=== PATIENT | female | born 1945 | race Caucasian/White ===

== ENCOUNTER 2018-01-21 13:04 | Outpatient (REF) | payer MEDICARE, SELFPAY ==
[2018-01-21 14:19] LABS: ALT 21 U/L (12-78); AST 19 U/L (15-37); Albumin 3.3 g/dL (3.4-5.0); Alkaline Phosphatase 301 U/L (46-116); Anion Gap 11.7 mmol/L (3-11); BUN 50 mg/dL (7-18); Bilirubin, Total 0.3 mg/dL (0.2-1.0); CO2 23.3 mmol/L (21.0-32.0); CREATININE 1.22 mg/dL (0.55-1.02); Calcium 9.3 mg/dL (8.5-10.1); Chloride 101 mmol/L (98-107); Estimated GFR 43.57 (mL/min/1.73m2); Glucose 120 mg/dL (70-100); Potassium 4.6 mmol/L (3.5-5.1); Sodium 136 mmol/L (136-145); TSH (W/Ref FT4) 0.93 uIU/mL (0.358-3.74); Total Protein 6.9 g/dL (6.4-8.2)
[2018-01-21 14:50] LABS: Abs Immature Grans 0.08 k/cumm (0.0-0.09); Absolute Basophil Count 0.05 k/cumm (0.0-0.2); Absolute Eosinophil Count 0.38 k/cumm (0.0-0.7); Absolute Monocyte Count 0.62 k/cumm (0.11-0.7); Absolute Neutrophil Count 4.24 k/cumm (1.2-6.7); Basophils % 0.7; Eosinophils % 5.5; HCT 30.7 % (36.0-46.0); HGB 9.5 g/dL (12.0-15.5); Immature Grans % 1.1; Mean Corp. HGB Concentration 30.9 g/dL (32.0-36.0); Mean Corpuscular Hemoglobin 29.1 pg (27.0-33.0); Mean Corpuscular Volume 94.2 fL (80-95); Mean Platelet Volume 9.2 fL (8.0-11.0); Monocytes % 8.9; Neutrophils % 60.8; RBC 3.26 m/cumm (4.00-5.20); RBC Distribution Width 15.5 % (11.7-14.6); White Blood Cell Count 6.97 k/cumm (4.4-10.8)
[2018-01-21 15:23] LABS: Platelet Count 830 x1000/uL (130-400)
[2018-01-21 15:24] LABS: Anisocytosis 1+; Diff Comment RBC Morph Reviewed; Hypochromasia 1+; Polychromasia Present
== END 2018-01-21 13:05 ==
LOC: LBN 13:04
PROVIDERS: PCP Nurse Practitioner Family; Visit Provider Family Medicine
DX: I10 Essential (primary) hypertension (principal); E78.5 Hyperlipidemia, unspecified
CPT/HCPCS: 80053; 83735; 84443; 85025

== ENCOUNTER 2018-01-29 13:41 | Outpatient (REF) | payer MEDICARE, SELFPAY ==
[2018-01-29 14:35] LABS: Abs Immature Grans 0.03 k/cumm (0.0-0.09); Absolute Basophil Count 0.03 k/cumm (0.0-0.2); Absolute Eosinophil Count 0.46 k/cumm (0.0-0.7); Absolute Monocyte Count 0.33 k/cumm (0.11-0.7); Absolute Neutrophil Count 3.19 k/cumm (1.2-6.7); Basophils % 0.5; Eosinophils % 7.9; HCT 32.5 % (36.0-46.0); Immature Grans % 0.5; Lymphocytes % 30.8; Mean Corp. HGB Concentration 30.8 g/dL (32.0-36.0); Mean Corpuscular Hemoglobin 29.9 pg (27.0-33.0); Mean Platelet Volume 10.5 fL (8.0-11.0); Monocytes % 5.7; Neutrophils % 54.6; Platelet Count 421 x1000/uL (130-400); RBC 3.35 m/cumm (4.00-5.20); RBC Distribution Width 15.2 % (11.7-14.6); White Blood Cell Count 5.84 k/cumm (4.4-10.8)
[2018-01-29 14:58] LABS: Diff Comment PLT Morph Reviewed; RBC Morphology Normal
== END 2018-01-29 13:42 ==
LOC: LBN 13:41
PROVIDERS: PCP Nurse Practitioner Family; Visit Provider Family Medicine
DX: R53.83 Other fatigue (principal)
CPT/HCPCS: 85025

== ENCOUNTER 2018-08-02 22:51 | Inpatient (IN) | payer MEDICARE, SELFPAY ==
[2018-08-02 23:18] VITALS: BP 158/64; PULSE 105; RESP 17; TEMP 36.9; O2SAT 96
[2018-08-02] MEDS: Lactated Ringers 1,000 ML 125 ML IV (23:20)
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
[2018-08-03] VITALS (25 sets, daily range): BP systolic 91–165; BP diastolic 46–91; PULSE 75–102; RESP 12–19; TEMP 36.4–37.9; O2SAT 92–100
[2018-08-03] MEDS: MORPHine 10 MG/ML VIAL IVP ×4 (00:28→06:49)
[2018-08-03] MEDS: Metoprolol 5 MG/5 ML VIAL IVP ×2 (05:09→18:18)
[2018-08-03] MEDS: Levothyroxine 75 MCG TAB PO (05:27)
[2018-08-03] MEDS: Lactated Ringers 1,000 ML 125 ML IV (06:41)
[2018-08-03 07:18] LABS: Absolute Basophil Count 0.01 k/cumm (0.0-0.2); Absolute Eosinophil Count 0.05 k/cumm (0.0-0.7); Absolute Lymphocyte Count 1.43 k/cumm (1.2-3.4); Absolute Monocyte Count 0.78 k/cumm (0.11-0.7); Absolute Neutrophil Count 4.67 k/cumm (1.2-6.7); Basophils % 0.1; Eosinophils % 0.7; HCT 33.1 % (36.0-46.0); HGB 10.8 g/dL (12.0-15.5); Lymphocytes % 20.6; Mean Corp. HGB Concentration 32.6 g/dL (32.0-36.0); Mean Corpuscular Hemoglobin 30.2 pg (27.0-33.0); Mean Corpuscular Volume 92.5 fL (80-95); Mean Platelet Volume 9.4 fL (8.0-11.0); Monocytes % 11.2; Neutrophils % 67.4; Platelet Count 319 x1000/uL (130-400); RBC 3.58 m/cumm (4.00-5.20); RBC Distribution Width 15.6 % (11.7-14.6); White Blood Cell Count 6.94 k/cumm (4.4-10.8)
[2018-08-03 07:38] LABS: Anion Gap 9.5 mmol/L (3-11); BUN 14 mg/dL (7-18); CO2 26.5 mmol/L (21.0-32.0); CREATININE 0.78 mg/dL (0.55-1.02); Calcium 8.5 mg/dL (8.5-10.1); Chloride 103 mmol/L (98-107); Glucose 134 mg/dL (70-100); Magnesium 1.4 mg/dL (1.8-2.4); Potassium 3.4 mmol/L (3.5-5.1); Sodium 139 mmol/L (136-145); TSH (W/Ref FT4) 4.09 uIU/mL (0.358-3.74)
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
[2018-08-03 07:54] LABS: FREE T4 1.15 ng/dL (0.76-1.46)
[2018-08-03] MEDS: Gabapentin 100 MG CAP PO ×3 (08:19→20:57)
[2018-08-03] MEDS: Omeprazole 20 MG CAPCR PO (08:19)
[2018-08-03] MEDS: Citalopram 20 MG TAB 40 MG PO (08:19)
[2018-08-03] MEDS: amLODIPine 5 MG TAB PO (08:19)
[2018-08-03] MEDS: Lactated Ringers 1,000 ML 75 ML IV (09:40)
[2018-08-03] MEDS: Bupivacaine 0.25% Pres-Free 30 ML VIAL (10:21)
--- NOTE | 2018-08-03 10:32 | DI.RAD_ITS ---
SYMPTOM/DIAGNOSIS: H/O ATYPICAL FEMUR FX, S/P IMN OF FEMUR FX LEFT FEMUR: No fracture or dislocation is seen. There is hardware in the proximal tibia. IMPRESSION: No acute abnormality RIGHT FEMUR: An intramedullary romero has been placed through the femur for fixation of a previously noted fracture in the upper third of the femur. The alignment now appears anatomic. RIGHT FEMUR IN OR: Fluoroscopy Time: 136.7 sec, 8.67 mGy Fluoroscopy was provided in the OR for Dr. Best. Hard copy images show placement of an intramedullary romero through the femur for fixation of the previously noted fracture. The alignment appears anatomic.
--- NOTE | 2018-08-03 12:02 | DI.VRAD_ITS ---
EXAM: XR Right Femur, 2 Views EXAM DATE/TIME: 08/03/2018 10:29 AM CLINICAL HISTORY: 73 years old, female; Pain; Hip; Right; Prior surgery; Surgery date: Post-operative (0-2 days); Surgery type: Imn; Patient HX: S/P imn of RT femur fracture. TECHNIQUE: XR Right femur, 2 views COMPARISON: RF RIGHT HIP, TNFR RT FEMUR 08/03/2018 9:43 AM FINDINGS: Bones/joints: Placement of large intramedullary romero in the femoral shaft with near anatomic alignment and position of femoral shaft fracture. Chronic metallic fixation of the proximal tibia with healed fracture. Soft tissues: Soft tissue emphysema over the lateral right thigh and in the region of the right femoral shaft consistent with recent surgery. Skin cordelia along the lateral aspect of the thigh. IMPRESSION: 1. Soft tissue emphysema over the lateral right thigh and in the region of the right femoral shaft consistent with recent surgery. 2. Skin cordelia along the lateral aspect of the thigh. 3. Placement of large intramedullary romero in the femoral shaft with near anatomic alignment and position of femoral shaft fracture. Dictated and Authenticated by: Tim Palmer MD. Ordering:JUAN ANTONIO Jones MD
--- NOTE | 2018-08-03 12:04 | DI.VRAD_ITS ---
EXAM: XR Left Femur, 2 Views EXAM DATE/TIME: 08/03/2018 11:55 AM CLINICAL HISTORY: 73 years old, female; Pain; Hip and other: Femur; Left; Patient HX: H/o of atypical femur FX on RT. TECHNIQUE: XR Left femur, 2 views COMPARISON: No relevant prior studies available. FINDINGS: Bones/joints: Metallic fixation of healed proximal tibial fracture versus healed osteotomy. Soft tissues: Normal. IMPRESSION: Metallic fixation of healed proximal tibial fracture versus healed osteotomy. Probable oblique vascular nutrient channel over the mid femoral shaft. Dictated and Authenticated by: Tim Palmer MD. Ordering:JUAN ANTONIO Jones MD
[2018-08-03] MEDS: POTASSIUM CHLORIDE 20 MEQ/100 ML BAG 50 MEQ IVPB ×2 (12:33→16:21)
[2018-08-03] MEDS: MAGNESIUM SULFATE 4 GM/100 ML BAG IVPB (12:34)
[2018-08-03] MEDS: Ketorolac 15 MG/ML VIAL IVP (16:17)
--- NOTE | 2018-08-03 16:26 | NUR.NOTE ---
Nursing Note: Patient comes back from PACU she is pale and tired, bp and pulse soft. Chidi Krishnan MADE AWARE, IV METOPROLOL 12 O'CLOCK DOSE NOT ADMINISTERED. 02 sat declines with any activity, patient has 2 nL 02 by nasal on at this time. Pain has been managed this far. Dressing is clean, dry, intact. Patient is given IS gives good return demonstration. 4 gm of mag ran ivpb for a value 0f 1.4, 2 runs 20 meq in a 100 bag run at 10 meq an hour. k is valued at 3.4. K is irritating for patient, so a concurrent drip of NS at 50 ml/hr was initiated, patient tolerates this. Will continue to monitor and offer supportive care
[2018-08-03] MEDS: Normal Saline Flush 10 ML SYR (18:32)
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
--- NOTE | 2018-08-03 19:26 | W.PM.PROGNOT ---
Date of Service Date of service: 08/03/18 Time of Service: 19:27 Assessment and Plan (1) Closed right femoral fracture: Current visit: Yes Status: Acute Evidence of a displaced right sided midshaft femoral fracture, s/p surgical repair this morning. Of note, in review of Dr. Best's note the patient appears to have had prior history of bisphosphonate use (took 'something once a week for bones'), and her current appearance and location of the fracture may suggest atypical features suggestive of fracture associated with bisphosphonate use. Will check Vitamin D and Calcium levels as well. PT consult placed. Continue pain control. Monitor H/H. Qualifiers: Encounter type: initial encounter Femur location: shaft Fracture morphology: transverse Fracture alignment: displaced Fracture healing: Qualified Code(s): S72.321A - Displaced transverse fracture of shaft of right femur, initial encounter for closed fracture (2) Lumbar back pain with radiculopathy affecting right lower extremity: Current visit: No Status: Chronic Continue Gabapentin. Currently with Amitryptilline on hold as potential contributing factor to patient's chronic imbalance. (3) Heart murmur: Current visit: No Status: Chronic Potential MR based on admitting attending's bedside ECHO. Will recommend official ECHO, either here or as an outpatient. (4) Hypothyroidism (acquired): Current visit: No Status: Chronic Continue replacement therapy. (5) DVT prophylaxis: Current visit: Yes Status: Acute SC Lovenox as initiated by Ortho. Subjective Interval history since last seen: 73 year old woman with a prior history significant for chronic imbalance, admitted from [facility] Emergency Department following a mechanical fall with subsequent right sided femoral fracture. Mrs. Perez has a past medical history significant for HTN, dyslipidemia, hypothyroidism, and depression. There is noted chronic LBP with radiculopathy involving the RLE. She reports an approximate 2-year history of chronic imbalance and gait unsteadiness. On the night of her admission she sustained a fall while in the kitchen. She took a step away from the counter and lost her balance and fell onto her right side fracturing her right mid femur. She was on the floor for approximately 3 hours prior to discovery by a friend. Patient lives in [place] and was sent to the ED at [facility] but due to lack of orthopedic coverage the patient was transferred to [facility] and accepted by Dr. Robert Best. Exam Narrative Exam Narrative: General: Patient appears comfortable, AAOX3, NAD Neck: Supple CV: Regular, nontachycardic, S1S2, No rubs, murmurs, or gallops. Pulmonary: Clear to auscultation bilaterally, no crackles, wheezing, or rhonchi Abdomen: + Bowel Sounds, soft, nontender, nondistended Vascular: No lower extremity edema Neurologic: CN II-XII grossly intact. No focal deficits. Psych: Normal mood and affect. Objective Objective Clinical Data: Abnormal lab results 08/03/18 08/03/18 Range/Units 07:00 07:00 RBC 3.58 L (4.00-5.20) m/cumm Hgb 10.8 L (12.0-15.5) g/dL Hct 33.1 L (36.0-46.0) % RDW 15.6 H (11.7-14.6) % Absolute Monocytes 0.78 H (0.11-0.7) k/cumm Potassium 3.4 L (3.5-5.1) mmol/L Glucose 134 H (70-100) mg/dL Magnesium 1.4 L (1.8-2.4) mg/dL TSH 4.09 H (0.358-3.74) uIU/mL Vital Signs Temperature 37.0 C 08/03/18 16:26 Temperature Source Tympanic 08/03/18 16:26 Pulse 92 H 08/03/18 18:18 Pulse Rhythm Regular 08/03/18 08:00 Respiratory Rate 19 08/03/18 16:26 Respiratory Effort 08/03/18 08:00 Respiratory Depth Normal 08/03/18 08:00 Respiratory Pattern Normal 08/03/18 08:00 Blood Pressure 105/63 08/03/18 18:18 Pulse Oximetry 98 08/03/18 16:26 Respiratory End-tidal CO2 36 08/03/18 11:57 Oxygen Delivery Method Nasal Cannula 08/03/18 16:26 Oxygen Flow Rate 1.5 08/03/18 16:26 Pain Level 0 08/03/18 16:17 Comment 08/03/18 12:30 Intake & Output 08/02/18 08/03/18 08/03/18 23:59 11:59 23:59 Intake Total 2538.75 / 3188.75 650 / 3188.75 Output Total 350 / 350 625 / 700 75 / 700 Balance -350 / -350 1913.75 / 2488.75 575 / 2488.75 Weight 60.5 kg Intake: IV 2538.75 / 2888.75 350 / 2888.75 Oral 300 / 300 Output: Urine 350 / 350 525 / 600 75 / 600 Estimated Blood Loss 100 / 100 Other: Urine Color Light Suzanna Light Suzanna Yellow Urine Appearance Clear Clear Clear Comment intra op Emesis Description None Laboratory Results WBC 6.94 k/cumm (4.4-10.8) 08/03/18 07:00 RBC 3.58 m/cumm (4.00-5.20) L 08/03/18 07:00 Hgb 10.8 g/dL (12.0-15.5) L 08/03/18 07:00 Hct 33.1 % (36.0-46.0) L 08/03/18 07:00 MCV 92.5 fL (80-95) 08/03/18 07:00 MCH 30.2 pg (27.0-33.0) 08/03/18 07:00 MCHC 32.6 g/dL (32.0-36.0) 08/03/18 07:00 RDW 15.6 % (11.7-14.6) H 08/03/18 07:00 Plt Count 319 x1000/uL (130-400) 08/03/18 07:00 MPV 9.4 fL (8.0-11.0) 08/03/18 07:00 Immature Gran % 0.0 08/03/18 07:00 Neutrophils % 67.4 08/03/18 07:00 Lymphocytes % 20.6 08/03/18 07:00 Monocytes % 11.2 08/03/18 07:00 Eosinophils % 0.7 08/03/18 07:00 Basophils % 0.1 08/03/18 07:00 Absolute Neutrophils 4.67 k/cumm (1.2-6.7) 08/03/18 07:00 Absolute Lymphocytes 1.43 k/cumm (1.2-3.4) 08/03/18 07:00 Absolute Monocytes 0.78 k/cumm (0.11-0.7) H 08/03/18 07:00 Absolute Eosinophils 0.05 k/cumm (0.0-0.7) 08/03/18 07:00 Absolute Basophils 0.01 k/cumm (0.0-0.2) 08/03/18 07:00 Sodium 139 mmol/L (136-145) 08/03/18 07:00 Potassium 3.4 mmol/L (3.5-5.1) L 08/03/18 07:00 Chloride 103 mmol/L (98-107) 08/03/18 07:00 Carbon Dioxide 26.5 mmol/L (21.0-32.0) 08/03/18 07:00 Anion Gap 9.5 mmol/L (3-11) 08/03/18 07:00 BUN 14 mg/dL (7-18) 08/03/18 07:00 Creatinine 0.78 mg/dL (0.55-1.02) 08/03/18 07:00 Estimated GFR/1.73 m2 >= 60.00 (mL/min/1.73m2) 08/03/18 07:00 Glucose 134 mg/dL (70-100) H 08/03/18 07:00 Calcium 8.5 mg/dL (8.5-10.1) 08/03/18 07:00 Magnesium 1.4 mg/dL (1.8-2.4) L 08/03/18 07:00 TSH 4.09 uIU/mL (0.358-3.74) H 08/03/18 07:00 Free T4 1.15 ng/dL (0.76-1.46) 08/03/18 07:00 Patient ABO/Rh A Positive 08/03/18 07:00 Antibody Screen Negative 08/03/18 07:00
[2018-08-03] MEDS: Ibuprofen 600 MG TAB PO (20:57)
[2018-08-03] MEDS: Nystatin POWDER 60 GM JAR TP (20:58)
[2018-08-03] MEDS: Simvastatin 10 MG TAB PO (21:42)
[2018-08-03] MEDS: Melatonin 3 MG TAB 6 MG PO (21:43)
[2018-08-03] MEDS: Cephalexin 500 MG CAP PO (23:28)
[2018-08-04] VITALS (7 sets, daily range): BP systolic 90–118; BP diastolic 56–66; PULSE 75–86; RESP 16–20; TEMP 36.2–37.4; O2SAT 86–99
[2018-08-04] MEDS: Levothyroxine 75 MCG TAB PO (05:20)
[2018-08-04] MEDS: Ibuprofen 600 MG TAB PO ×3 (05:20→20:32)
[2018-08-04 07:31] LABS: Albumin 2.1 g/dL (3.4-5.0); Anion Gap 6.4 mmol/L (3-11); BUN 18 mg/dL (7-18); CO2 25.6 mmol/L (21.0-32.0); Chloride 108 mmol/L (98-107); Estimated GFR 54.66 (mL/min/1.73m2); Glucose 99 mg/dL (70-100); Potassium 3.9 mmol/L (3.5-5.1); Sodium 140 mmol/L (136-145)
[2018-08-04 07:32] LABS: Abs Immature Grans 0.01 k/cumm (0.0-0.09); Absolute Basophil Count 0.01 k/cumm (0.0-0.2); Absolute Eosinophil Count 0.21 k/cumm (0.0-0.7); Absolute Lymphocyte Count 1.59 k/cumm (1.2-3.4); Absolute Monocyte Count 1.03 k/cumm (0.11-0.7); Absolute Neutrophil Count 3.61 k/cumm (1.2-6.7); Basophils % 0.2; Eosinophils % 3.3; Immature Grans % 0.2; Lymphocytes % 24.6; Mean Corpuscular Hemoglobin 30.4 pg (27.0-33.0); Mean Corpuscular Volume 95.1 fL (80-95); Mean Platelet Volume 9.9 fL (8.0-11.0); Monocytes % 15.9; Neutrophils % 55.8; Platelet Count 219 x1000/uL (130-400); RBC 2.63 m/cumm (4.00-5.20); RBC Distribution Width 15.5 % (11.7-14.6); White Blood Cell Count 6.46 k/cumm (4.4-10.8)
[2018-08-04] MEDS: Enoxaparin 40 MG/0.4 ML SYR SC (08:28)
[2018-08-04] MEDS: amLODIPine 5 MG TAB PO (08:28)
[2018-08-04] MEDS: Cephalexin 500 MG CAP PO ×2 (08:28→15:38)
[2018-08-04] MEDS: Citalopram 20 MG TAB 40 MG PO (08:28)
[2018-08-04] MEDS: Omeprazole 20 MG CAPCR PO (08:28)
[2018-08-04] MEDS: Gabapentin 100 MG CAP PO ×3 (08:28→20:32)
[2018-08-04] MEDS: Lisinopril 20 MG TAB 40 MG PO (08:28)
[2018-08-04] MEDS: Nystatin POWDER 60 GM JAR TP ×2 (08:30→20:32)
[2018-08-04] MEDS: Acetaminophen 325 MG TAB PO (09:25)
[2018-08-04] MEDS: oxyCODONE 5 MG TAB PO ×2 (09:31→16:54)
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
[2018-08-04] MEDS: Potassium Chloride 10 MEQ TABCR PO (10:40)
[2018-08-04] MEDS: Magnesium Oxide 400 MG TAB PO (10:40)
--- NOTE | 2018-08-04 11:14 | IN_ITS ---
Date of service: 08/04/18 Time of Service: 09:25 PT Notes Inpatient Physical Therapy Evaluation Date: 08/04/18 Referring Doctor: Robert Best MD PT Orders: PT CONSULT: s/p IMN R Femur, WBAT with assistive device Precautions: WBAT on R with AD Patient Profile/Admitting Diagnosis: Is received for this 73-year-old female who suffered a fall at home. She was actually on the floor for over 3 hours until she was femur was identified. Consultation was utilized in the operative correction. This present time she is lying in bed complaining of minimal pain that she is just pain control medication and has not yet moved PMHX: Heart murmur, depression, hypothyroid, itching, lower leg fracture, lumbar spine pain Social History/Home Situation: Patient lives alone locally in the area she has friends and family who check on closely Equipment Owned/DME: Patient utilizes a FWW walker Subjective: Patient states she is feeling okay today but has not moved she is willing to get out of bed if that is what is needed Objective: Patient lying supine in bed with head of bed to 25 degrees, Abdul catheter in place, supplemental O2 delivered via nasal cannula Mental Status: Alert and oriented to person place and time Pain: 2 out of 10 ROM: Right Upper Extremity: Within normal limits Left Upper Extremity: Within normal limits Right Lower Extremity: Hip flexion to 90 degrees, knee range of motion within normal limits, ankle range of motion within normal limits Left Lower Extremity: Within normal limits Strength: Right Upper Extremity: Globally 4+ out of 5 Left Upper Extremity: Globally 4+ out of 5 Right Lower Extremity: Quads 4 out of 5 reluctant due to pain, hamstrings 4-5 reluctant due to pain, dorsiflexion plantarflexion 5 out of 5 Left Lower Extremity: Globally 5 out of 5 Bed Mobility/Transfers: Patient requires moderate assistance with rolling in bed mobility Supine-sit: Moderate assistance with head of bed to 25 degrees Sit-stand: Moderate assistance into front wheel walker Stand-sit: Moderate assistance and front wheel walker Gait: Patient is reluctant to advance any steps today Balance: Static Sitting: Fair Dynamic Sitting: Fair Static Standing: Poor Dynamic Standing: Poor Special Tests: Mobility Limitations Standardized Measure [facility] AM-PAC 6 clicks Basic Mobility Inpatient Short Form: Raw Score: 10 Standardized Score: 32.29 CMS Score: 76.75 CMS Modifier: CL Informed Consent/Education: Patient instructed in purpose of PT consult and plan of care. ASSESSMENT: Patient is a 73-year-old female with a history of good physical health Admitted with diagnosis of fracture to the femur following fall with IMN fixation through the femur Patient presents with the following impairment level findings: Moderate assistance required for bed mobility and transferring sit to stand, patient reluctant to begin ambulation, limited range of motion through the right lower extremity, and limited strength Pt will benefit from skilled therapy intervention in order to remediate her functional limitations and restore patient to a more appropriate and stable functional level. Impairments are contributing to the following functional limitations: AMPAC score CMS Score: 76.75 Patient is assessed as a moderate complexity initial evaluation based on the following: History: see above Examination: see above Presentation: Evolving Decision Making: Moderate based on impact score of 76.75 Goals: Goals X1 week 1. Supine-Sit SBA 2. Sit-Supine SBA 3. Sit-Stand SBA with FWW 4. Stand-Sit SBA with FWW 5. Bed-Chair SBA with FWW 6. Gait up to 50feet with FWW and SBA 7: Independent in Home program Plan of Care/Treatment Plan: 1-2x/day, 7 days/week x 1 week. Plan of care has been reviewed with the SOFTWARE SYSTEMS ARCHITECT providing the service under Physical Therapy direction. Initiate Physical Therapy intervention for strengthening, bed mobility, transfers, gait, stairs, balance training, use of assistive device. DISCHARGE RECOMMENDATIONS: To home if goals are complete, otherwise may want to consider SNF TREATMENT CODE/TIME: Moderate complexity initial evaluation [id number] 30 min at 9:25
--- NOTE | 2018-08-04 11:34 | W.NUTCONSULT ---
Date of service: 08/04/18 Time of Service: 11:34 Nutritional Consult ASSESSMENT: Nutrition consult for recommendations to increase protein intake secondary to fracture and global weakness. Ms. Perez is on a regular nutrition therapy. She is eating 100% of her meals here. She is 60 and 60.5 kg. Her BMI is 26 kg/m2 which is WNL for her age. Her estimated energy needs given her physiologic stress are 1625 kcal/day (REE x 1.2 activity factor x 1.3 stress factor) Her estimated protein needs are 91 grams per day (1.5g/kg/day). Her appetite is good. NUTRITIONAL DIAGNOSIS: Increased nutritional needs related to increased physiological stress. INTERVENTION: CDM and/or RDN will offer Ms. Perze Juan Francisco supplements for healing as well as liquid nutritional supplements that may appeal to her (milkshakes, CIB, Ensure etc). Although she is eating well at meals, she is likely only getting 60 grams of protein per day from her meals. The high calorie, high protein liquid nutrition is often an easier method for patients to boost their intake. MONITORING AND EVALUATION: 1. Will continue to monitor her progress. Will monitor her tolerance to supplements, her weight, and her overall PO intake. 2. Will evaluate nutrition care plan ongoing and adjust as needed. Time Spent in Nutritional Counseling and Treatment: JASMYN
--- NOTE | 2018-08-04 12:50 | W.PM.PROGNOT ---
Date of Service Date of service: 08/04/18 Time of Service: 12:50 Assessment and Plan (1) Closed right femoral fracture: Current visit: Yes Status: Acute Gilma is postop day #1 from a intramedullary nail fixation of a right midshaft femur fracture. This is likely an atypical femur fracture variant. She is doing well. Her pain is well controlled. She did have a drop in hemoglobin representing acute postoperative blood loss anemia. She seems have no significant occasions. We will can start with physical therapy today. We will start enoxaparin for DVT prophylaxis. [facility] facility will likely be required on discharge. Weightbearing as tolerated with assistive devices. Qualifiers: Encounter type: initial encounter Femur location: shaft Fracture morphology: transverse Fracture alignment: displaced Fracture healing: Qualified Code(s): S72.321A - Displaced transverse fracture of shaft of right femur, initial encounter for closed fracture Subjective Interval history since last seen: Gilma is doing well status post intramedullary nail fixation of her right femur fracture. She has not had any significant pain. However, she has not try to move too terribly much. She is doing much better now than she was before the surgery. She denies any significant chest pain or shortness of breath. No lightheadedness. No numbness or tingling. Any discomfort she has is over the lateral aspect of the right thigh. Exam Narrative Exam Narrative: No acute distress. Alert x3. Dressings are clean dry and intact. Minimal swelling. No significant ecchymosis. Intact ankle dorsiflexion and plantar flexion as well as great toe extension and flexion. Sensation intact light touch over the femoral and peroneal distributions. The foot is warm and well perfused. Objective Objective Clinical Data: Abnormal lab results 08/04/18 08/04/18 Range/Units 07:01 07:01 RBC 2.63 L (4.00-5.20) m/cumm Hgb 8.0 L D (12.0-15.5) g/dL Hct 25.0 L D (36.0-46.0) % MCV 95.1 H (80-95) fL RDW 15.5 H (11.7-14.6) % Absolute Monocytes 1.03 H (0.11-0.7) k/cumm Chloride 108 H (98-107) mmol/L Calcium 8.0 L (8.5-10.1) mg/dL Albumin 2.1 L (3.4-5.0) g/dL Vital Signs Temperature 36.8 C 08/04/18 11:40 Temperature Source Tympanic 08/04/18 11:40 Pulse 82 08/04/18 11:40 Pulse Rhythm Regular 08/04/18 11:04 Respiratory Rate 18 08/04/18 11:40 Respiratory Effort 08/04/18 11:04 Respiratory Depth Normal 08/04/18 11:04 Respiratory Pattern Normal 08/04/18 11:04 Blood Pressure 90/56 L 08/04/18 11:40 Pulse Oximetry 98 08/04/18 11:40 Respiratory End-tidal CO2 36 08/03/18 11:57 Oxygen Delivery Method Nasal Cannula 08/04/18 11:40 Oxygen Flow Rate 2 08/04/18 11:40 Pain Level 0 08/04/18 11:40 Comment 08/03/18 12:30 Intake & Output 08/03/18 08/04/18 08/04/18 23:59 11:59 23:59 Intake Total 1340 / 3878.75 360 / 360 Output Total 75 / 700 550 / 550 Balance 1265 / 3178.75 -190 / -190 Intake: IV 800 / 3338.75 Oral 540 / 540 360 / 360 Output: Urine 75 / 600 550 / 550 Other: Urine Color Yellow Yellow Urine Appearance Clear Clear Laboratory Results WBC 6.46 k/cumm (4.4-10.8) 08/04/18 07:01 RBC 2.63 m/cumm (4.00-5.20) L 08/04/18 07:01 Hgb 8.0 g/dL (12.0-15.5) L D 08/04/18 07:01 Hct 25.0 % (36.0-46.0) L D 08/04/18 07:01 MCV 95.1 fL (80-95) H 08/04/18 07:01 MCH 30.4 pg (27.0-33.0) 08/04/18 07:01 MCHC 32.0 g/dL (32.0-36.0) 08/04/18 07:01 RDW 15.5 % (11.7-14.6) H 08/04/18 07:01 Plt Count 219 x1000/uL (130-400) D 08/04/18 07:01 MPV 9.9 fL (8.0-11.0) 08/04/18 07:01 Immature Gran % 0.2 08/04/18 07:01 Neutrophils % 55.8 08/04/18 07:01 Lymphocytes % 24.6 08/04/18 07:01 Monocytes % 15.9 08/04/18 07:01 Eosinophils % 3.3 08/04/18 07:01 Basophils % 0.2 08/04/18 07:01 Absolute Neutrophils 3.61 k/cumm (1.2-6.7) 08/04/18 07:01 Absolute Lymphocytes 1.59 k/cumm (1.2-3.4) 08/04/18 07:01 Absolute Monocytes 1.03 k/cumm (0.11-0.7) H 08/04/18 07:01 Absolute Eosinophils 0.21 k/cumm (0.0-0.7) 08/04/18 07:01 Absolute Basophils 0.01 k/cumm (0.0-0.2) 08/04/18 07:01 Sodium 140 mmol/L (136-145) 08/04/18 07:01 Potassium 3.9 mmol/L (3.5-5.1) 08/04/18 07:01 Chloride 108 mmol/L (98-107) H 08/04/18 07:01 Carbon Dioxide 25.6 mmol/L (21.0-32.0) 08/04/18 07:01 Anion Gap 6.4 mmol/L (3-11) 08/04/18 07:01 BUN 18 mg/dL (7-18) 08/04/18 07:01 Creatinine 1.00 mg/dL (0.55-1.02) 08/04/18 07:01 Estimated GFR/1.73 m2 54.66 (mL/min/1.73m2) 08/04/18 07:01 Glucose 99 mg/dL (70-100) 08/04/18 07:01 Calcium 8.0 mg/dL (8.5-10.1) L 08/04/18 07:01 Magnesium 1.4 mg/dL (1.8-2.4) L 08/03/18 07:00 Albumin 2.1 g/dL (3.4-5.0) L 08/04/18 07:01 TSH 4.09 uIU/mL (0.358-3.74) H 08/03/18 07:00 Free T4 1.15 ng/dL (0.76-1.46) 08/03/18 07:00 Patient ABO/Rh A Positive 08/03/18 07:00 Antibody Screen Negative 08/03/18 07:00
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
--- NOTE | 2018-08-04 17:44 | PGE_ITS ---
Date of Service Date of service: 08/04/18 Time of Service: 17:37 Assessment and Plan (1) Closed right femoral fracture: Current visit: Yes Status: Acute Evidence of a displaced right sided midshaft femoral fracture, s/p surgical repair on 08/03. Pain appears controlled. Of note, in review of Dr. Best's note the patient appears to have had prior history of bisphosphonate use (took 'something once a week for bones'), and her current appearance and location of the fracture may suggest atypical features suggestive of fracture associated with bisphosphonate use. Vitamin D level checked and pending. Corrected Calcium is normal. PT consult placed. Continue pain control. Monitor H/H carefully. Will likely require SNF level care at discharge. Qualifiers: Encounter type: initial encounter Femur location: shaft Fracture morphology: transverse Fracture alignment: displaced Fracture healing: Qualified Code(s): S72.321A - Displaced transverse fracture of shaft of right femur, initial encounter for closed fracture (2) Anemia: Current visit: Yes Status: Chronic Normocytic, with some degree of anemia in the past, and expected post-op blood loss anemia following. Monitor H/H. (3) History of alcohol abuse: Current visit: Yes Status: Acute Reports sobriety for 7 months. No need for CIWA at this time. (4) Lumbar back pain with radiculopathy affecting right lower extremity: Current visit: No Status: Chronic Continue Gabapentin. Currently with Amitryptilline on hold as potential contributing factor to patient's chronic imbalance. (5) Heart murmur: Current visit: No Status: Chronic Potential MR based on admitting attending's bedside ECHO. Will recommend official ECHO, either here or as an outpatient. (6) Hypothyroidism (acquired): Current visit: No Status: Chronic Continue replacement therapy. (7) DVT prophylaxis: Current visit: Yes Status: Acute SC Lovenox as initiated by Ortho. Subjective Interval history since last seen: 73 year old woman with a prior history significant for chronic imbalance, admitted from [facility] Emergency Department following a mechanical fall with subsequent right sided femoral fracture. Mrs. Perez has a past medical history significant for HTN, dyslipidemia, hypothyroidism, and depression. There is noted chronic LBP with radiculopathy involving the RLE. She reports an approximate 2-year history of chronic imbalance and gait unsteadiness. On the night of her admission she sustained a fall while in the kitchen. She took a step away from the counter and lost her balance and fell onto her right side fracturing her right mid femur. She was on the floor for approximately 3 hours prior to discovery by a friend. Patient lives in [place] and was sent to the ED at [facility] but due to lack of orthopedic coverage the patient was transferred to [facility] and accepted by Dr. Robert Best. She underwent a successful surgical repair on 08/03, and appears to be doing well today. No overnight events reported. She appears slightly more anemic today, and mildly hypotensive. Afebrile. Exam Narrative Exam Narrative: General: Patient appears comfortable, AAOX3, NAD. Pale. Neck: Supple CV: Regular, nontachycardic, S1S2, No rubs, murmurs, or gallops. Pulmonary: Clear to auscultation bilaterally, no crackles, wheezing, or rhonchi on limited anterior and lateral exam Abdomen: + Bowel Sounds, soft, nontender, nondistended Vascular: No lower extremity edema Psych: Normal mood and affect. Objective Objective Clinical Data: Abnormal lab results 08/04/18 08/04/18 Range/Units 07:01 07:01 RBC 2.63 L (4.00-5.20) m/cumm Hgb 8.0 L D (12.0-15.5) g/dL Hct 25.0 L D (36.0-46.0) % MCV 95.1 H (80-95) fL RDW 15.5 H (11.7-14.6) % Absolute Monocytes 1.03 H (0.11-0.7) k/cumm Chloride 108 H (98-107) mmol/L Calcium 8.0 L (8.5-10.1) mg/dL Albumin 2.1 L (3.4-5.0) g/dL Vital Signs Temperature 36.8 C 08/04/18 11:40 Temperature Source Tympanic 08/04/18 11:40 Pulse 82 08/04/18 11:40 Pulse Rhythm Regular 08/04/18 11:04 Respiratory Rate 18 08/04/18 11:40 Respiratory Effort 08/04/18 11:04 Respiratory Depth Normal 08/04/18 11:04 Respiratory Pattern Normal 08/04/18 11:04 Blood Pressure 90/56 L 08/04/18 11:40 Pulse Oximetry 98 08/04/18 11:40 Respiratory End-tidal CO2 36 08/03/18 11:57 Oxygen Delivery Method Nasal Cannula 08/04/18 11:40 Oxygen Flow Rate 2 08/04/18 11:40 Pain Level 5 08/04/18 16:54 Comment 08/03/18 12:30 Intake & Output 08/03/18 08/04/18 08/04/18 23:59 11:59 23:59 Intake Total 1340 / 3878.75 360 / 600 240 / 600 Output Total 75 / 700 550 / 900 350 / 900 Balance 1265 / 3178.75 -190 / -300 -110 / -300 Intake: IV 800 / 3338.75 Oral 540 / 540 360 / 600 240 / 600 Output: Urine 75 / 600 550 / 900 350 / 900 Other: Urine Color Yellow Yellow Yellow Urine Appearance Clear Clear Clear Laboratory Results WBC 6.46 k/cumm (4.4-10.8) 08/04/18 07:01 RBC 2.63 m/cumm (4.00-5.20) L 08/04/18 07:01 Hgb 8.0 g/dL (12.0-15.5) L D 08/04/18 07:01 Hct 25.0 % (36.0-46.0) L D 08/04/18 07:01 MCV 95.1 fL (80-95) H 08/04/18 07:01 MCH 30.4 pg (27.0-33.0) 08/04/18 07:01 MCHC 32.0 g/dL (32.0-36.0) 08/04/18 07:01 RDW 15.5 % (11.7-14.6) H 08/04/18 07:01 Plt Count 219 x1000/uL (130-400) D 08/04/18 07:01 MPV 9.9 fL (8.0-11.0) 08/04/18 07:01 Immature Gran % 0.2 08/04/18 07:01 Neutrophils % 55.8 08/04/18 07:01 Lymphocytes % 24.6 08/04/18 07:01 Monocytes % 15.9 08/04/18 07:01 Eosinophils % 3.3 08/04/18 07:01 Basophils % 0.2 08/04/18 07:01 Absolute Neutrophils 3.61 k/cumm (1.2-6.7) 08/04/18 07:01 Absolute Lymphocytes 1.59 k/cumm (1.2-3.4) 08/04/18 07:01 Absolute Monocytes 1.03 k/cumm (0.11-0.7) H 08/04/18 07:01 Absolute Eosinophils 0.21 k/cumm (0.0-0.7) 08/04/18 07:01 Absolute Basophils 0.01 k/cumm (0.0-0.2) 08/04/18 07:01 Sodium 140 mmol/L (136-145) 08/04/18 07:01 Potassium 3.9 mmol/L (3.5-5.1) 08/04/18 07:01 Chloride 108 mmol/L (98-107) H 08/04/18 07:01 Carbon Dioxide 25.6 mmol/L (21.0-32.0) 08/04/18 07:01 Anion Gap 6.4 mmol/L (3-11) 08/04/18 07:01 BUN 18 mg/dL (7-18) 08/04/18 07:01 Creatinine 1.00 mg/dL (0.55-1.02) 08/04/18 07:01 Estimated GFR/1.73 m2 54.66 (mL/min/1.73m2) 08/04/18 07:01 Glucose 99 mg/dL (70-100) 08/04/18 07:01 Calcium 8.0 mg/dL (8.5-10.1) L 08/04/18 07:01 Magnesium 1.4 mg/dL (1.8-2.4) L 08/03/18 07:00 Albumin 2.1 g/dL (3.4-5.0) L 08/04/18 07:01 TSH 4.09 uIU/mL (0.358-3.74) H 08/03/18 07:00 Free T4 1.15 ng/dL (0.76-1.46) 08/03/18 07:00 Patient ABO/Rh A Positive 08/03/18 07:00 Antibody Screen Negative 08/03/18 07:00
[2018-08-04] MEDS: Melatonin 3 MG TAB 6 MG PO (21:54)
[2018-08-04] MEDS: Simvastatin 10 MG TAB PO (21:54)
[2018-08-05] VITALS (11 sets, daily range): BP systolic 95–134; BP diastolic 58–85; PULSE 75–92; RESP 16–18; TEMP 35.9–37.4; O2SAT 95–99
[2018-08-05] MEDS: Levothyroxine 75 MCG TAB PO (06:10)
[2018-08-05] MEDS: Ibuprofen 600 MG TAB PO ×3 (06:10→20:29)
[2018-08-05 07:25] LABS: HCT 25.2 % (36.0-46.0); HGB 7.8 g/dL (12.0-15.5); Mean Corpuscular Hemoglobin 29.9 pg (27.0-33.0); Mean Corpuscular Volume 96.6 fL (80-95); Mean Platelet Volume 10.3 fL (8.0-11.0); Platelet Count 234 x1000/uL (130-400); RBC 2.61 m/cumm (4.00-5.20); RBC Distribution Width 15.6 % (11.7-14.6); White Blood Cell Count 6.84 k/cumm (4.4-10.8)
[2018-08-05 07:45] LABS: Anion Gap 6.6 mmol/L (3-11); BUN 27 mg/dL (7-18); CO2 25.4 mmol/L (21.0-32.0); CREATININE 1.32 mg/dL (0.55-1.02); Calcium 8.3 mg/dL (8.5-10.1); Chloride 106 mmol/L (98-107); Estimated GFR 39.67 (mL/min/1.73m2); Glucose 101 mg/dL (70-100); Potassium 4.5 mmol/L (3.5-5.1); Sodium 138 mmol/L (136-145)
[2018-08-05 07:45] LABS: Vitamin D 25 Total 32.6 ng/ml (30-100)
[2018-08-05] MEDS: Lisinopril 20 MG TAB 40 MG PO (08:08)
[2018-08-05] MEDS: Omeprazole 20 MG CAPCR PO (08:09)
[2018-08-05] MEDS: Gabapentin 100 MG CAP PO ×3 (08:09→20:29)
[2018-08-05] MEDS: Enoxaparin 40 MG/0.4 ML SYR SC (08:09)
[2018-08-05] MEDS: Acetaminophen 325 MG TAB PO (08:09)
[2018-08-05] MEDS: amLODIPine 5 MG TAB PO (08:09)
[2018-08-05] MEDS: Citalopram 20 MG TAB 40 MG PO (08:09)
[2018-08-05] MEDS: Nystatin POWDER 60 GM JAR TP (08:10)
--- NOTE | 2018-08-05 10:12 | ROE_ITS ---
DATE OF SURGERY: August 03, 2018 PREOPERATIVE DIAGNOSIS: Right midshaft femur fracture. POSTOPERATIVE DIAGNOSIS: Same. SURGERY: Open reduction and intramedullary nail fixation of right femur fracture. SURGEON: Robert Best M.D. EXTENSION EDUCATOR: Krista Stewart PA-C FINDINGS: There was a mostly transverse fracture of the midshaft of the femur. This had the appeara nce of an atypical fracture of peaking of the lateral cortex and oblique medial spike. It was opened to be reduced fully. Once anatomically reduced, it was transfixed with intramedullary nail. ANESTHESIA: General. ESTIMATED BLOOD LOSS: 100 cc's COMPLICATIONS: None. DISPOSITION: The patient was awakened from anesthesia and taken to the PACU in stable condition. INDICATION FOR PROCEDURE: Gilma is a 73-year-old who has been complaining of right lateral thigh pain . Yesterday she was in her kitchen when all of a sudden she fell to the floor. There was no signifi cant mechanical tripping, nor was there any syncope. She had immediate pain. She had deformity. Sh gracie was unable to ambulate. She was seen in the Emergency Department and diagnosed with a femur fractu re. I saw her and recommended operative fixation. I reviewed the risks of the procedure to include bleeding, infection, pain, stiffness, malunion, nonunion, hardware prominence, hardware failure, bloo d clot. Despite these risks, she elected to proceed. PROCEDURE DESCRIPTION: Gilma was greeted in the preoperative holding area. Previously on the floor h er consent was reviewed with the patient and signed. The history and physical was updated. She was cleared by Medicine for surgery. The correct side was identified and marked. She was then taken back to Operating Room. She was placed in the supine position. A general anesthe tic administered. With successful administration of the general anesthetic, she was placed into the fracture table position with the right leg in a fracture boot, well-padded with Webril. The left leg was in a scissor-type position, padded with a pillow and taped to the boom leg. The left arm was pl aced up on an arm board, which was well-padded, and the right arm was placed across her chest, again padded with gel supports. Once in position, preoperative x-rays were obtained. This showed a transv erse fracture of the midshaft of the femur. Closed reduction was able to get the fracture closed, bu t I still was unable to fully reduce the fracture. For this reason, I decided we would open the frac ture. The right leg was then prepped with ChloraPrep and draped in a standard fashion. Prophylactic antibiotics in the form of Cefazolin were given. One gram of tranexamic acid was given before the s tart of the case. A time-out was performed for safe surgery. Using fluoroscopy to identify the starting point, a 5 cm incision was made overlying the lateral aspe ct of the femur. This was taken down sharply through the skin and the IT band. A subvastus approach was taken to the femur. The femur fracture was identified by palpation. Using palpation I was abl e to manipulate the distal aspect of the leg to reduce the fracture. This was a combination of some slight rotation as well as an anterior force on the distal fragment to elevate the sag of the fractur e site. Once this was able to be reduced, a clamp was placed across the fracture and held. An x-ray showed that it was reduced and appeared to be both accurate in rotation and in the coronal and sagit shaylee alignment. I then made an incision proximal to the greater trochanter approximately 3 cm in the skin, taken down to the gluteus fascia. A starting point was placed just medial to the tip of the greater trochanter and down into the femur. Opening this confirmed to be in appropriate position, both on the AP and l ateral. The opening reamer was inserted. A ball-tipped guidewire was then placed through the proxim al femur, across the fracture site into the distal aspect of the femur. It showed to be in a good po sition both in the AP and lateral proximally and distally. This was measured to be 400 mm in length. An 11 x 400 mm right TFNA nail was then chosen and set up on the back table. The femur was then re latoya from 11 to 13 mm. There was notable chatter at 12 mm. The fracture was observed and not displ aced. Once reaming was completed, the nail was inserted with light mallet blows down into the femur. It was set to an appropriate position. It was noted to be in good position both on the AP in dista l and proximal aspects. The fracture was not distracted. The lateral aspect of the thigh was then i ncised for the helical blade insertion. The triple sleeve was then slid down onto the lateral surfac e of the femur. It was taken down all the way to the bone. A guidewire was placed through this and into the femoral head. It was noted to be in a central position on the AP. The lateral was taken, w hich showed a slightly posterior, but very close to center, position on the lateral and therefore was accepted. It was taken to the level of within 5 mm of the end of the femoral head on the AP view. This was measured a size 85 mm helical blade. This helical blade was also opened on the back table a nd assembled to the radiation officer handle. The path for the blade was reamed with the graduated reamer to a depth of 85 mm. The helical blade was inserted with light mallet blows until it fully set down. T he flexible screwdriver was then used to fully set the set screw. This was taken all the way down un til the set screw was well fixed onto the helical blade. There was no need for any sliding or transl ation given the fracture being distal to it. Once this was secured, the remainder of the targeting d evice was then removed from the proximal aspect of the nail. X-rays were taken to confirm appropriat e positioning of the helical blade and the proximal aspect of the nail. We then turned our attention to the fracture site, which appeared to be well-reduced still with the clamp. Distally I placed one screw in the dynamic hole. The perfect st. croix was obtained over the dynamic slot. The proximal asp ect of the dynamic hole was identified and the skin was incised sharply down through the IT band down to bone. Using a 4.2 mm drill, the path of the screw was taken through the lateral cortex through the nail and out the medial cortex. This was measured a size 40 mm screw. A 5 x 40 mm screw was the n inserted with excellent fixation. I then compressed the fracture site with some light blow onto th e heel and onto releasing the tension and traction. It did not seem to fully reduce that lateral asp ect where I assumed there had been a previous stress reaction. However, by palpation, it was well-re duced. Therefore this was left in place. The clamp was removed. A second screw was placed distall y. Again a perfect st. croix of the proximal static hole was filled with a 5 x 38 mm screw. All incision sites were then irrigated thoroughly. A mixture of 20 cc's of 0.5% Bupivacaine with 20 cc's of Exparel was then injected into all incision sites and along the periosteum of the fracture. The deep tissue of the gluteus fascia was closed with #0 Vicryl. The IT band over the lateral femur was closed with #1Vicryl. The deep tissues were closed throughout with a #2-0 Vicryl. The skin was closed with cordelia. The wounds were dressed with Xeroform, 4x4's, and Medipore tape. At the end of the case all counts were correct. Formal x-rays will be obtained in the PACU. Another gram of TXA was administered at the time of closure. She was awakened from anesthesia and taken to the PACU in s table condition.
[2018-08-05] MEDS: diphenhydrAMINE 25 MG CAP PO (10:21)
--- NOTE | 2018-08-05 11:50 | CMPROGNOTE_ITS ---
- If Service Date Differs Date of service: 08/05/18 Time of Service: 11:48 Care Management Progress Note S/O: CM met with patient at the bedside. No change in status today. Hgb is down today she will have a transfusion of packed cells. CM continues to search for SNF placement. Gilma was recently at rehab facility and was discharged on 06/05/18. She may not have any rehab days left and will need to apply for [place] medicaid if eligible. SNF referral is being reviewed by [facility], and [facility]. A: Gilma is a 73 year old female admitted with a femur fracture repaired on 08/03/18. P: Gilma will need short term rehab vs home with home health. CM faxed referrals at the request of the patient. CM to continue to provide support discharge planning and disposition.
--- NOTE | 2018-08-05 16:06 | PT.INTREAT ---
Date of service: 08/05/18 Time of Service: 16:07 PT Notes 08/05/18 SUBJECTIVE: Gilma stating she has 0/10 pain at rest. This increases slightly with movement. OBJECTIVE: Pt seen for two sessions of PT today. TRANSFERS Supine to sit: Mod Ax1 Sit to stand: MOd A x 1 Stand to sit: Mod A x 1 GAIT Device: FWW Weight bearing: WBAT R Assist: Min A Distance: 3' in AM 6' in PM Deviation: Walker management especially during pivots THEREX: Light LE strengthening and ROM activities performed as noted on flow sheet. ASSESSMENT: Significant amount of cueing required for walker management with gait. This did improve slightly during our second session although only tolerated short distance. Pt will benefit from continued PT for gait training and strengthening. PLAN: Continue to progress per established POC. Session #1: 9:05-9:30 [id number], [id number] Session #2: 2:00-2:20 [id number] Aisha Gaytan, TERRAZZO FINISHER HELPER
--- NOTE | 2018-08-05 16:11 | PTTR_ITS ---
Date of service: 08/05/18 Time of Service: 16:07 PT Notes 08/05/18 SUBJECTIVE: Gilma stating she has 0/10 pain at rest. This increases slightly with movement. OBJECTIVE: Pt seen for two sessions of PT today. TRANSFERS Supine to sit: Mod Ax1 Sit to stand: MOd A x 1 Stand to sit: Mod A x 1 GAIT Device: FWW Weight bearing: WBAT R Assist: Min A Distance: 3' in AM 6' in PM Deviation: Walker management especially during pivots THEREX: Light LE strengthening and ROM activities performed as noted on flow sheet. ASSESSMENT: Significant amount of cueing required for walker management with gait. This did improve slightly during our second session although only tolerated short distance. Pt will benefit from continued PT for gait training and strengthening. PLAN: Continue to progress per established POC. Session #1: 9:05-9:30 [id number], [id number] Session #2: 2:00-2:20 [id number] Aisha Gaytan, DROP HAMMER SETTER UP
--- NOTE | 2018-08-05 16:20 | PHARADMIT ---
Addendum entered by Philip Holly III 08/08/18 12:29: Patient transferred to SWING BED Original Note: Admission Pharmacy Clinical Review right mid shaft femur fracture Code Status Full Code Current Weight 62.4 kg Renally Cleared and Narrow Therapeutic Index Meds Crcl ~32.3 mL/min using adjusted body weight -acetaminophen: should be Q6H for GFR 10-50 mL/min -gabapentin: Crcl 30-59 mL/min 200-700 mg BID -ibuprofen: eGFR 30-60 mL/min avoid use in pt's with intercurrent disease that increases risk of CRIS QTc Value / Action Taken n/a BP Control, Fever BP 108/66 afebrile Electrolytes reviewed within normal limits DVT Prophylaxis enoxaparin- watch dosing if renal function gets worse Opiate Usage / Scheduled Bowel Regimen Ordered prn/prn Plt/SCr for Heparin / Enoxaparin plt 234 SCr 1.32 INR for Warfarin n/a H/H stable, WBC/Bands h/h 7.8/25.2 wbc 6.84 Antibiotic appropriateness none- was discontinued Cultures and Sensitivities none Surgical ABX d/c within 24 hr n/a DM control / Insulin Dosing BG 101 none Heart Failure (Check EF%) (ALLISON's, B-Block, Diuretics) lisinopril IV to PO Switch n/a Home Meds Reviewed -amitriptyline may enhance the adverse effects of citalopram -omprazole may increase the serum concentration of citalopram, limit to max dose of 20 mg if used in combo with omeprazole -limit doses of simvastatin to 20 mg when used in combo with amlodipine -multiple DIRECTOR OF PAYROLL depressants: tramadol, gabapentin, amitriptyline Home Meds Not Ordered amitriptyline, oxybutynin, tramadol Comments working on placement I sent MD a message about the citalopram/omeprazole interaction
--- NOTE | 2018-08-05 18:41 | W.PM.PROGNOT ---
Date of Service Date of service: 08/05/18 Time of Service: 18:42 Assessment and Plan (1) Closed right femoral fracture: Current visit: Yes Status: Acute Evidence of a displaced right sided midshaft femoral fracture, s/p surgical repair on 08/03. Pain appears controlled. Of note, in review of Dr. Best's note the patient appears to have had prior history of bisphosphonate use (took 'something once a week for bones'), and her current appearance and location of the fracture may suggest atypical features suggestive of fracture associated with bisphosphonate use. Vitamin D level checked and pending. Corrected Calcium is normal. PT consult placed. Continue pain control. Monitor H/H carefully. Will likely require SNF level care at discharge. Qualifiers: Encounter type: initial encounter Femur location: shaft Fracture morphology: transverse Fracture alignment: displaced Fracture healing: Qualified Code(s): S72.321A - Displaced transverse fracture of shaft of right femur, initial encounter for closed fracture (2) Anemia: Current visit: Yes Status: Chronic Normocytic, with some degree of anemia in the past, and expected post-op blood loss anemia following. However, with mild continued drop, and worsening creatinine as well as fatigue - will transfuse 1 unit today, and monitor H/H. (3) History of alcohol abuse: Current visit: Yes Status: Acute Reports sobriety for 7 months. No need for CIWA at this time. (4) Lumbar back pain with radiculopathy affecting right lower extremity: Current visit: No Status: Chronic Continue Gabapentin. Currently with Amitryptilline on hold as potential contributing factor to patient's chronic imbalance. (5) Heart murmur: Current visit: No Status: Chronic Potential MR based on admitting attending's bedside ECHO. Will recommend official ECHO, either here or as an outpatient. (6) Hypothyroidism (acquired): Current visit: No Status: Chronic Continue replacement therapy. (7) DVT prophylaxis: Current visit: Yes Status: Acute SC Lovenox as initiated by Ortho. Subjective Interval history since last seen: 73 year old woman with a prior history significant for chronic imbalance, admitted from [facility] Emergency Department following a mechanical fall with subsequent right sided femoral fracture. Mrs. Perez has a past medical history significant for HTN, dyslipidemia, hypothyroidism, and depression. There is noted chronic LBP with radiculopathy involving the RLE. She reports an approximate 2-year history of chronic imbalance and gait unsteadiness. On the night of her admission she sustained a fall while in the kitchen. She took a step away from the counter and lost her balance and fell onto her right side fracturing her right mid femur. She was on the floor for approximately 3 hours prior to discovery by a friend. Patient lives in [place] and was sent to the ED at [facility] but due to lack of orthopedic coverage the patient was transferred to [facility] and accepted by Dr. Robert Best. Mrs. Perez underwent a successful surgical repair on 08/03. She's had expected post-op anemia, slightly worse this morning, with mildly elevation in creatinine as well. No overnight events reported. She reports worsening fatigue. Remains afebrile. Exam Narrative Exam Narrative: General: Patient appears comfortable, AAOX3, NAD. Pale. Neck: Supple CV: Regular, nontachycardic, S1S2, No rubs, murmurs, or gallops. Pulmonary: Clear to auscultation bilaterally, no crackles, wheezing, or rhonchi on limited anterior and lateral exam Abdomen: + Bowel Sounds, soft, nontender, nondistended Vascular: No lower extremity edema Psych: Normal mood and affect. Objective Objective Clinical Data: Abnormal lab results 08/03/18 08/05/18 08/05/18 Range/Units 07:00 06:44 06:44 RBC 2.61 L (4.00-5.20) m/cumm Hgb 7.8 L (12.0-15.5) g/dL Hct 25.2 L (36.0-46.0) % MCV 96.6 H (80-95) fL MCHC 31.0 L (32.0-36.0) g/dL RDW 15.6 H (11.7-14.6) % BUN 27 H D (7-18) mg/dL Creatinine 1.32 H (0.55-1.02) mg/dL Glucose 101 H (70-100) mg/dL Calcium 8.3 L (8.5-10.1) mg/dL Crossmatch See Detail 08/05/18 Range/Units 08:48 RBC (4.00-5.20) m/cumm Hgb (12.0-15.5) g/dL Hct (36.0-46.0) % MCV (80-95) fL MCHC (32.0-36.0) g/dL RDW (11.7-14.6) % BUN (7-18) mg/dL Creatinine (0.55-1.02) mg/dL Glucose (70-100) mg/dL Calcium (8.5-10.1) mg/dL Crossmatch See Detail Vital Signs Temperature 37.1 C 08/05/18 16:02 Temperature Source Skin 08/05/18 16:02 Pulse 84 08/05/18 16:02 Pulse Rhythm Regular 08/05/18 09:13 Respiratory Rate 18 08/05/18 16:02 Respiratory Effort 08/05/18 09:13 Respiratory Depth Normal 08/05/18 09:13 Respiratory Pattern Normal 08/05/18 09:13 Blood Pressure 108/66 08/05/18 16:02 Pulse Oximetry 96 08/05/18 18:02 Respiratory End-tidal CO2 36 08/03/18 11:57 Oxygen Delivery Method Room Air 08/05/18 18:02 Oxygen Flow Rate 0 08/05/18 18:02 Pain Level 2 08/05/18 12:31 Comment 08/03/18 12:30 Intake & Output 08/04/18 08/05/18 08/05/18 23:59 11:59 23:59 Intake Total 820 / 1180 910 / 1820 910 / 1820 Output Total 650 / 1200 700 / 700 Balance 170 / -20 210 / 1120 910 / 1120 Weight 62.4 kg Intake: Oral 820 / 1180 910 / 1520 610 / 1520 Blood Product 280 / 280 Rbc Leuko Reduced Unit 280 / 280 [id number] Other Rbc Leuko Reduced Unit [id number] Output: Urine 650 / 1200 700 / 700 Other: Urine Color Dark Suzanna Yellow Urine Appearance Clear Clear Laboratory Results WBC 6.84 k/cumm (4.4-10.8) 08/05/18 06:44 RBC 2.61 m/cumm (4.00-5.20) L 08/05/18 06:44 Hgb 7.8 g/dL (12.0-15.5) L 08/05/18 06:44 Hct 25.2 % (36.0-46.0) L 08/05/18 06:44 MCV 96.6 fL (80-95) H 08/05/18 06:44 MCH 29.9 pg (27.0-33.0) 08/05/18 06:44 MCHC 31.0 g/dL (32.0-36.0) L 08/05/18 06:44 RDW 15.6 % (11.7-14.6) H 08/05/18 06:44 Plt Count 234 x1000/uL (130-400) 08/05/18 06:44 MPV 10.3 fL (8.0-11.0) 08/05/18 06:44 Immature Gran % 0.2 08/04/18 07:01 Neutrophils % 55.8 08/04/18 07:01 Lymphocytes % 24.6 08/04/18 07:01 Monocytes % 15.9 08/04/18 07:01 Eosinophils % 3.3 08/04/18 07:01 Basophils % 0.2 08/04/18 07:01 Absolute Neutrophils 3.61 k/cumm (1.2-6.7) 08/04/18 07:01 Absolute Lymphocytes 1.59 k/cumm (1.2-3.4) 08/04/18 07:01 Absolute Monocytes 1.03 k/cumm (0.11-0.7) H 08/04/18 07:01 Absolute Eosinophils 0.21 k/cumm (0.0-0.7) 08/04/18 07:01 Absolute Basophils 0.01 k/cumm (0.0-0.2) 08/04/18 07:01 Sodium 138 mmol/L (136-145) 08/05/18 06:44 Potassium 4.5 mmol/L (3.5-5.1) 08/05/18 06:44 Chloride 106 mmol/L (98-107) 08/05/18 06:44 Carbon Dioxide 25.4 mmol/L (21.0-32.0) 08/05/18 06:44 Anion Gap 6.6 mmol/L (3-11) 08/05/18 06:44 BUN 27 mg/dL (7-18) H D 08/05/18 06:44 Creatinine 1.32 mg/dL (0.55-1.02) H 08/05/18 06:44 Estimated GFR/1.73 m2 39.67 (mL/min/1.73m2) 08/05/18 06:44 Glucose 101 mg/dL (70-100) H 08/05/18 06:44 Calcium 8.3 mg/dL (8.5-10.1) L 08/05/18 06:44 Magnesium 1.4 mg/dL (1.8-2.4) L 08/03/18 07:00 Albumin 2.1 g/dL (3.4-5.0) L 08/04/18 07:01 25-OH Vitamin D Total 32.6 ng/ml (30-100) 08/04/18 07:01 TSH 4.09 uIU/mL (0.358-3.74) H 08/03/18 07:00 Free T4 1.15 ng/dL (0.76-1.46) 08/03/18 07:00 Patient ABO/Rh A Positive 08/03/18 07:00 Antibody Screen Negative 08/03/18 07:00 Crossmatch See Detail 08/05/18 08:48
[2018-08-05] MEDS: Melatonin 3 MG TAB 6 MG PO (21:34)
[2018-08-05] MEDS: Simvastatin 10 MG TAB PO (21:34)
[2018-08-06 00:06] VITALS: BP 139/71; PULSE 91; RESP 17; TEMP 36.7; O2SAT 95
--- NOTE | 2018-08-06 01:04 | NUR.NOTE ---
Nursing Note: During HS med pass, Nystatin powder was scanned and about to apply to patient. She was upset because I scanned and stated that she will not use it for now and thinks that she will be charge for that. The quality analyst/technical writer explained that scanning does not mean for charging but application that ordered but pt has poor understanding and refused the powder. Will continue to motivate.
[2018-08-06] MEDS: Levothyroxine 75 MCG TAB PO (04:53)
[2018-08-06] MEDS: Ibuprofen 600 MG TAB PO ×3 (04:53→21:24)
[2018-08-06 07:40] VITALS: BP 154/79; PULSE 83; RESP 16; TEMP 36.3; O2SAT 95
[2018-08-06] MEDS: Gabapentin 100 MG CAP PO ×3 (07:54→19:57)
[2018-08-06] MEDS: Lisinopril 20 MG TAB 40 MG PO (07:54)
[2018-08-06] MEDS: Citalopram 20 MG TAB 40 MG PO (07:54)
[2018-08-06] MEDS: amLODIPine 5 MG TAB PO (07:54)
[2018-08-06] MEDS: Enoxaparin 40 MG/0.4 ML SYR SC (07:54)
[2018-08-06 09:15] LABS: Abs Immature Grans 0.03 k/cumm (0.0-0.09); Absolute Basophil Count 0.02 k/cumm (0.0-0.2); Absolute Eosinophil Count 0.26 k/cumm (0.0-0.7); Absolute Lymphocyte Count 1.22 k/cumm (1.2-3.4); Absolute Monocyte Count 0.83 k/cumm (0.11-0.7); Absolute Neutrophil Count 5.73 k/cumm (1.2-6.7); Basophils % 0.2; Eosinophils % 3.2; HCT 30.7 % (36.0-46.0); Immature Grans % 0.4; Lymphocytes % 15.1; Mean Corp. HGB Concentration 32.6 g/dL (32.0-36.0); Mean Corpuscular Hemoglobin 30.2 pg (27.0-33.0); Mean Corpuscular Volume 92.7 fL (80-95); Mean Platelet Volume 9.8 fL (8.0-11.0); Monocytes % 10.3; Neutrophils % 70.8; Platelet Count 312 x1000/uL (130-400); RBC 3.31 m/cumm (4.00-5.20); RBC Distribution Width 16.9 % (11.7-14.6); White Blood Cell Count 8.09 k/cumm (4.4-10.8)
[2018-08-06 09:24] LABS: Anion Gap 10.9 mmol/L (3-11); BUN 30 mg/dL (7-18); CO2 24.1 mmol/L (21.0-32.0); CREATININE 0.94 mg/dL (0.55-1.02); Calcium 9.7 mg/dL (8.5-10.1); Chloride 108 mmol/L (98-107); Glucose 112 mg/dL (70-100); Magnesium 1.7 mg/dL (1.8-2.4); Potassium 4.5 mmol/L (3.5-5.1); Sodium 143 mmol/L (136-145)
[2018-08-06] MEDS: Magnesium Oxide 400 MG TAB 800 MG PO (10:21)
[2018-08-06 11:40] VITALS: BP 135/78; PULSE 89; RESP 18; TEMP 36.8; O2SAT 95
[2018-08-06] MEDS: Nystatin POWDER 60 GM JAR TP (13:28)
[2018-08-06] MEDS: Polyethylene Glycol 3350 17 GM PACKET PO (13:32)
--- NOTE | 2018-08-06 15:09 | CHAPLAIN ---
Gilma was in bed watching tv when I visited. She easily engaged in conversation, but I wasn't sure she wanted it to continue for long. She shared some personal information, telling me that she lives alone and any relatives live at a distance. Gilma is letting her house go to the [email or web address] and not sure about where she will live next but is trying to coordinate moving out of her house, moving her belongings, and finding another place to live and unpacking. She spent some time at [place] and moved to [place] from [place]. She has been passing the time by reading historical/political non-fiction.
[2018-08-06 15:52] VITALS: BP 130/77; PULSE 83; RESP 18; TEMP 37; O2SAT 96
--- NOTE | 2018-08-06 15:52 | PT.INTREAT ---
Date of service: 08/06/18 Time of Service: 15:52 PT Notes 08/06/18 SUBJECTIVE: Gilma noting fatigue in AM hours and unsure how she will move. She also complains of right thigh pain in the AM which is limiting her mobility. In the PM she notes having more energy and less discomfort. OBJECTIVE: Pt seen for two sessions of PT. TRANSFERS supine to sit: Mod A in AM, SBA in PM Sit to stand: Mod A x 1 in AM, min A x 2 in PM Stand to sit: Min A GAIT Device: FWW Weight bearing: WBAT Assist: Mod A x 2 in AM, Min A x 2 in PM Distance: 5'x2 in AM, 10' in PM Deviation: Significantly forward flexed, walker management THEREX: Light LE strengthening and AROM performed as noted on flow sheet. ASSESSMENT: Pt was quite fatigued this morning in the presence of pain through the right LE which really limited her mobility and required more assistance. She improved in the PM with better walker management and less assist required. Pt will benefit from continued PT for gait training and strengthening. PLAN: Continue current POC progressing towards established goals. Session #1: 10:30-11:00 [id number], [id number] Session #2: 2:35-2:55 [id number] Aisha Gaytan PTA
--- NOTE | 2018-08-06 15:54 | W.PM.PROGNOT ---
Date of Service Date of service: 08/06/18 Time of Service: 15:55 Assessment and Plan (1) Closed right femoral fracture: Current visit: Yes Status: Acute Evidence of a displaced right sided midshaft femoral fracture, s/p surgical repair on 08/03. Pain appears controlled. Of note, in review of Dr. Best's note the patient appears to have had prior history of bisphosphonate use (took 'something once a week for bones'), and her current appearance and location of the fracture may suggest atypical features suggestive of fracture associated with bisphosphonate use. Vitamin D level checked and pending. Corrected Calcium is normal. PT consult placed. Continue pain control. Monitor H/H carefully. Will likely require SNF level care at discharge. Qualifiers: Encounter type: initial encounter Femur location: shaft Fracture morphology: transverse Fracture alignment: displaced Fracture healing: Qualified Code(s): S72.321A - Displaced transverse fracture of shaft of right femur, initial encounter for closed fracture (2) Anemia: Current visit: Yes Status: Chronic Normocytic, with some degree of anemia in the past, and expected post-op blood loss anemia following. However evidence of further drop yesterday, with concurrent worsening creatinine as well as fatigue - responded well to 1 unit of PRBCs. Will repeat H/H in the morning. (3) History of alcohol abuse: Current visit: Yes Status: Acute Reports sobriety for 7 months. No need for CIWA at this time. (4) Lumbar back pain with radiculopathy affecting right lower extremity: Current visit: No Status: Chronic Continue Gabapentin. Currently with Amitryptilline on hold as potential contributing factor to patient's chronic imbalance. (5) Heart murmur: Current visit: No Status: Chronic Potential MR based on admitting attending's bedside ECHO. Will recommend official ECHO, either here or as an outpatient. (6) Hypothyroidism (acquired): Current visit: No Status: Chronic Continue replacement therapy. (7) DVT prophylaxis: Current visit: Yes Status: Acute SC Lovenox as initiated by Ortho. (8) Discharge planning issues: Current visit: Yes Status: Acute Plan on Swing Status tomorrow while awaiting placement. Subjective Interval history since last seen: 73 year old woman with a prior history significant for chronic imbalance, admitted from [facility] Emergency Department following a mechanical fall with subsequent right sided femoral fracture. Mrs. Perez has a past medical history significant for HTN, dyslipidemia, hypothyroidism, and depression. There is noted chronic LBP with radiculopathy involving the RLE. She reports an approximate 2-year history of chronic imbalance and gait unsteadiness. On the night of her admission she sustained a fall while in the kitchen. She took a step away from the counter and lost her balance and fell onto her right side fracturing her right mid femur. She was on the floor for approximately 3 hours prior to discovery by a friend. Patient lives in [place] and was sent to the ED at [facility] but due to lack of orthopedic coverage the patient was transferred to [facility] and accepted by Dr. Robert Best. Mrs. Perez underwent a successful surgical repair on 08/03. She's had expected post-op anemia, slightly worse on the morning of 08/05, with mildly elevation in creatinine as well as subjective fatigue. She has responded well to transfusion with one unit of PRBCs. No overnight events reported. Remains afebrile. Exam Narrative Exam Narrative: General: Patient appears comfortable, AAOX3, NAD. Pale. Neck: Supple CV: Regular, nontachycardic, S1S2, No rubs, murmurs, or gallops. Pulmonary: Clear to auscultation bilaterally, no crackles, wheezing, or rhonchi on limited anterior and lateral exam Abdomen: + Bowel Sounds, soft, nontender, nondistended Vascular: No lower extremity edema Psych: Normal mood and affect. Objective Objective Clinical Data: Abnormal lab results 08/06/18 08/06/18 Range/Units 09:10 09:10 RBC 3.31 L (4.00-5.20) m/cumm Hgb 10.0 L D (12.0-15.5) g/dL Hct 30.7 L D (36.0-46.0) % RDW 16.9 H (11.7-14.6) % Absolute Monocytes 0.83 H (0.11-0.7) k/cumm Chloride 108 H (98-107) mmol/L BUN 30 H (7-18) mg/dL Glucose 112 H (70-100) mg/dL Magnesium 1.7 L (1.8-2.4) mg/dL Vital Signs Temperature 37.0 C 08/06/18 15:52 Temperature Source Tympanic 02/26/19 15:52 Pulse 83 08/06/18 15:52 Pulse Rhythm Regular 08/06/18 08:49 Respiratory Rate 18 08/06/18 15:52 Respiratory Effort 08/06/18 08:49 Respiratory Depth Normal 08/06/18 08:49 Respiratory Pattern Normal 08/06/18 08:49 Blood Pressure 130/77 08/06/18 15:52 Pulse Oximetry 96 08/06/18 15:52 Respiratory End-tidal CO2 36 08/03/18 11:57 Oxygen Delivery Method Room Air 08/06/18 15:52 Oxygen Flow Rate 0 08/06/18 15:52 Pain Level 3 08/06/18 13:44 Comment 08/03/18 12:30 Intake & Output 08/05/18 08/06/18 08/06/18 23:59 11:59 23:59 Intake Total 1360 / 2270 930 / 1170 240 / 1170 Output Total 850 / 1550 Balance 510 / 720 930 / 1170 240 / 1170 Intake: IV 450 / 450 Oral 610 / 1520 930 / 1170 240 / 1170 Blood Product 280 / 280 Rbc Leuko Reduced Unit 280 / 280 [id number] Other 20 / 20 Rbc Leuko Reduced Unit 20 / 20 [id number] Output: Urine 850 / 1550 Other: Urine Color Straw Urine Appearance Clear Clear Stool Size Small Moderate Stool Characteristics Soft Soft Brown Formed Brown Laboratory Results WBC 8.09 k/cumm (4.4-10.8) 08/06/18 09:10 RBC 3.31 m/cumm (4.00-5.20) L 08/06/18 09:10 Hgb 10.0 g/dL (12.0-15.5) L D 08/06/18 09:10 Hct 30.7 % (36.0-46.0) L D 08/06/18 09:10 MCV 92.7 fL (80-95) 08/06/18 09:10 MCH 30.2 pg (27.0-33.0) 08/06/18 09:10 MCHC 32.6 g/dL (32.0-36.0) 08/06/18 09:10 RDW 16.9 % (11.7-14.6) H 08/06/18 09:10 Plt Count 312 x1000/uL (130-400) 08/06/18 09:10 MPV 9.8 fL (8.0-11.0) 08/06/18 09:10 Immature Gran % 0.4 08/06/18 09:10 Neutrophils % 70.8 08/06/18 09:10 Lymphocytes % 15.1 08/06/18 09:10 Monocytes % 10.3 08/06/18 09:10 Eosinophils % 3.2 08/06/18 09:10 Basophils % 0.2 08/06/18 09:10 Absolute Neutrophils 5.73 k/cumm (1.2-6.7) 08/06/18 09:10 Absolute Lymphocytes 1.22 k/cumm (1.2-3.4) 08/06/18 09:10 Absolute Monocytes 0.83 k/cumm (0.11-0.7) H 08/06/18 09:10 Absolute Eosinophils 0.26 k/cumm (0.0-0.7) 08/06/18 09:10 Absolute Basophils 0.02 k/cumm (0.0-0.2) 08/06/18 09:10 Sodium 143 mmol/L (136-145) 08/06/18 09:10 Potassium 4.5 mmol/L (3.5-5.1) 08/06/18 09:10 Chloride 108 mmol/L (98-107) H 08/06/18 09:10 Carbon Dioxide 24.1 mmol/L (21.0-32.0) 08/06/18 09:10 Anion Gap 10.9 mmol/L (3-11) 08/06/18 09:10 BUN 30 mg/dL (7-18) H 08/06/18 09:10 Creatinine 0.94 mg/dL (0.55-1.02) 08/06/18 09:10 Estimated GFR/1.73 m2 58.70 (mL/min/1.73m2) 08/06/18 09:10 Glucose 112 mg/dL (70-100) H 08/06/18 09:10 Calcium 9.7 mg/dL (8.5-10.1) 08/06/18 09:10 Magnesium 1.7 mg/dL (1.8-2.4) L 08/06/18 09:10 Albumin 2.1 g/dL (3.4-5.0) L 08/04/18 07:01 25-OH Vitamin D Total 32.6 ng/ml (30-100) 08/04/18 07:01 TSH 4.09 uIU/mL (0.358-3.74) H 08/03/18 07:00 Free T4 1.15 ng/dL (0.76-1.46) 08/03/18 07:00 Patient ABO/Rh A Positive 08/03/18 07:00 Antibody Screen Negative 08/03/18 07:00 Crossmatch See Detail 08/05/18 08:48
--- NOTE | 2018-08-06 15:57 | PTTR_ITS ---
Date of service: 08/06/18 Time of Service: 15:52 PT Notes 08/06/18 SUBJECTIVE: Gilma noting fatigue in AM hours and unsure how she will move. She also complains of right thigh pain in the AM which is limiting her mobility. In the PM she notes having more energy and less discomfort. OBJECTIVE: Pt seen for two sessions of PT. TRANSFERS supine to sit: Mod A in AM, SBA in PM Sit to stand: Mod A x 1 in AM, min A x 2 in PM Stand to sit: Min A GAIT Device: FWW Weight bearing: WBAT Assist: Mod A x 2 in AM, Min A x 2 in PM Distance: 5'x2 in AM, 10' in PM Deviation: Significantly forward flexed, walker management THEREX: Light LE strengthening and AROM performed as noted on flow sheet. ASSESSMENT: Pt was quite fatigued this morning in the presence of pain through the right LE which really limited her mobility and required more assistance. She improved in the PM with better walker management and less assist required. Pt will benefit from continued PT for gait training and strengthening. PLAN: Continue current POC progressing towards established goals. Session #1: 10:30-11:00 [id number], [id number] Session #2: 2:35-2:55 [id number] Aisha Gaytan PTA
--- NOTE | 2018-08-06 16:00 | PGE_ITS ---
Date of Service Date of service: 08/06/18 Time of Service: 15:55 Assessment and Plan (1) Closed right femoral fracture: Current visit: Yes Status: Acute Evidence of a displaced right sided midshaft femoral fracture, s/p surgical repair on 08/03. Pain appears controlled. Of note, in review of Dr. Best's note the patient appears to have had prior history of bisphosphonate use (took 'something once a week for bones'), and her current appearance and location of the fracture may suggest atypical features suggestive of fracture associated with bisphosphonate use. Vitamin D level checked and pending. Corrected Calcium is normal. PT consult placed. Continue pain control. Monitor H/H carefully. Will likely require SNF level care at discharge. Qualifiers: Encounter type: initial encounter Femur location: shaft Fracture morphology: transverse Fracture alignment: displaced Fracture healing: Qualified Code(s): S72.321A - Displaced transverse fracture of shaft of right femur, initial encounter for closed fracture (2) Anemia: Current visit: Yes Status: Chronic Normocytic, with some degree of anemia in the past, and expected post-op blood loss anemia following. However evidence of further drop yesterday, with concurrent worsening creatinine as well as fatigue - responded well to 1 unit of PRBCs. Will repeat H/H in the morning. (3) History of alcohol abuse: Current visit: Yes Status: Acute Reports sobriety for 7 months. No need for CIWA at this time. (4) Lumbar back pain with radiculopathy affecting right lower extremity: Current visit: No Status: Chronic Continue Gabapentin. Currently with Amitryptilline on hold as potential contributing factor to patient's chronic imbalance. (5) Heart murmur: Current visit: No Status: Chronic Potential MR based on admitting attending's bedside ECHO. Will recommend official ECHO, either here or as an outpatient. (6) Hypothyroidism (acquired): Current visit: No Status: Chronic Continue replacement therapy. (7) DVT prophylaxis: Current visit: Yes Status: Acute SC Lovenox as initiated by Ortho. (8) Discharge planning issues: Current visit: Yes Status: Acute Plan on Swing Status tomorrow while awaiting placement. Subjective Interval history since last seen: 73 year old woman with a prior history significant for chronic imbalance, admitted from [facility] Emergency Department following a mechanical fall with subsequent right sided femoral fracture. Mrs. Perez has a past medical history significant for HTN, dyslipidemia, hypothyroidism, and depression. There is noted chronic LBP with radiculopathy involving the RLE. She reports an approximate 2-year history of chronic imbalance and gait unsteadiness. On the night of her admission she sustained a fall while in the kitchen. She took a step away from the counter and lost her balance and fell onto her right side fracturing her right mid femur. She was on the floor for approximately 3 hours prior to discovery by a friend. Patient lives in [place] and was sent to the ED at [facility] but due to lack of orthopedic coverage the patient was transferred to [facility] and accepted by Dr. Robert Best. Mrs. Perez underwent a successful surgical repair on 08/03. She's had expected post-op anemia, slightly worse on the morning of 08/05, with mildly elevation in creatinine as well as subjective fatigue. She has responded well to transfusion with one unit of PRBCs. No overnight events reported. Remains afebrile. Exam Narrative Exam Narrative: General: Patient appears comfortable, AAOX3, NAD. Pale. Neck: Supple CV: Regular, nontachycardic, S1S2, No rubs, murmurs, or gallops. Pulmonary: Clear to auscultation bilaterally, no crackles, wheezing, or rhonchi on limited anterior and lateral exam Abdomen: + Bowel Sounds, soft, nontender, nondistended Vascular: No lower extremity edema Psych: Normal mood and affect. Objective Objective Clinical Data: Abnormal lab results 08/06/18 08/06/18 Range/Units 09:10 09:10 RBC 3.31 L (4.00-5.20) m/cumm Hgb 10.0 L D (12.0-15.5) g/dL Hct 30.7 L D (36.0-46.0) % RDW 16.9 H (11.7-14.6) % Absolute Monocytes 0.83 H (0.11-0.7) k/cumm Chloride 108 H (98-107) mmol/L BUN 30 H (7-18) mg/dL Glucose 112 H (70-100) mg/dL Magnesium 1.7 L (1.8-2.4) mg/dL Vital Signs Temperature 37.0 C 08/06/18 15:52 Temperature Source Tympanic 02/26/19 15:52 Pulse 83 08/06/18 15:52 Pulse Rhythm Regular 08/06/18 08:49 Respiratory Rate 18 08/06/18 15:52 Respiratory Effort 08/06/18 08:49 Respiratory Depth Normal 08/06/18 08:49 Respiratory Pattern Normal 08/06/18 08:49 Blood Pressure 130/77 08/06/18 15:52 Pulse Oximetry 96 08/06/18 15:52 Respiratory End-tidal CO2 36 08/03/18 11:57 Oxygen Delivery Method Room Air 08/06/18 15:52 Oxygen Flow Rate 0 08/06/18 15:52 Pain Level 3 08/06/18 13:44 Comment 08/03/18 12:30 Intake & Output 08/05/18 08/06/18 08/06/18 23:59 11:59 23:59 Intake Total 1360 / 2270 930 / 1170 240 / 1170 Output Total 850 / 1550 Balance 510 / 720 930 / 1170 240 / 1170 Intake: IV 450 / 450 Oral 610 / 1520 930 / 1170 240 / 1170 Blood Product 280 / 280 Rbc Leuko Reduced Unit 280 / 280 [id number] Other 20 / 20 Rbc Leuko Reduced Unit 20 / 20 [id number] Output: Urine 850 / 1550 Other: Urine Color Straw Urine Appearance Clear Clear Stool Size Small Moderate Stool Characteristics Soft Soft Brown Formed Brown Laboratory Results WBC 8.09 k/cumm (4.4-10.8) 08/06/18 09:10 RBC 3.31 m/cumm (4.00-5.20) L 08/06/18 09:10 Hgb 10.0 g/dL (12.0-15.5) L D 08/06/18 09:10 Hct 30.7 % (36.0-46.0) L D 08/06/18 09:10 MCV 92.7 fL (80-95) 08/06/18 09:10 MCH 30.2 pg (27.0-33.0) 08/06/18 09:10 MCHC 32.6 g/dL (32.0-36.0) 08/06/18 09:10 RDW 16.9 % (11.7-14.6) H 08/06/18 09:10 Plt Count 312 x1000/uL (130-400) 08/06/18 09:10 MPV 9.8 fL (8.0-11.0) 08/06/18 09:10 Immature Gran % 0.4 08/06/18 09:10 Neutrophils % 70.8 08/06/18 09:10 Lymphocytes % 15.1 08/06/18 09:10 Monocytes % 10.3 08/06/18 09:10 Eosinophils % 3.2 08/06/18 09:10 Basophils % 0.2 08/06/18 09:10 Absolute Neutrophils 5.73 k/cumm (1.2-6.7) 08/06/18 09:10 Absolute Lymphocytes 1.22 k/cumm (1.2-3.4) 08/06/18 09:10 Absolute Monocytes 0.83 k/cumm (0.11-0.7) H 08/06/18 09:10 Absolute Eosinophils 0.26 k/cumm (0.0-0.7) 08/06/18 09:10 Absolute Basophils 0.02 k/cumm (0.0-0.2) 08/06/18 09:10 Sodium 143 mmol/L (136-145) 08/06/18 09:10 Potassium 4.5 mmol/L (3.5-5.1) 08/06/18 09:10 Chloride 108 mmol/L (98-107) H 08/06/18 09:10 Carbon Dioxide 24.1 mmol/L (21.0-32.0) 08/06/18 09:10 Anion Gap 10.9 mmol/L (3-11) 08/06/18 09:10 BUN 30 mg/dL (7-18) H 08/06/18 09:10 Creatinine 0.94 mg/dL (0.55-1.02) 08/06/18 09:10 Estimated GFR/1.73 m2 58.70 (mL/min/1.73m2) 08/06/18 09:10 Glucose 112 mg/dL (70-100) H 08/06/18 09:10 Calcium 9.7 mg/dL (8.5-10.1) 08/06/18 09:10 Magnesium 1.7 mg/dL (1.8-2.4) L 08/06/18 09:10 Albumin 2.1 g/dL (3.4-5.0) L 08/04/18 07:01 25-OH Vitamin D Total 32.6 ng/ml (30-100) 08/04/18 07:01 TSH 4.09 uIU/mL (0.358-3.74) H 08/03/18 07:00 Free T4 1.15 ng/dL (0.76-1.46) 08/03/18 07:00 Patient ABO/Rh A Positive 08/03/18 07:00 Antibody Screen Negative 08/03/18 07:00 Crossmatch See Detail 08/05/18 08:48
--- NOTE | 2018-08-06 19:41 | CMPROGNOTE_ITS ---
Care Management Progress Note S/O: CM reviewed patient with Oliva of the [facility] and [facility] of [facility]; both report outstanding debt which would need to be attended to prior to considering Gilma for admission. CM spoke with [facility] who reported no bed availability at this time. CM will continue to follow. A: Gilma is a 73 year old female admitted with a femur fracture repaired on 08/03/18. P: Gilma will need short term rehab vs home with home health; PT reports Gilma will require short rehab stay prior to returning home. Due to complexities with placement it is likely Gilma may require SWB1 at [facility] prior to placement or discharge home; CM will continue to seek SNF placement and support discharge planning considerations.
[2018-08-06 19:59] VITALS: BP 145/70; PULSE 90; RESP 18; TEMP 36.7; O2SAT 97
[2018-08-06] MEDS: Simvastatin 10 MG TAB PO (21:24)
[2018-08-06] MEDS: Melatonin 3 MG TAB 6 MG PO (21:25)
--- NOTE | 2018-08-06 22:14 | PGE_ITS ---
Date of Service Date of service: 08/06/18 Time of Service: 22:11 Assessment and Plan (1) Closed right femoral fracture: Current visit: Yes Status: Acute Gilma is 3 days status post intramedullary nail fixation of a right femur fracture. She is making decent progress. She did receive a transfusion. She has been up with physical therapy. I encouraged her to continue working on amb ulation to, weightbearing, and mobility. She should continue anticoagulation for at least 2 weeks, pending her mobility. Qualifiers: Encounter type: initial encounter Femur location: shaft Fracture morphology: transverse Fracture alignment: displaced Fracture healing: Qualified Code(s): S72.321A - Displaced transverse fracture of shaft of right femur, initial encounter for closed fracture Subjective Interval history since last seen: Gilma reports no significant issues. She does have some pain when she moves but is manageable. No pain at all at rest. She has been able to stand and ambulate a few steps. She did receive a blood transfusion yesterday. No chest pain or shortness of breath. No fevers or chills. Exam Narrative Exam Narrative: Evaluation of the right leg shows clean dry and intact dressings. The thigh is swollen but easily compressible. Minimal pain to palpation. No pain with gentle internal and external rotation of the leg. Objective Objective Clinical Data: Abnormal lab results 08/03/18 08/05/18 08/05/18 Range/Units 07:00 06:44 06:44 RBC 2.61 L (4.00-5.20) m/cumm Hgb 7.8 L (12.0-15.5) g/dL Hct 25.2 L (36.0-46.0) % MCV 96.6 H (80-95) fL MCHC 31.0 L (32.0-36.0) g/dL RDW 15.6 H (11.7-14.6) % BUN 27 H D (7-18) mg/dL Creatinine 1.32 H (0.55-1.02) mg/dL Glucose 101 H (70-100) mg/dL Calcium 8.3 L (8.5-10.1) mg/dL Crossmatch See Detail 08/05/18 Range/Units 08:48 RBC (4.00-5.20) m/cumm Hgb (12.0-15.5) g/dL Hct (36.0-46.0) % MCV (80-95) fL MCHC (32.0-36.0) g/dL RDW (11.7-14.6) % BUN (7-18) mg/dL Creatinine (0.55-1.02) mg/dL Glucose (70-100) mg/dL Calcium (8.5-10.1) mg/dL Crossmatch See Detail Vital Signs Temperature 36.7 C 08/06/18 00:06 Temperature Source Skin 08/06/18 00:06 Pulse 91 H 08/06/18 00:06 Pulse Rhythm Regular 08/05/18 22:13 Respiratory Rate 17 08/06/18 00:06 Respiratory Effort 08/05/18 22:13 Respiratory Depth Normal 08/05/18 22:13 Respiratory Pattern Normal 08/05/18 22:13 Blood Pressure 139/71 08/06/18 00:06 Pulse Oximetry 95 08/06/18 00:06 Respiratory End-tidal CO2 36 08/03/18 11:57 Oxygen Delivery Method Room Air 08/06/18 00:06 Oxygen Flow Rate 0 08/06/18 00:06 Pain Level 0 08/06/18 04:53 Comment 08/03/18 12:30 Intake & Output 08/05/18 08/05/18 08/06/18 11:59 23:59 11:59 Intake Total 910 / 2270 1360 / 2270 450 / 450 Output Total 700 / 1550 850 / 1550 Balance 210 / 720 510 / 720 450 / 450 Weight 62.4 kg Intake: IV 450 / 450 Oral 910 / 1520 610 / 1520 450 / 450 Blood Product 280 / 280 Rbc Leuko Reduced Unit 280 / 280 [id number] Other 20 / 20 Rbc Leuko Reduced Unit / 20 [id number] Output: Urine 700 / 1550 850 / 1550 Other: Urine Color Yellow Straw Urine Appearance Clear Clear Laboratory Results WBC 6.84 k/cumm (4.4-10.8) 08/05/18 06:44 RBC 2.61 m/cumm (4.00-5.20) L 08/05/18 06:44 Hgb 7.8 g/dL (12.0-15.5) L 08/05/18 06:44 Hct 25.2 % (36.0-46.0) L 08/05/18 06:44 MCV 96.6 fL (80-95) H 08/05/18 06:44 MCH 29.9 pg (27.0-33.0) 08/05/18 06:44 MCHC 31.0 g/dL (32.0-36.0) L 08/05/18 06:44 RDW 15.6 % (11.7-14.6) H 08/05/18 06:44 Plt Count 234 x1000/uL (130-400) 08/05/18 06:44 MPV 10.3 fL (8.0-11.0) 08/05/18 06:44 Immature Gran % 0.2 08/04/18 07:01 Neutrophils % 55.8 08/04/18 07:01 Lymphocytes % 24.6 08/04/18 07:01 Monocytes % 15.9 08/04/18 07:01 Eosinophils % 3.3 08/04/18 07:01 Basophils % 0.2 08/04/18 07:01 Absolute Neutrophils 3.61 k/cumm (1.2-6.7) 08/04/18 07:01 Absolute Lymphocytes 1.59 k/cumm (1.2-3.4) 08/04/18 07:01 Absolute Monocytes 1.03 k/cumm (0.11-0.7) H 08/04/18 07:01 Absolute Eosinophils 0.21 k/cumm (0.0-0.7) 08/04/18 07:01 Absolute Basophils 0.01 k/cumm (0.0-0.2) 08/04/18 07:01 Sodium 138 mmol/L (136-145) 08/05/18 06:44 Potassium 4.5 mmol/L (3.5-5.1) 08/05/18 06:44 Chloride 106 mmol/L (98-107) 08/05/18 06:44 Carbon Dioxide 25.4 mmol/L (21.0-32.0) 08/05/18 06:44 Anion Gap 6.6 mmol/L (3-11) 08/05/18 06:44 BUN 27 mg/dL (7-18) H D 08/05/18 06:44 Creatinine 1.32 mg/dL (0.55-1.02) H 08/05/18 06:44 Estimated GFR/1.73 m2 39.67 (mL/min/1.73m2) 08/05/18 06:44 Glucose 101 mg/dL (70-100) H 08/05/18 06:44 Calcium 8.3 mg/dL (8.5-10.1) L 08/05/18 06:44 Magnesium 1.4 mg/dL (1.8-2.4) L 08/03/18 07:00 Albumin 2.1 g/dL (3.4-5.0) L 08/04/18 07:01 25-OH Vitamin D Total 32.6 ng/ml (30-100) 08/04/18 07:01 TSH 4.09 uIU/mL (0.358-3.74) H 08/03/18 07:00 Free T4 1.15 ng/dL (0.76-1.46) 08/03/18 07:00 Patient ABO/Rh A Positive 08/03/18 07:00 Antibody Screen Negative 08/03/18 07:00 Crossmatch See Detail 08/05/18 08:48
[2018-08-07] VITALS (7 sets, daily range): BP systolic 146–171; BP diastolic 76–90; PULSE 77–92; RESP 17–18; TEMP 36.9–37.2; O2SAT 95–97
[2018-08-07] MEDS: Ibuprofen 600 MG TAB PO ×3 (05:22→19:53)
[2018-08-07] MEDS: Levothyroxine 75 MCG TAB PO (05:22)
[2018-08-07 07:30] LABS: HCT 29.3 % (36.0-46.0); HGB 9.6 g/dL (12.0-15.5)
[2018-08-07] MEDS: Citalopram 20 MG TAB 40 MG PO (09:14)
[2018-08-07] MEDS: Gabapentin 100 MG CAP PO ×3 (09:14→19:53)
[2018-08-07] MEDS: amLODIPine 5 MG TAB PO (09:14)
[2018-08-07] MEDS: Enoxaparin 40 MG/0.4 ML SYR SC (09:15)
[2018-08-07] MEDS: Lisinopril 20 MG TAB 40 MG PO (09:15)
[2018-08-07] MEDS: Docusate Sodium 100 MG CAP PO (09:31)
[2018-08-07] MEDS: Polyethylene Glycol 3350 17 GM PACKET PO (09:31)
[2018-08-07] MEDS: Nystatin POWDER 60 GM JAR TP ×2 (09:34→19:53)
--- NOTE | 2018-08-07 10:23 | PDOC.CMPRO ---
- If Service Date Differs Date of service: 08/07/18 Time of Service: 10:23 Care Management Progress Note S/O: Gilma will transition to [facility] on 08/08/18. CM provided education SB1 contract patient is agreeable and completed contract. A: Gilma is a 73 year old female admitted with a femur fracture repaired on 08/03/18. P: Gilma will need short term rehab vs home with home health; PT reports Gilma will require short rehab stay prior to returning home. Due to complexities with placement it is likely Gilma may require SWB1 at [facility] prior to placement or discharge home; CM will continue to seek SNF placement and support discharge planning considerations. Health and Rehab- Declined Any -Declined [facility] -Declined
--- NOTE | 2018-08-07 10:26 | CMPROGNOTE_ITS ---
- If Service Date Differs Date of service: 08/07/18 Time of Service: 10:23 Care Management Progress Note S/O: Gilma will transition to [facility] on 08/08/18. CM provided education SB1 contract patient is agreeable and completed contract. A: Gilma is a 73 year old female admitted with a femur fracture repaired on 08/03/18. P: Gilma will need short term rehab vs home with home health; PT reports Gilma will require short rehab stay prior to returning home. Due to complexities with placement it is likely Gilma may require SWB1 at [facility] prior to placement or discharge home; CM will continue to seek SNF placement and support discharge planning considerations. Health and Rehab- Declined Any -Declined [facility] -Declined
--- NOTE | 2018-08-07 15:15 | PT.INTREAT ---
Date of service: 08/07/18 Time of Service: 15:15 PT Notes 08/07/18 SUBJECTIVE: Gilma stating she feels pretty good today. She is having minimal discomfort in the right leg. OBJECTIVE: Pt seen for two sessions of PT today. Treatment as below. TRANSFERS Supine to sit: SBA Sit to supine: SBA Sit to stand: CGA Stand to sit: CGA GAIT Device: FWW Weight bearing: WBAT R Assist: Min A in AM progressing to CGA in PM Distance: 10' in AM, 10' in PM Deviations: Cues for gait sequencing Therex: Light LE strengthening and ROM performed bilateral LE's. See flow sheet for specifics. ASSESSMENT: Progressing with her mobility today with less discomfort upon movement. Her posture with her gait is also improved with less forward flexion at the trunk. Pt will benefit from continued strengthening and gait training. PLAN: Continue current POC progressing toward's established goals. Session # 1: 9:40-9:55 ([id number]) Session # 2: 12:45-1:00( [id number]) Aisha Gaytan PTA
--- NOTE | 2018-08-07 15:21 | PTTR_ITS ---
Date of service: 08/07/18 Time of Service: 15:15 PT Notes 08/07/18 SUBJECTIVE: Gilma stating she feels pretty good today. She is having minimal discomfort in the right leg. OBJECTIVE: Pt seen for two sessions of PT today. Treatment as below. TRANSFERS Supine to sit: SBA Sit to supine: SBA Sit to stand: CGA Stand to sit: CGA GAIT Device: FWW Weight bearing: WBAT R Assist: Min A in AM progressing to CGA in PM Distance: 10' in AM, 10' in PM Deviations: Cues for gait sequencing Therex: Light LE strengthening and ROM performed bilateral LE's. See flow sheet for specifics. ASSESSMENT: Progressing with her mobility today with less discomfort upon movement. Her posture with her gait is also improved with less forward flexion at the trunk. Pt will benefit from continued strengthening and gait training. PLAN: Continue current POC progressing toward's established goals. Session # 1: 9:40-9:55 ([id number]) Session # 2: 12:45-1:00( [id number]) Aisha Gaytan PTA
[2018-08-07] MEDS: Acetaminophen 325 MG TAB PO (15:37)
[2018-08-07] MEDS: oxyCODONE 5 MG TAB PO (15:37)
--- NOTE | 2018-08-07 19:19 | W.PM.PROGNOT ---
Date of Service Date of service: 08/07/18 Time of Service: 19:21 Assessment and Plan (1) Closed right femoral fracture: Current visit: Yes Status: Acute Evidence of a displaced right sided midshaft femoral fracture, s/p surgical repair on 08/03. Pain appears controlled. Of note, in review of Dr. Best's note the patient appears to have had prior history of bisphosphonate use (took 'something once a week for bones'), and her current appearance and location of the fracture may suggest atypical features suggestive of fracture associated with bisphosphonate use. Vitamin D level checked and pending. Corrected Calcium is normal. PT consult placed. Continue pain control. Monitor H/H. Will likely require SNF level care at discharge but placement an issue at this time. Will aim for swing bed status tomorrow. Qualifiers: Encounter type: initial encounter Femur location: shaft Fracture morphology: transverse Fracture alignment: displaced Fracture healing: Qualified Code(s): S72.321A - Displaced transverse fracture of shaft of right femur, initial encounter for closed fracture (2) Anemia: Current visit: Yes Status: Chronic Normocytic, with some degree of anemia in the past, and expected post-op blood loss anemia following. However evidence of further drop yesterday, with concurrent worsening creatinine as well as fatigue - responded well to 1 unit of PRBCs, slight drop this am. Will repeat H/H in the morning. (3) History of alcohol abuse: Current visit: Yes Status: Acute Reports sobriety for 7 months. No need for CIWA at this time. (4) Lumbar back pain with radiculopathy affecting right lower extremity: Current visit: No Status: Chronic Continue Gabapentin. Currently with Amitryptilline on hold as potential contributing factor to patient's chronic imbalance. (5) Heart murmur: Current visit: No Status: Chronic Potential MR based on admitting attending's bedside ECHO. Will recommend official ECHO, either here or as an outpatient. (6) Hypothyroidism (acquired): Current visit: No Status: Chronic Continue replacement therapy. (7) DVT prophylaxis: Current visit: Yes Status: Acute SC Lovenox as initiated by Ortho. (8) Discharge planning issues: Current visit: Yes Status: Acute Plan on Swing Status tomorrow while awaiting placement. Subjective Interval history since last seen: 73 year old woman with a prior history significant for chronic imbalance, admitted from [facility] Emergency Department following a mechanical fall with subsequent right sided femoral fracture. Mrs. Perez has a past medical history significant for HTN, dyslipidemia, hypothyroidism, and depression. There is noted chronic LBP with radiculopathy involving the RLE. She reports an approximate 2-year history of chronic imbalance and gait unsteadiness. On the night of her admission she sustained a fall while in the kitchen. She took a step away from the counter and lost her balance and fell onto her right side fracturing her right mid femur. She was on the floor for approximately 3 hours prior to discovery by a friend. Patient lives in [place] and was sent to the ED at [facility] but due to lack of orthopedic coverage the patient was transferred to [facility] and accepted by Dr. Robert Best. Mrs. Perez underwent a successful surgical repair on 08/03. She's had expected post-op anemia, slightly worse on the morning of 08/05, with mildly elevation in creatinine as well as subjective fatigue. She has responded well to transfusion with one unit of PRBCs, with return of her kidney function to normal. No overnight events reported. Remains afebrile. Exam Narrative Exam Narrative: General: Patient appears comfortable, AAOX3, NAD. Pale. Psych: Normal mood and affect. Objective Objective Clinical Data: Abnormal lab results 08/07/18 Range/Units 06:15 Hgb 9.6 L (12.0-15.5) g/dL Hct 29.3 L (36.0-46.0) % Vital Signs Temperature 37.2 C 08/07/18 16:36 Temperature Source Tympanic 08/07/18 16:36 Pulse 86 08/07/18 16:36 Pulse Rhythm Regular 08/07/18 15:40 Respiratory Rate 18 08/07/18 16:36 Respiratory Effort Non-Labored 08/07/18 15:40 Respiratory Depth Normal 08/07/18 15:40 Respiratory Pattern Normal 08/07/18 15:40 Blood Pressure 171/83 H 08/07/18 16:36 Pulse Oximetry 95 08/07/18 16:36 Respiratory End-tidal CO2 36 08/03/18 11:57 Oxygen Delivery Method Room Air 08/07/18 16:36 Oxygen Flow Rate 0 08/07/18 16:36 Pain Level 4 02/27/19 13:13 Comment 08/03/18 12:30 Intake & Output 08/06/18 08/07/18 08/07/18 23:59 11:59 23:59 Intake Total 480 / 1410 460 / 940 480 / 940 Output Total 1350 / 1350 1500 / 2100 600 / 2100 Balance -870 / 60 -1040 / -1160 -120 / -1160 Intake: IV 460 / 460 Oral 480 / 1410 480 / 480 Output: Urine 1350 / 1350 1500 / 2100 600 / 2100 Other: Urine Color Yellow Yellow Yellow Urine Appearance Clear Clear Clear Stool Size Large Small Stool Characteristics Formed Soft Brown Laboratory Results WBC 8.09 k/cumm (4.4-10.8) 08/06/18 09:10 RBC 3.31 m/cumm (4.00-5.20) L 08/06/18 09:10 Hgb 9.6 g/dL (12.0-15.5) L 08/07/18 06:15 Hct 29.3 % (36.0-46.0) L 08/07/18 06:15 MCV 92.7 fL (80-95) 08/06/18 09:10 MCH 30.2 pg (27.0-33.0) 08/06/18 09:10 MCHC 32.6 g/dL (32.0-36.0) 08/06/18 09:10 RDW 16.9 % (11.7-14.6) H 08/06/18 09:10 Plt Count 312 x1000/uL (130-400) 08/06/18 09:10 MPV 9.8 fL (8.0-11.0) 08/06/18 09:10 Immature Gran % 0.4 08/06/18 09:10 Neutrophils % 70.8 08/06/18 09:10 Lymphocytes % 15.1 08/06/18 09:10 Monocytes % 10.3 08/06/18 09:10 Eosinophils % 3.2 08/06/18 09:10 Basophils % 0.2 08/06/18 09:10 Absolute Neutrophils 5.73 k/cumm (1.2-6.7) 08/06/18 09:10 Absolute Lymphocytes 1.22 k/cumm (1.2-3.4) 08/06/18 09:10 Absolute Monocytes 0.83 k/cumm (0.11-0.7) H 08/06/18 09:10 Absolute Eosinophils 0.26 k/cumm (0.0-0.7) 08/06/18 09:10 Absolute Basophils 0.02 k/cumm (0.0-0.2) 08/06/18 09:10 Sodium 143 mmol/L (136-145) 08/06/18 09:10 Potassium 4.5 mmol/L (3.5-5.1) 08/06/18 09:10 Chloride 108 mmol/L (98-107) H 08/06/18 09:10 Carbon Dioxide 24.1 mmol/L (21.0-32.0) 08/06/18 09:10 Anion Gap 10.9 mmol/L (3-11) 08/06/18 09:10 BUN 30 mg/dL (7-18) H 08/06/18 09:10 Creatinine 0.94 mg/dL (0.55-1.02) 08/06/18 09:10 Estimated GFR/1.73 m2 58.70 (mL/min/1.73m2) 08/06/18 09:10 Glucose 112 mg/dL (70-100) H 08/06/18 09:10 Calcium 9.7 mg/dL (8.5-10.1) 08/06/18 09:10 Magnesium 1.7 mg/dL (1.8-2.4) L 08/06/18 09:10 Albumin 2.1 g/dL (3.4-5.0) L 08/04/18 07:01 25-OH Vitamin D Total 32.6 ng/ml (30-100) 08/04/18 07:01 TSH 4.09 uIU/mL (0.358-3.74) H 08/03/18 07:00 Free T4 1.15 ng/dL (0.76-1.46) 08/03/18 07:00 Patient ABO/Rh A Positive 08/03/18 07:00 Antibody Screen Negative 08/03/18 07:00 Crossmatch See Detail 08/05/18 08:48
--- NOTE | 2018-08-07 19:23 | PGE_ITS ---
Date of Service Date of service: 08/07/18 Time of Service: 19:21 Assessment and Plan (1) Closed right femoral fracture: Current visit: Yes Status: Acute Evidence of a displaced right sided midshaft femoral fracture, s/p surgical repair on 08/03. Pain appears controlled. Of note, in review of Dr. Best's note the patient appears to have had prior history of bisphosphonate use (took 'something once a week for bones'), and her current appearance and location of the fracture may suggest atypical features suggestive of fracture associated with bisphosphonate use. Vitamin D level checked and pending. Corrected Calcium is normal. PT consult placed. Continue pain control. Monitor H/H. Will likely require SNF level care at discharge but placement an issue at this time. Will aim for swing bed status tomorrow. Qualifiers: Encounter type: initial encounter Femur location: shaft Fracture morphology: transverse Fracture alignment: displaced Fracture healing: Qual ified Code(s): S72.321A - Displaced transverse fracture of shaft of right femur, initial encounter for closed fracture (2) Anemia: Current visit: Yes Status: Chronic Normocytic, with some degree of anemia in the past, and expected post-op blood loss anemia following. However evidence of further drop yesterday, with concurrent worsening creatinine as well as fatigue - responded well to 1 unit of PRBCs, slight drop this am. Will repeat H/H in the morning. (3) History of alcohol abuse: Current visit: Yes Status: Acute Reports sobriety for 7 months. No need for CIWA at this time. (4) Lumbar back pain with radiculopathy affecting right lower extremity: Current visit: No Status: Chronic Continue Gabapentin. Currently with Amitryptilline on hold as potential contributing factor to patient's chronic imbalance. (5) Heart murmur: Current visit: No Status: Chronic Potential MR based on admitting attending's bedside ECHO. Will recommend official ECHO, either here or as an outpatient. (6) Hypothyroidism (acquired): Current visit: No Status: Chronic Continue replacement therapy. (7) DVT prophylaxis: Current visit: Yes Status: Acute SC Lovenox as initiated by Ortho. (8) Discharge planning issues: Current visit: Yes Status: Acute Plan on Swing Status tomorrow while awaiting placement. Subjective Interval history since last seen: 73 year old woman with a prior history significant for chronic imbalance, admitted from [facility] Emergency Department following a mechanical fall with subsequent right sided femoral fracture. Mrs. Perez has a past medical history significant for HTN, dyslipidemia, hypothyroidism, and depression. There is noted chronic LBP with radiculopathy involving the RLE. She reports an approximate 2-year history of chronic imbalance and gait unsteadiness. On the night of her admission she sustained a fall while in the kitchen. She took a step away from the counter and lost her balance and fell onto her right side fracturing her right mid femur. She was on the floor for approximately 3 hours prior to discovery by a friend. Patient lives in [place] and was sent to the ED at [facility] but due to lack of orthopedic coverage the patient was transferred to [facility] and accepted by Dr. Robert Best. Mrs. Perez underwent a successful surgical repair on 08/03. She's had expected post-op anemia, slightly worse on the morning of 08/05, with mildly elevation in creatinine as well as subjective fatigue. She has responded well to transfusion with one unit of PRBCs, with return of her kidney function to normal. No overnight events reported. Remains afebrile. Exam Narrative Exam Narrative: General: Patient appears comfortable, AAOX3, NAD. Pale. Psych: Normal mood and affect. Objective Objective Clinical Data: Abnormal lab results 08/07/18 Range/Units 06:15 Hgb 9.6 L (12.0-15.5) g/dL Hct 29.3 L (36.0-46.0) % Vital Signs Temperature 37.2 C 08/07/18 16:36 Temperature Source Tympanic 08/07/18 16:36 Pulse 86 08/07/18 16:36 Pulse Rhythm Regular 08/07/18 15:40 Respiratory Rate 18 08/07/18 16:36 Respiratory Effort Non-Labored 08/07/18 15:40 Respiratory Depth Normal 08/07/18 15:40 Respiratory Pattern Normal 08/07/18 15:40 Blood Pressure 171/83 H 08/07/18 16:36 Pulse Oximetry 95 08/07/18 16:36 Respiratory End-tidal CO2 36 08/03/18 11:57 Oxygen Delivery Method Room Air 08/07/18 16:36 Oxygen Flow Rate 0 08/07/18 16:36 Pain Level 4 08/07/18 13:13 Comment 08/03/18 12:30 Intake & Output 08/06/18 08/07/18 08/07/18 23:59 11:59 23:59 Intake Total 480 / 1410 460 / 940 480 / 940 Output Total 1350 / 1350 1500 / 2100 600 / 2100 Balance -870 / 60 -1040 / -1160 -120 / -1160 Intake: IV 460 / 460 Oral 480 / 1410 480 / 480 Output: Urine 1350 / 1350 1500 / 2100 600 / 2100 Other: Urine Color Yellow Yellow Yellow Urine Appearance Clear Clear Clear Stool Size Large Small Stool Characteristics Formed Soft Brown Laboratory Results WBC 8.09 k/cumm (4.4-10.8) 08/06/18 09:10 RBC 3.31 m/cumm (4.00-5.20) L 08/06/18 09:10 Hgb 9.6 g/dL (12.0-15.5) L 08/07/18 06:15 Hct 29.3 % (36.0-46.0) L 08/07/18 06:15 MCV 92.7 fL (80-95) 08/06/18 09:10 MCH 30.2 pg (27.0-33.0) 08/06/18 09:10 MCHC 32.6 g/dL (32.0-36.0) 08/06/18 09:10 RDW 16.9 % (11.7-14.6) H 08/06/18 09:10 Plt Count 312 x1000/uL (130-400) 08/06/18 09:10 MPV 9.8 fL (8.0-11.0) 08/06/18 09:10 Immature Gran % 0.4 08/06/18 09:10 Neutrophils % 70.8 08/06/18 09:10 Lymphocytes % 15.1 08/06/18 09:10 Monocytes % 10.3 08/06/18 09:10 Eosinophils % 3.2 08/06/18 09:10 Basophils % 0.2 08/06/18 09:10 Absolute Neutrophils 5.73 k/cumm (1.2-6.7) 08/06/18 09:10 Absolute Lymphocytes 1.22 k/cumm (1.2-3.4) 08/06/18 09:10 Absolute Monocytes 0.83 k/cumm (0.11-0.7) H 08/06/18 09:10 Absolute Eosinophils 0.26 k/cumm (0.0-0.7) 08/06/18 09:10 Absolute Basophils 0.02 k/cumm (0.0-0.2) 08/06/18 09:10 Sodium 143 mmol/L (136-145) 08/06/18 09:10 Potassium 4.5 mmol/L (3.5-5.1) 08/06/18 09:10 Chloride 108 mmol/L (98-107) H 08/06/18 09:10 Carbon Dioxide 24.1 mmol/L (21.0-32.0) 08/06/18 09:10 Anion Gap 10.9 mmol/L (3-11) 08/06/18 09:10 BUN 30 mg/dL (7-18) H 08/06/18 09:10 Creatinine 0.94 mg/dL (0.55-1.02) 08/06/18 09:10 Estimated GFR/1.73 m2 58.70 (mL/min/1.73m2) 08/06/18 09:10 Glucose 112 mg/dL (70-100) H 08/06/18 09:10 Calcium 9.7 mg/dL (8.5-10.1) 08/06/18 09:10 Magnesium 1.7 mg/dL (1.8-2.4) L 08/06/18 09:10 Albumin 2.1 g/dL (3.4-5.0) L 08/04/18 07:01 25-OH Vitamin D Total 32.6 ng/ml (30-100) 08/04/18 07:01 TSH 4.09 uIU/mL (0.358-3.74) H 08/03/18 07:00 Free T4 1.15 ng/dL (0.76-1.46) 08/03/18 07:00 Patient ABO/Rh A Positive 08/03/18 07:00 Antibody Screen Negative 08/03/18 07:00 Crossmatch See Detail 08/05/18 08:48
[2018-08-07] MEDS: Simvastatin 10 MG TAB PO (21:14)
[2018-08-07] MEDS: Melatonin 3 MG TAB 6 MG PO (21:15)
[2018-08-08 05:30] VITALS: BP 157/78; PULSE 75; RESP 18; TEMP 36.4; O2SAT 96
[2018-08-08] MEDS: Ibuprofen 600 MG TAB PO ×2 (05:32→12:50)
[2018-08-08] MEDS: Levothyroxine 75 MCG TAB PO (05:32)
[2018-08-08 07:30] VITALS: BP 145/74; PULSE 75; RESP 18; TEMP 36.5; O2SAT 97
[2018-08-08] MEDS: Citalopram 20 MG TAB 40 MG PO (09:10)
[2018-08-08] MEDS: Gabapentin 100 MG CAP PO (09:10)
[2018-08-08] MEDS: amLODIPine 5 MG TAB PO (09:10)
[2018-08-08] MEDS: Omeprazole 20 MG CAPCR PO (09:10)
[2018-08-08] MEDS: oxyCODONE 5 MG TAB PO (09:11)
[2018-08-08] MEDS: Lisinopril 20 MG TAB 40 MG PO (09:11)
[2018-08-08] MEDS: Acetaminophen 325 MG TAB PO (09:11)
[2018-08-08] MEDS: Enoxaparin 40 MG/0.4 ML SYR SC (09:12)
[2018-08-08] MEDS: Nystatin POWDER 60 GM JAR TP (09:12)
[2018-08-08 09:49] LABS: HCT 32.1 % (36.0-46.0); HGB 10.5 g/dL (12.0-15.5)
[2018-08-08 10:20] VITALS: O2SAT 97
--- NOTE | 2018-08-08 10:24 | CMPROGNOTE_ITS ---
- If Service Date Differs Date of service: 08/08/18 Time of Service: 10:24 Care Management Progress Note S/O: Gilma will transition to SB1 today. CM provided education SB1 contract patient is agreeable and completed contract. A: Gilma is a 73 year old female admitted with a femur fracture repaired on 08/03/18. P: Gilma will need short term rehab vs home with home health; PT reports Gilma will require short rehab stay prior to returning home. Due to complexities with placement it is likely Gilma may require SWB1 at [facility] prior to placement or discharge home; CM will continue to seek SNF placement and support discharge planning considerations.
[2018-08-08 11:20] VITALS: BP 153/75; PULSE 94; RESP 18; TEMP 37.2; O2SAT 95
--- NOTE | 2018-08-08 11:20 | PT.INTREAT ---
Date of service: 08/08/18 Time of Service: 09:00 PT Notes 08/08/18 SUBJECTIVE: Gilma is up ambulating on her own at initiation of session. She states that she walked to the bathroom and back (approx 20') and that she got up in the night on her own as well. OBJECTIVE: TRANSFERS Supine to sit: independent Sit to supine: min A Sit to stand: supervision Stand to sit: supervision GAIT Device: FWW Weight bearing: WBAT R Assist: CG Distance: 30' Deviations: Cues for gait sequencing, safety Therex: LE strengthening activities performed bilateral LE's in both seated and supine. See flow sheet for specifics. ASSESSMENT: Tolerating improved gait distances, although with limited safety awareness. Bed alarm was activated at end of session, and patient was strongly encouraged to call for assistance prior to ambulating, as her level of independence has fluctuated significantly between sessions. She verbalizes agreement. PLAN: Continue current POC progressing toward's established goals. Patient will require ongoing rehab prior to return home, either via SNF placement or on level of care. Session # 1: 9:00-9:25 ([id number], [id number]) Navya Zheng, PT, DPT [facility]
--- NOTE | 2018-08-08 11:24 | PTTR_ITS ---
Date of service: 08/08/18 Time of Service: 09:00 PT Notes 08/08/18 SUBJECTIVE: Gilma is up ambulating on her own at initiation of session. She states that she walked to the bathroom and back (approx 20') and that she got up in the night on her own as well. OBJECTIVE: TRANSFERS Supine to sit: independent Sit to supine: min A Sit to stand: supervision Stand to sit: supervision GAIT Device: FWW Weight bearing: WBAT R Assist: CG Distance: 30' Deviations: Cues for gait sequencing, safety Therex: LE strengthening activities performed bilateral LE's in both seated and supine. See flow sheet for specifics. ASSESSMENT: Tolerating improved gait distances, although with limited safety awareness. Bed alarm was activated at end of session, and patient was strongly encouraged to call for assistance prior to ambulating, as her level of independence has fluctuated significantly between sessions. She verbalizes agreement. PLAN: Continue current POC progressing toward's established goals. Patient will require ongoing rehab prior to return home, either via SNF placement or on level of care. Session # 1: 9:00-9:25 ([id number], [id number]) Navya Zheng, PT, DPT [facility]
--- NOTE | 2018-08-08 13:24 | PT.INTREAT ---
Date of service: 08/08/18 Time of Service: 13:24 PT Notes 08/08/18 SUBJECTIVE: Gilma stating 3/10 pain. Overall doing well and moving better than yesterday. OBJECTIVE: Pt supine in bed. Agreeable to PT treatment. TRANSFERS Supine to sit: I Sit to supine: CGA Sit to stand: S Stand to sit: S GAIT Device: FWW Weight bearing: WBAT Assist: CGA Distance: 50' Deviation: Step through pattern THEREX: Light LE strengthening and ROM to the right hip and knee. See flow sheet. ASSESSMENT: Progressing with transfers and gait with pt performing step through gait pattern and good weight bearing through the right LE. Her pain seems to be under control. PLAN: Continue current POC progressing towards established goals. Session # 2: 12:45-1:10([id number]) Aisha Gaytan PTA
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
--- NOTE | 2018-08-08 14:48 | PGE_ITS ---
Date of Service Date of service: 08/08/18 Time of Service: 14:48 Assessment and Plan (1) Closed right femoral fracture: Current visit: No Status: Acute Gilma is making good progress. She is progressing appropriately and is now begun to weight-bear more on the limb and also increase her amatory capacity. This will take quite a few weeks until she is able to regain independent ambul atory status, but she is making good progress. He should continue with physical therapy. I would recommend DVT prophylaxis for 4 weeks. If her amatory status continues to improve she may switch to aspirin 81 mg twice daily at 2 weeks postoperative. I will see her back at 4 weeks postoperatively. Edie to be removed at 2 weeks. Qualifiers: Encounter type: initial encounter Femur location: shaft Fracture morphology: transverse Fracture alignment: displaced Fracture healing: Qualified Code(s): S72.321A - Displaced transverse fracture of shaft of right femur, initial encounter for closed fracture (2) Atypical fracture of femur: Current visit: No Status: Acute The appearance of this fracture has all the hallmarks of an atypical femur fracture, usually caused by bisphosphonate use. I recommend stopping all bisphosphonates. This type of fracture usually does not heal as quickly as a more traumatic fracture. We will have to follow closely and may have to consider supplementation with something like Forteo. Qualifiers: Encounter type: initial encounter Fracture healing: Qualified Code(s): M84.750A - Atypical femoral fracture, unspecified, initial encounter for fracture Subjective Patient reports: feels better Interval history since last seen: She has been able to put more weight on the right leg. She feels more confident. She denies having any significant pain. She has not been having the lateral thigh pain. She denies any chest pain or shortness of breath. She denies any numbness or tingling. Exam Narrative Exam Narrative: There is some residual swelling about the right thigh but this thigh is quite soft and compressible. The dressings are removed. The most superior and distal wounds appear nearly healed. The central 2 wounds still have some minor sanguinous discharge. A dressing was applied over these. Resolving ecchymosis is seen in the thigh. No pain with internal and external rotation of the leg. She is able to actively flex the hip and actively flex and extend the knee. She has active ankle dorsiflexion, plantarflexion as well as great toe extension and flexion without deficit. Sensation intact light touch over the femoral nerve distribution including the tibial and peroneal nerve distributions. Objective Objective Clinical Data: Abnormal lab results 08/08/18 Range/Units 09:38 Hgb 10.5 L (12.0-15.5) g/dL Hct 32.1 L (36.0-46.0) % Vital Signs Temperature 37.2 C 08/08/18 11:20 Temperature Source Tympanic 08/08/18 11:20 Pulse 94 H 08/08/18 11:20 Pulse Rhythm Regular 08/08/18 07:40 Respiratory Rate 18 08/08/18 11:20 Respiratory Effort Non-Labored 08/08/18 07:40 Respiratory Depth Normal 08/08/18 07:40 Respiratory Pattern Normal 08/08/18 07:40 Blood Pressure 153/75 H 08/08/18 11:20 Pulse Oximetry 95 08/08/18 11:20 Respiratory End-tidal CO2 36 08/03/18 11:57 Oxygen Delivery Method Room Air 08/08/18 11:20 Oxygen Flow Rate 0 08/08/18 11:20 Pain Level 3 08/08/18 12:50 Comment 08/08/18 11:20 Intake & Output 08/07/18 08/08/18 08/08/18 23:59 11:59 23:59 Intake Total 720 / 1180 660 / 900 240 / 900 Output Total 950 / 2450 1425 / 1425 Balance -230 / -1270 -765 / -525 240 / -525 Intake: IV 20 / Oral 720 / 720 640 / 880 240 / 880 Output: Urine 950 / 2450 1425 / 1425 Other: Urine Color Yellow Yellow Urine Appearance Clear Cloudy Sediment Comment Urine noted to be foul smelling. CCRN Kalee notified. Stool Size Small Stool Characteristics Soft Brown Voiding Methods Indwelling Catheter Laboratory Results WBC 8.09 k/cumm (4.4-10.8) 08/06/18 09:10 RBC 3.31 m/cumm (4.00-5.20) L 08/06/18 09:10 Hgb 10.5 g/dL (12.0-15.5) L 08/08/18 09:38 Hct 32.1 % (36.0-46.0) L 08/08/18 09:38 MCV 92.7 fL (80-95) 08/06/18 09:10 MCH 30.2 pg (27.0-33.0) 08/06/18 09:10 MCHC 32.6 g/dL (32.0-36.0) 08/06/18 09:10 RDW 16.9 % (11.7-14.6) H 08/06/18 09:10 Plt Count 312 x1000/uL (130-400) 08/06/18 09:10 MPV 9.8 fL (8.0-11.0) 08/06/18 09:10 Immature Gran % 0.4 08/06/18 09:10 Neutrophils % 70.8 08/06/18 09:10 Lymphocytes % 15.1 08/06/18 09:10 Monocytes % 10.3 08/06/18 09:10 Eosinophils % 3.2 08/06/18 09:10 Basophils % 0.2 08/06/18 09:10 Absolute Neutrophils 5.73 k/cumm (1.2-6.7) 08/06/18 09:10 Absolute Lymphocytes 1.22 k/cumm (1.2-3.4) 08/06/18 09:10 Absolute Monocytes 0.83 k/cumm (0.11-0.7) H 08/06/18 09:10 Absolute Eosinophils 0.26 k/cumm (0.0-0.7) 08/06/18 09:10 Absolute Basophils 0.02 k/cumm (0.0-0.2) 08/06/18 09:10 Sodium 143 mmol/L (136-145) 08/06/18 09:10 Potassium 4.5 mmol/L (3.5-5.1) 08/06/18 09:10 Chloride 108 mmol/L (98-107) H 08/06/18 09:10 Carbon Dioxide 24.1 mmol/L (21.0-32.0) 08/06/18 09:10 Anion Gap 10.9 mmol/L (3-11) 08/06/18 09:10 BUN 30 mg/dL (7-18) H 08/06/18 09:10 Creatinine 0.94 mg/dL (0.55-1.02) 08/06/18 09:10 Estimated GFR/1.73 m2 58.70 (mL/min/1.73m2) 08/06/18 09:10 Glucose 112 mg/dL (70-100) H 08/06/18 09:10 Calcium 9.7 mg/dL (8.5-10.1) 08/06/18 09:10 Magnesium 1.7 mg/dL (1.8-2.4) L 08/06/18 09:10 Albumin 2.1 g/dL (3.4-5.0) L 08/04/18 07:01 25-OH Vitamin D Total 32.6 ng/ml (30-100) 08/04/18 07:01 TSH 4.09 uIU/mL (0.358-3.74) H 08/03/18 07:00 Free T4 1.15 ng/dL (0.76-1.46) 08/03/18 07:00 Patient ABO/Rh A Positive 08/03/18 07:00 Antibody Screen Negative 08/03/18 07:00 Crossmatch See Detail 08/05/18 08:48
--- NOTE | 2018-08-09 11:07 | PT.INDS ---
Date of service: 08/09/18 Time of Service: 08:00 PT Notes DISCHARGE SUMMARY Date: 08/09/18 Referring Doctor: Robert Best MD PT Orders: PT CONSULT: s/p IMN R Femur, WBAT with assistive device Precautions: WBAT on R with AD Patient Profile/Admitting Diagnosis: Patient is a 73-year-old female who suffered a fall at home. She suffered a femoral fracture, and underwent IM nailing 08/03/18. She participated in skilled PT intervention 1-2/x day for 5 days, with a total of 9 PT sessions. She demonstrated improved mobility, although continued to lack the independence required to return to independent living once she medically stabilized. She was recommended for ongoing PT in inpatient setting, either through SNF or SB level of care. She transitioned to Swing Bed for ongoing rehabilitation prior to anticipated return home once independent. PMHX: Heart murmur, depression, hypothyroid, itching, lower leg fracture, lumbar spine pain Social History/Home Situation: Patient lives alone locally in the area she has friends and family who check on closely Equipment Owned/DME: Patient utilizes a FWW walker Subjective: None obtained Objective: ROM: Right Upper Extremity: Active shoulder flexion allows 60 degrees, passively 90 degrees. External rotation to neutral only. Elbow and wrist motion are within normal limits Left Upper Extremity: Active shoulder flexion allows 80 degrees, passively she tolerates 160 degrees with significant crepitus noted. She tolerates active external rotation to 45 degrees. Right Lower Extremity: Hip flexion to 90 degrees, knee range of motion allows 0-95 degrees, ankle range of motion within normal limits Left Lower Extremity: Within normal limits Strength: Right Upper Extremity: Shoulder flexion 3-/5. External rotation 3-/5. Biceps 4/5. Triceps 4/5. Left Upper Extremity: Shoulder flexion 3-/5. External rotation 3/5. Biceps 4/5. Triceps 4/5. Right Lower Extremity: Quads 4/ 5 reluctant due to pain, hamstrings 4-5 reluctant due to pain, dorsiflexion plantarflexion 5 out of 5 Left Lower Extremity: Globally 5 out of 5 Bed Mobility/Transfers: Supine-sit: Independent Sit to supine: CGA Sit-stand: Supervision Stand-sit: Supervision Gait: Patient is able to ambulate 50 feet with FW W, CGA, WBAT RLE. Balance: Static Sitting: good Dynamic Sitting: Fair Static Standing: Fair Dynamic Standing: Fair ASSESSMENT: Patient is a 73-year-old female who has medically stabilized after acute care stay following IM nailing for right femoral fracture. Patient has received extensive PT intervention during her acute care stay, however continues to require assistance with household distance ambulation and transfers. She requires ongoing PT intervention in an inpatient setting prior to transitioning home. Care management has been working on placement in a senior care facility, and she is now transitioning to swing bed level of care here in our facility. She is appropriate for discharge from PT intervention in acute care setting, and will be evaluated for continued PT intervention on Swing Bed level of care. Goals: Goals X1 week 1. Supine-Sit SBA (MET) 2. Sit-Supine SBA(MET) 3. Sit-Stand SBA with FWW (MET) 4. Stand-Sit SBA with FWW(MET) 5. Bed-Chair SBA with FWW(progressing toward) 6. Gait up to 50feet with FWW and SBA (progressing toward) 7: Independent in Home program (progressing toward) Plan of Care/Treatment Plan: D/C from PT in acute care setting. Will require ongoing PT intervention on Swing Bed level of care. DISCHARGE RECOMMENDATIONS: as above Navya Zheng, PT, DPT [facility]
== END 2018-08-08 15:20 | disposition swing bed (61) | DRG 481 ==
PROVIDERS: Student in an Organized Health Care Education/Training Program; Admitting Provider Internal Medicine; PCP Nurse Practitioner Family; Visit Provider Internal Medicine
PROC: 0QSB06Z Reposition Right Lower Femur with Intramedullary Internal Fixation Device, Open Approach (ICD-10-PCS; CPT 27506; principal; 2018-08-03 07:45)
DX: M84.750A Atypical femoral fracture, unspecified, initial encounter for fracture (principal); D62 Acute posthemorrhagic anemia; T45.8X5A Adverse effect of other primarily systemic and hematological agents, initial encounter; Z79.83 Long term (current) use of bisphosphonates; Y92.010 Kitchen of single-family (private) house as the place of occurrence of the external cause; E03.9 Hypothyroidism, unspecified; F32.9 Major depressive disorder, single episode, unspecified; E78.5 Hyperlipidemia, unspecified; I10 Essential (primary) hypertension; Z87.81 Personal history of (healed) traumatic fracture; M54.16 Radiculopathy, lumbar region; R26.89 Other abnormalities of gait and mobility; Y83.8 Other surgical procedures as the cause of abnormal reaction of the patient, or of later complication, without mention of misadventure at the time of the procedure; D50.9 Iron deficiency anemia, unspecified
CPT/HCPCS: 27506; 36415; 36430; 73552; 80048; 82306; 85027; 86850; 86900; 86901; 86920; 97110; 97162; 97530; 99223; 99231; 99232; 99233; 99238; 99253; J1650; NC; 73501; 82040; 83735; 84439; 84443; 85014; 85018; 85025; J1885; J2270; J2405; J3010; J3475; J3480; P9016

== ENCOUNTER → 2018-08-03 07:45 | Outpatient (BNVA) | payer MEDICARE, SELFPAY ==
--- NOTE | 2018-08-20 12:58 | PT.DS ---
Date of service 08/20/18 PT Notes Physical Therapy Discharge Summary Dates: 08/20/2018 Dates of Service: Date: 08/09/18 Referring Doctor: Robert Best MD PT Orders: PT CONSULT: s/p IMN R Femur, WBAT with assistive device Precautions: WBAT on R with AD Patient Profile/Admitting Diagnosis: Patient is a 73-year-old female who suffered a fall at home. She suffered a femoral fracture, and underwent IM nailing 08/03/18. She participated in skilled PT intervention 1-2/x day for 5 days, with a total of 9 PT sessions. She demonstrated improved mobility, although continued to lack the independence required to return to independent living once she medically stabilized. She was recommended for ongoing PT in inpatient setting, either through SNF or SB level of care. She transitioned to Swing Bed for ongoing rehabilitation prior to anticipated return home once independent. PMHX: Heart murmur, depression, hypothyroid, itching, lower leg fracture, lumbar spine pain Social History/Home Situation: Patient lives alone locally in the area she has friends and family who check on closely Equipment Owned/DME: Patient utilizes a FWW walker Subjective: None obtained Objective: ROM: Right Upper Extremity: Active shoulder flexion allows 60 degrees, passively 90 degrees. External rotation to neutral only. Elbow and wrist motion are within normal limits Left Upper Extremity: Active shoulder flexion allows 80 degrees, passively she tolerates 160 degrees with significant crepitus noted. She tolerates active external rotation to 45 degrees. Right Lower Extremity: Hip flexion to 90 degrees, knee range of motion allows 0-95 degrees, ankle range of motion within normal limits Left Lower Extremity: Within normal limits Strength: Right Upper Extremity: Shoulder flexion 3-/5. External rotation 3-/5. Biceps 4/5. Triceps 4/5. Left Upper Extremity: Shoulder flexion 3-/5. External rotation 3/5. Biceps 4/5. Triceps 4/5. Right Lower Extremity: Quads 4/ 5 reluctant due to pain, hamstrings 4-5 reluctant due to pain, dorsiflexion plantarflexion 5 out of 5 Left Lower Extremity: Globally 5 out of 5 Bed Mobility/Transfers: Supine-sit: Independent Sit to supine: CGA Sit-stand: Supervision Stand-sit: Supervision Gait: Patient is able to ambulate 50 feet with FW W, CGA, WBAT RLE. Balance: Static Sitting: good Dynamic Sitting: Fair Static Standing: Fair Dynamic Standing: Fair ASSESSMENT: Patient is a 73-year-old female who has medically stabilized after acute care stay following IM nailing for right femoral fracture. Patient has received extensive PT intervention during her acute care stay, however continues to require assistance with household distance ambulation and transfers. She requires ongoing PT intervention in an inpatient setting prior to transitioning home. Care management has been working on [facility] a [facility], and she is now transitioning to swing bed level of care here in our facility. She is appropriate for discharge from PT intervention in acute care setting, and will be evaluated for continued PT intervention on Swing Bed level of care. Goals: Goals X1 week 1. Supine-Sit SBA (MET) 2. Sit-Supine SBA(MET) 3. Sit-Stand SBA with FWW (MET) 4. Stand-Sit SBA with FWW(MET) 5. Bed-Chair SBA with FWW(progressing toward) 6. Gait up to 50feet with FWW and SBA (progressing toward) 7: Independent in Home program (progressing toward) Plan of Care/Treatment Plan: D/C from PT in acute care setting. Will require ongoing PT intervention on Swing Bed level of care. DISCHARGE RECOMMENDATIONS: as above Navya Zheng, PT, DPT [facility]
--- NOTE | 2018-08-20 13:07 | PTDS_ITS ---
Date of service 08/20/18 PT Notes Physical Therapy Discharge Summary Dates: 08/20/2018 Dates of Service: Date: 08/09/18 Referring Doctor: Robert Best MD PT Orders: PT CONSULT: s/p IMN R Femur, WBAT with assistive device Precautions: WBAT on R with AD Patient Profile/Admitting Diagnosis: Patient is a 73-year-old female who suffered a fall at home. She suffered a femoral fracture, and underwent IM nailing 08/03/18. She participated in skilled PT intervention 1-2/x day for 5 days, with a total of 9 PT sessions. She demonstrated improved mobility, although continued to lack the independence required to return to independent living once she medically stabilized. She was recommended for ongoing PT in inp atient setting, either through SNF or SB level of care. She transitioned to Swing Bed for ongoing rehabilitation prior to anticipated return home once independent. PMHX: Heart murmur, depression, hypothyroid, itching, lower leg fracture, lumbar spine pain Social History/Home Situation: Patient lives alone locally in the area she has friends and family who check on closely Equipment Owned/DME: Patient utilizes a FWW walker Subjective: None obtained Objective: ROM: Right Upper Extremity: Active shoulder flexion allows 60 degrees, passively 90 degrees. External rotation to neutral only. Elbow and wrist motion are within normal limits Left Upper Extremity: Active shoulder flexion allows 80 degrees, passively she tolerates 160 degrees with significant crepitus noted. She tolerates active external rotation to 45 degrees. Right Lower Extremity: Hip flexion to 90 degrees, knee range of motion allows 0- 95 degrees, ankle range of motion within normal limits Left Lower Extremity: Within normal limits Strength: Right Upper Extremity: Shoulder flexion 3-/5. External rotation 3-/5. Biceps 4/5. Triceps 4/5. Left Upper Extremity: Shoulder flexion 3-/5. External rotation 3/5. Biceps 4/5. Triceps 4/5. Right Lower Extremity: Quads 4/ 5 reluctant due to pain, hamstrings 4-5 reluctant due to pain, dorsiflexion plantarflexion 5 out of 5 Left Lower Extremity: Globally 5 out of 5 Bed Mobility/Transfers: Supine-sit: Independent Sit to supine: CGA Sit-stand: Supervision Stand-sit: Supervision Gait: Patient is able to ambulate 50 feet with FW W, CGA, WBAT RLE. Balance: Static Sitting: good Dynamic Sitting: Fair Static Standing: Fair Dynamic Standing: Fair ASSESSMENT: Patient is a 73-year-old female who has medically stabilized after acute care stay following IM nailing for right femoral fracture. Patient has received extensive PT intervention during her acute care stay, however continues to require assistance with household distance ambulation and transfers. She requires ongoing PT intervention in an inpatient setting prior to transitioning home. Care management has been working on placement in a half-way facility, and she is now transitioning to swing bed level of care here in our facility. She is appropriate for discharge from PT intervention in acute care setting, and will be evaluated for continued PT intervention on Swing Bed level of care. Goals: Goals X1 week 1. Supine-Sit SBA (MET) 2. Sit-Supine SBA(MET) 3. Sit-Stand SBA with FWW (MET) 4. Stand-Sit SBA with FWW(MET) 5. Bed-Chair SBA with FWW(progressing toward) 6. Gait up to 50feet with FWW and SBA (progressing toward) 7: Independent in Home program (progressing toward) Plan of Care/Treatment Plan: D/C from PT in acute care setting. Will require ongoing PT intervention on Swing Bed level of care. DISCHARGE RECOMMENDATIONS: as above Navya Zheng, PT, DPT [facility]
== END ==
PROVIDERS: PCP Nurse Practitioner Family; Referring Provider Nurse Practitioner Family; Visit Provider Student in an Organized Health Care Education/Training Program
DX: R69 Illness, unspecified (principal)

== ENCOUNTER 2018-08-08 14:58 | Inpatient (IN) | payer MEDICARE, SELFPAY ==
--- NOTE | 2018-08-08 15:01 | W.PM.HP.N ---
Date of service: 08/08/18 Time of Service: 15:02 Assessment and Plan (1) Closed right femoral fracture: Current visit: Yes Status: Acute Evidence of a displaced right sided midshaft femoral fracture, s/p surgical repair on 08/03. Pain appears controlled. Of note, in review of Dr. Best's note the patient appears to have had prior history of bisphosphonate use (took 'something once a week for bones'), and her current appearance and location of the fracture may suggest atypical features suggestive of fracture associated with bisphosphonate use. Vitamin D level appears normal. Corrected Calcium is normal as well. PT continues to work with patient, and pain appears controlled. Requires SNF level care at discharge but placement an issue at this time. Will discharge to swing bed status today. Qualifiers: Encounter type: initial encounter Femur location: shaft Fracture morphology: transverse Fracture alignment: displaced Fracture healing: Qualified Code(s): S72.321A - Displaced transverse fracture of shaft of right femur, initial encounter for closed fracture (2) Anemia: Current visit: Yes Status: Chronic Normocytic, with some degree of anemia in the past, and expected post-op blood loss anemia following. However evidence of further drop previously, with concurrent worsening creatinine as well as fatigue and hypotension - responded well to 1 unit of PRBCs, and remains stable. Monitor. (3) History of alcohol abuse: Current visit: Yes Status: Acute Reports sobriety for 7 months. No need for CIWA at this time. (4) Lumbar back pain with radiculopathy affecting right lower extremity: Current visit: No Status: Chronic Continue Gabapentin. Currently with Amitryptilline on hold as potential contributing factor to patient's chronic imbalance. (5) Heart murmur: Current visit: No Status: Chronic Potential MR based on admitting attending's bedside ECHO. Will recommend official ECHO as outpatient. Currently appears stable. (6) Hypothyroidism (acquired): Current visit: No Status: Chronic Continue replacement therapy. (7) DVT prophylaxis: Current visit: Yes Status: Acute SC Lovenox as initiated by Ortho. (8) Discharge planning issues: Current visit: Yes Status: Acute Discharge to Swing Status today while awaiting placement. History of Present Illness Chief Complaint: Right Femoral Fracture Narrative: 73 year old woman with a prior history significant for chronic imbalance, admitted from [facility] Emergency Department following a mechanical fall with subsequent right sided femoral fracture. Mrs. Perez has a past medical history significant for HTN, dyslipidemia, hypothyroidism, and depression. There is noted chronic LBP with radiculopathy involving the RLE. She reports an approximate 2-year history of chronic imbalance and gait unsteadiness. On the night of her admission she sustained a fall while in the kitchen. She took a step away from the counter and lost her balance and fell onto her right side fracturing her right mid femur. She was on the floor for approximately 3 hours prior to discovery by a friend. Patient lives in [place] and was sent to the ED at [facility] but due to lack of orthopedic coverage the patient was transferred to [facility] and accepted by Dr. Robert Best. Mrs. Perez underwent a successful surgical repair on 08/03. She's had expected post-op anemia, slightly worse on the morning of 08/05, with mildl elevation in creatinine as well as subjective fatigue and mild hypotension. She has responded well to transfusion with one unit of PRBCs, with return of her kidney function to normal. Her Hgb remains normal today. No overnight events reported. Remains afebrile. [facility] Social History Smoking and Tabacco status: Former Tobacco Use Meds Home Medications Medication Instructions Recorded Confirmed Type citalopram [Celexa] 40 mg PO DAILY 06/28/17 08/02/18 History amitriptyline 75 mg PO DAILY 08/02/18 08/02/18 History amlodipine 5 mg PO DAILY 08/02/18 08/02/18 History gabapentin 100 mg PO TID 08/02/18 08/02/18 History levothyroxine 75 mcg PO DAILY 08/02/18 08/02/18 History lisinopril 40 mg PO DAILY 08/02/18 08/02/18 History melatonin 5 mg PO HS 08/02/18 08/02/18 History omeprazole 20 mg PO DAILY 08/02/18 08/02/18 History oxybutynin chloride 5 mg PO BID 08/02/18 08/02/18 History simvastatin 10 mg PO HS 08/02/18 08/02/18 History tramadol 50 mg PO Q6H PRN PRN 08/02/18 08/02/18 History Allergies Allergy/AdvReac Type Severity Reaction Status Date / Time Penicillins Allergy Intermediate Unverified 10/22/17 08:41
--- NOTE | 2018-08-08 15:04 | HPE_ITS ---
Date of service: 08/08/18 Time of Service: 15:02 Assessment and Plan (1) Closed right femoral fracture: Current visit: Yes Status: Acute Evidence of a displaced right sided midshaft femoral fracture, s/p surgi vika repair on 08/03. Pain appears controlled. Of note, in review of Dr. Best's note the patient appears to have had prior history of bisphosphonate use (took 'something once a week for bones'), and her current appearance and location of the fracture may suggest atypical features suggestive of fracture associated with bisphosphonate use. Vitamin D level appears normal. Corrected Calcium is normal as well. PT continues to work with patient, and pain appears controlled. Requires SNF level care at discharge but placement an issue at this time. Will discharge to swing bed status today. Qualifiers: Encounter type: initial encounter Femur location: shaft Fracture morphology: transverse Fracture alignment: displaced Fracture healing: Qualified Code(s): S72.321A - Displaced transverse fracture of shaft of right femur, initial encounter for closed fracture (2) Anemia: Current visit: Yes Status: Chronic Normocytic, with some degree of anemia in the past, and expected post-op blood loss anemia following. However evidence of further drop previously, with concurrent worsening creatinine as well as fatigue and hypotension - responded well to 1 unit of PRBCs, and remains stable. Monitor. (3) History of alcohol abuse: Current visit: Yes Status: Acute Reports sobriety for 7 months. No need for CIWA at this time. (4) Lumbar back pain with radiculopathy affecting right lower extremity: Current visit: No Status: Chronic Continue Gabapentin. Currently with Amitryptilline on hold as potential contributing factor to patient's chronic imbalance. (5) Heart murmur: Current visit: No Status: Chronic Potential MR based on admitting attending's bedside ECHO. Will recommend official ECHO as outpatient. Currently appears stable. (6) Hypothyroidism (acquired): Current visit: No Status: Chronic Continue replacement therapy. (7) DVT prophylaxis: Current visit: Yes Status: Acute SC Lovenox as initiated by Ortho. (8) Discharge planning issues: Current visit: Yes Status: Acute Discharge to Swing Status today while awaiting placement. History of Present Illness Chief Complaint: Right Femoral Fracture Narrative: 73 year old woman with a prior history significant for chronic imbalance, admitted from [facility] Emergency Department following a mechanical fall with subsequent right sided femoral fracture. Mrs. Rosebrough has a past medical history significant for HTN, dyslipidemia, hypothyroidism, and depression. There is noted chronic LBP with radiculopathy involving the RLE. She reports an approximate 2-year history of chronic imbalance and gait unsteadiness. On the night of her admission she sustained a fall while in the kitchen. She took a step away from the counter and lost her balance and fell onto her right side fracturing her right mid femur. She was on the floor for approximately 3 hours prior to discovery by a friend. Patient lives in [place] and was sent to the ED at [facility] but due to lack of orthopedic coverage the patient was transferred to [facility] and accepted by Dr. Robert Best. Mrs. Perez underwent a successful surgical repair on 08/03. She's had expected post-op anemia, slightly worse on the morning of 08/05, with mildl elevation in creatinine as well as subjective fatigue and mild hypotension. She has responded well to transfusion with one unit of PRBCs, with return of her kidney function to normal. Her Hgb remains normal today. No overnight events reported. Remains afebrile. [facility] Social History Smoking and Tabacco status: Former Tobacco Use Meds Home Medications Medication Instructions Recorded Confirmed Type citalopram [Celexa] 40 mg PO DAILY 06/28/17 08/02/18 History amitriptyline 75 mg PO DAILY 08/02/18 08/02/18 History amlodipine 5 mg PO DAILY 08/02/18 08/02/18 History gabapentin 100 mg PO TID 08/02/18 08/02/18 History levothyroxine 75 mcg PO DAILY 08/02/18 08/02/18 History lisinopril 40 mg PO DAILY 08/02/18 08/02/18 History melatonin 5 mg PO HS 08/02/18 08/02/18 History omeprazole 20 mg PO DAILY 08/02/18 08/02/18 History oxybutynin chloride 5 mg PO BID 08/02/18 08/02/18 History simvastatin 10 mg PO HS 08/02/18 08/02/18 History tramadol 50 mg PO Q6H PRN PRN 08/02/18 08/02/18 History Allergies Allergy/AdvReac Type Severity Reaction Status Date / Time Penicillins Allergy Intermediate Unverified 10/22/17 08:41
[2018-08-08 15:47] VITALS: BP 115/61; PULSE 87; RESP 18; TEMP 37.1; O2SAT 96
[2018-08-08 16:44] VITALS: BP 157/76; PULSE 90; RESP 20; TEMP 37.8; O2SAT 97
[2018-08-08] MEDS: Gabapentin 100 MG CAP PO ×2 (16:46→20:03)
[2018-08-08] MEDS: Nystatin POWDER 60 GM JAR TP ×2 (16:47→20:03)
[2018-08-08 19:13] VITALS: BP 137/70; PULSE 91; RESP 18; TEMP 37.1; O2SAT 95
[2018-08-08] MEDS: oxyCODONE 5 MG TAB PO (20:15)
[2018-08-08 20:22] VITALS: BP 137/76; PULSE 87; RESP 18; TEMP 36.4; O2SAT 96
[2018-08-08] MEDS: Ibuprofen 600 MG TAB PO (22:20)
[2018-08-08] MEDS: Simvastatin 10 MG TAB PO (22:20)
[2018-08-08] MEDS: Melatonin 3 MG TAB 6 MG PO (22:20)
[2018-08-08 23:40] VITALS: BP 169/78; PULSE 83; RESP 18; TEMP 36.8; O2SAT 93
[2018-08-09] MEDS: Ibuprofen 600 MG TAB PO ×3 (06:02→21:23)
[2018-08-09] MEDS: Levothyroxine 75 MCG TAB PO (06:38)
[2018-08-09 07:45] VITALS: BP 178/97; PULSE 78; RESP 18; TEMP 36.3; O2SAT 97
[2018-08-09 07:57] LABS: Platelet Count 413 x1000/uL (130-400)
[2018-08-09] MEDS: Acetaminophen 325 MG TAB PO ×2 (09:46→17:10)
[2018-08-09] MEDS: Enoxaparin 40 MG/0.4 ML SYR SC (09:46)
[2018-08-09] MEDS: amLODIPine 5 MG TAB PO (09:47)
[2018-08-09] MEDS: Lisinopril 20 MG TAB 40 MG PO (09:48)
[2018-08-09] MEDS: Omeprazole 20 MG CAPCR PO (09:48)
[2018-08-09] MEDS: oxyCODONE 5 MG TAB PO ×2 (09:48→17:11)
[2018-08-09] MEDS: Gabapentin 100 MG CAP PO ×3 (09:49→20:10)
[2018-08-09] MEDS: Citalopram 20 MG TAB 40 MG PO (09:49)
[2018-08-09] MEDS: Nystatin POWDER 60 GM JAR TP ×3 (09:49→20:11)
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
--- NOTE | 2018-08-09 10:35 | PT.INIE ---
Date of service: 08/09/18 Time of Service: 09:15 PT Notes Inpatient Physical Therapy Evaluation Date: 08/09/18 Referring Doctor: Dr. Norton PT Orders: s/p IMN R Femur, WBAT with assistive device Precautions: WBAT on R with AD Patient Profile/Admitting Diagnosis: Patient is a 73-year-old female who suffered a fall at home. She suffered a femoral fracture, and underwent IM nailing 08/03/18. She participated in skilled PT intervention 1-2/x day for 5 days, with a total of 9 PT sessions. She demonstrated improved mobility, although continued to lack the independence required to return to independent living once she medically stabilized. She was recommended for ongoing PT in inpatient setting, either through SNF or SB level of care. She transitioned to Swing Bed for ongoing rehabilitation prior to anticipated return home once independent. PMHX: Heart murmur, depression, hypothyroid, itching, lower leg fracture, lumbar spine pain, osteoporosis Social History/Home Situation: Patient lives alone in a multilevel home with 2STE. She states that she typically remains on the first floor only, and does not need to access the second floor for day to day living. She uses a FWW at baseline. Does not drive. Equipment Owned/DME: Patient utilizes a FWW walker Subjective: Patient states that she is having more pain this morning, which she thinks is from walking more yesterday. She reports pain in the lateral thigh and anterior knee. Objective: Patient lying supine in bed with head of bed to 25 degrees, Abdul catheter in place Mental Status: Alert and oriented to person place and time Pain: 4/10 ROM: Right Upper Extremity: Active shoulder flexion allows 60 degrees, passively 90 degrees. External rotation to neutral only. Elbow and wrist motion are within normal limits Left Upper Extremity: Active shoulder flexion allows 80 degrees, passively she tolerates 160 degrees with significant crepitus noted. She tolerates active external rotation to 45 degrees. Right Lower Extremity: Hip flexion to 90 degrees, knee range of motion allows 0-95 degrees, ankle range of motion within normal limits Left Lower Extremity: Within normal limits Strength: Right Upper Extremity: Shoulder flexion 3-/5. External rotation 3-/5. Biceps 4/5. Triceps 4/5. Left Upper Extremity: Shoulder flexion 3-/5. External rotation 3/5. Biceps 4/5. Triceps 4/5. Right Lower Extremity: Quads 4/ 5 reluctant due to pain, hamstrings 4-5 reluctant due to pain, dorsiflexion plantarflexion 5 out of 5 Left Lower Extremity: Globally 5 out of 5 Bed Mobility/Transfers: Supine-sit: Independent Sit to supine: Independent Sit-stand: Supervision Stand-sit: Supervision Gait: Patient is able to ambulate 30 feet with FW W, CGA, WBAT RLE. Balance: Static Sitting: Normal Dynamic Sitting: Fair Static Standing: Fair Dynamic Standing: Fair Special Tests: Mobility Limitations Standardized Measure [facility] AM-PAC 6 clicks Basic Mobility Inpatient Short Form: Raw Score: 18 CMS Score: 47% deficit Informed Consent/Education: Patient instructed in purpose of PT consult and plan of care. She received gait and transfer training, as noted above. She was then instructed in a therapeutic exercise program consisting of upper and lower extremity strengthening activities, within pain tolerance. Full program can be found noted on flowsheet ASSESSMENT: Patient is a 73-year-old female who has medically stabilized after acute care stay following IM nailing for right femoral fracture. Patient has received extensive PT intervention during her acute care stay, however continues to require assistance with household distance ambulation and transfers. She requires ongoing PT intervention in an inpatient setting prior to transitioning home. Care management has been working on placement in a fpc facility, and she is now transitioning to swing bed level of care here in our facility. She requires ongoing PT intervention to allow for continued progress towards established goals. She currently demonstrates the following impairment level findings: 1. Decreased upper extremity range of motion 2. Decreased right knee range of motion 3. Decreased right lower extremity strength 4. Decreased activity tolerance 5. Gait impairments 6. History of falls Impairments are contributing to the following functional limitations: 1. High fall risk 2. Unable to independently ambulate household distances 3. Unable to manage stairs 4. Unable to demonstrate safety with transfers sufficient to allow for independent completion Patient is assessed as a moderate complexity initial evaluation based on the following: History: 73-year-old female with history of osteoporosis and history of falls at home, now 6 days postop IM nailing for right femoral fracture. Patient does have social issues complicating discharge planning, including living alone and baseline mobility issues. Examination: Functional limitations as noted above Presentation: Evolving Decision Making: Moderate Goals: Goals X1 week 1. Supine-Sit : Independent 2. Sit-Supine : Independent 3. Sit-Stand : SBA with FWW 4. Stand-Sit : SBA with FWW 5. Bed-Chair SBA with FWW 6. Gait up to 100 feet with FWW and SBA 7: Independent in Home program Plan of Care/Treatment Plan: 1-2x/day, 7 days/week x 1 week. Plan of care has been reviewed with the RETAIL CUSTODIAL ASSOCIATE providing the service under Physical Therapy direction. Initiate Physical Therapy intervention for strengthening, bed mobility, transfers, gait, stairs, balance training, use of assistive device. DISCHARGE RECOMMENDATIONS: To home if goals are complete, otherwise may need additional rehabilitation in SNF setting TREATMENT CODE/TIME: Moderate complexity initial evaluation [id number] 30 min at 9:15-9:45
--- NOTE | 2018-08-09 10:39 | IN_ITS ---
Date of service: 08/09/18 Time of Service: 09:15 PT Notes Inpatient Physical Therapy Evaluation Date: 08/09/18 Referring Doctor: Dr. Norton PT Orders: s/p IMN R Femur, WBAT with assistive device Precautions: WBAT on R with AD Patient Profile/Admitting Diagnosis: Patient is a 73-year-old female who suffered a fall at home. She suffered a femoral fracture, and underwent IM nailing 08/03/18. She participated in skilled PT intervention 1-2/x day for 5 days, with a total of 9 PT sessions. She demonstrated improved mobility, although continued to lack the independence required to return to independent living once she medically stabilized. She was recommended for ongoing PT in inpatient setting, either through SNF or SB level of care. She transitioned to Swing Bed for ongoing rehabilitation prior to anticipated return home once independent. PMHX: Heart murmur, depression, hypothyroid, itching, lower leg fracture, lumbar spine pain, osteoporosis Social History/Home Situation: Patient lives alone in a multilevel home with 2STE. She states that she typically remains on the first floor only, and does not need to access the second floor for day to day living. She uses a FWW at baseline. Does not drive. Equipment Owned/DME: Patient utilizes a FWW walker Subjective: Patient states that she is having more pain this morning, which she thinks is from walking more yesterday. She reports pain in the lateral thigh and anterior knee. Objective: Patient lying supine in bed with head of bed to 25 degrees, Abdul catheter in place Mental Status: Alert and oriented to person place and time Pain: 4/10 ROM: Right Upper Extremity: Active shoulder flexion allows 60 degrees, passively 90 degrees. External rotation to neutral only. Elbow and wrist motion are within normal limits Left Upper Extremity: Active shoulder flexion allows 80 degrees, passively she tolerates 160 degrees with significant crepitus noted. She tolerates active external rotation to 45 degrees. Right Lower Extremity: Hip flexion to 90 degrees, knee range of motion allows 0- 95 degrees, ankle range of motion within normal limits Left Lower Extremity: Within normal limits Strength: Right Upper Extremity: Shoulder flexion 3-/5. External rotation 3-/5. Biceps 4/5. Triceps 4/5. Left Upper Extremity: Shoulder flexion 3-/5. External rotation 3/5. Biceps 4/5. Triceps 4/5. Right Lower Extremity: Quads 4/ 5 reluctant due to pain, hamstrings 4-5 reluctant due to pain, dorsiflexion plantarflexion 5 out of 5 Left Lower Extremity: Globally 5 out of 5 Bed Mobility/Transfers: Supine-sit: Independent Sit to supine: Independent Sit-stand: Supervision Stand-sit: Supervision Gait: Patient is able to ambulate 30 feet with FW W, CGA, WBAT RLE. Balance: Static Sitting: Normal Dynamic Sitting: Fair Static Standing: Fair Dynamic Standing: Fair Special Tests: Mobility Limitations Standardized Measure [facility] AM-PAC 6 clicks Basic Mobility Inpatient Short Form: Raw Score: 18 CMS Score: 47% deficit Informed Consent/Education: Patient instructed in purpose of PT consult and plan of care. She received gait and transfer training, as noted above. She was then instructed in a therapeutic exercise program consisting of upper and lower extremity strengthening activities, within pain tolerance. Full program can be found noted on flowsheet ASSESSMENT: Patient is a 73-year-old female who has medically stabilized after acute care stay following IM nailing for right femoral fracture. Patient has received extensive PT intervention during her acute care stay, however continues to require assistance with household distance ambulation and transfers. She requires ongoing PT intervention in an inpatient setting prior to transitioning home. Care management has been working on placement in a senior living facility, and she is now transitioning to swing bed level of care here in our facility. She requires ongoing PT intervention to allow for continued progress towards established goals. She currently demonstrates the following impairment level findings: 1. Decreased upper extremity range of motion 2. Decreased right knee range of motion 3. Decreased right lower extremity strength 4. Decreased activity tolerance 5. Gait impairments 6. History of falls Impairments are contributing to the following functional limitations: 1. High fall risk 2. Unable to independently ambulate household distances 3. Unable to manage stairs 4. Unable to demonstrate safety with transfers sufficient to allow for independent completion Patient is assessed as a moderate complexity initial evaluation based on the following: History: 73-year-old female with history of osteoporosis and history of falls at home, now 6 days postop IM nailing for right femoral fracture. Patient does have social issues complicating discharge planning, including living alone and baseline mobility issues. Examination: Functional limitations as noted above Presentation: Evolving Decision Making: Moderate Goals: Goals X1 week 1. Supine-Sit : Independent 2. Sit-Supine : Independent 3. Sit-Stand : SBA with FWW 4. Stand-Sit : SBA with FWW 5. Bed-Chair SBA with FWW 6. Gait up to 100 feet with FWW and SBA 7: Independent in Home program Plan of Care/Treatment Plan: 1-2x/day, 7 days/week x 1 week. Plan of care has been reviewed with the ADVISOR [employer] F[employer]ER providing the service under Physical Therapy direction. Initiate Physical Therapy intervention for strengthening, bed mobility, transfers, gait, stairs, balance training, use of assistive device. DISCHARGE RECOMMENDATIONS: To home if goals are complete, otherwise may need additional rehabilitation in SNF setting TREATMENT CODE/TIME: Moderate complexity initial evaluation 24031 30 min at 9:15-9:45
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
--- NOTE | 2018-08-09 10:59 | CM.SWINGPC ---
- If Service Date Differs Date of service: 08/08/18 Time of Service: 10:45 Swingbed Plan of Care Plan of care: SWING BED PROGRAM ACTIVITIES/DISCHARGE PLAN OF CARE ACTIVITIES PLAN Date:08/08/18 Identified Need: Individual activities Intervention/Plan: Activity Cart, music therapy, rekie, animal therapy, television, and phone in the room. Initials MARCELA DISCHARGE PLAN Date:08/08/18 Identified Need: Identified Need: SB1 x two weeks goal to return home with outpatient services Intervention/Plan:PT/OT x 2 weeks return home with home health for PT and OT at time of discharge. Initials KH
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
--- NOTE | 2018-08-09 12:08 | PHARADMIT ---
Addendum entered by Philip Holly III 08/14/18 14:48: SWING BED: VS-OK No Labs BM today REFUSED, STATIN & OMEPRAZOLE, CIPRO po DC if urine clear. ASA started MD note due today. Original Note: Addendum entered by Philip Holly III 08/10/18 14:16: Swing Bed: VS-OK [id number] No Med changes Original Note: Admission Pharmacy Clinical Review SWING BED Level 1 below is this acute stay Pharmacy Clinical Intervention: JAVY ORR Female : 1945 Emr# [id number] 08/05/18 16:20 - Pharmacy Review by Baylee Hidalgo Acct Num: [id number] : 1945 Patient Age: 73 Addendum entered by Philip Holly III 08/08/18 12:29: Patient transferred to SWING BED Original Note: Admission Pharmacy Clinical Review right mid shaft femur fracture Code Status Full Code Current Weight 62.4 kg Renally Cleared and Narrow Therapeutic Index Meds Crcl ~32.3 mL/min using adjusted body weight -acetaminophen: should be Q6H for GFR 10-50 mL/min -gabapentin: Crcl 30-59 mL/min 200-700 mg BID -ibuprofen: eGFR 30-60 mL/min avoid use in pt's with intercurrent disease that increases risk of CRIS QTc Value / Action Taken n/a BP Control, Fever BP 108/66 afebrile Electrolytes reviewed within normal limits DVT Prophylaxis enoxaparin- watch dosing if renal function gets worse Opiate Usage / Scheduled Bowel Regimen Ordered prn/prn Plt/SCr for Heparin / Enoxaparin plt 234 SCr 1.32 INR for Warfarin n/a H/H stable, WBC/Bands h/h 7.8/25.2 wbc 6.84 Antibiotic appropriateness none- was discontinued Cultures and Sensitivities none Surgical ABX d/c within 24 hr n/a DM control / Insulin Dosing BG 101 none Heart Failure (Check EF%) (ALLISON's, B-Block, Diuretics) lisinopril IV to PO Switch n/a Home Meds Reviewed -amitriptyline may enhance the adverse effects of citalopram -omprazole may increase the serum concentration of citalopram, limit to max dose of 20 mg if used in combo with omeprazole -limit doses of simvastatin to 20 mg when used in combo with amlodipine -multiple PULMONARY SPECIALIST depressants: tramadol, gabapentin, amitriptyline Home Meds Not Ordered amitriptyline, oxybutynin, tramadol Comments working on placement I sent a message about the citalopram/omeprazole interaction Initialized on 08/05/18 16:20 - END OF NOTE
[2018-08-09 14:39] LABS: Bilirubin Negative (Negative); Blood Small (Negative); Clarity Sl Cloudy; Glucose Negative (Negative); Ketones Negative (Negative); Leukocyte Esterase Moderate (Negative); Nitrite Positive (Negative); Specific Gravity 1.015 (1.005-1.025); Urobilinogen 0.2 EU/dL (Up TO 0.2); pH 6.5 (5-8)
[2018-08-09 14:58] LABS: Bacteria Many HPF (Negative); C & S Indicated? Yes; Epithelial Cells Few HPF (Negative); WBC >50 HPF (0-5)
[2018-08-09 16:10] VITALS: BP 148/73; PULSE 87; RESP 17; TEMP 37.2; O2SAT 96
--- NOTE | 2018-08-09 16:26 | PT.INTREAT ---
Date of service: 08/09/18 Time of Service: 14:30 PT Notes 08/09/18 SUBJECTIVE: Gilma states that she is feeling good this afternoon. She is agreeable to getting up and walking. OBJECTIVE: Pt supine in bed. Agreeable to PT treatment. TRANSFERS Supine to sit: I Sit to supine: I Sit to stand: Supervision Stand to sit: Supervision Bed to chair: FW W with supervision GAIT Device: FWW Weight bearing: WBAT Assist: CGA Distance: 30' x 2 Deviation: Step through pattern THEREX: Patient was instructed in LE strengthening and ROM to the right hip and knee. See flow sheet for specifics. She was able to tolerate addition of Thera-Band resisted upper extremity strengthening activities as well, with need for cues for upright positioning throughout. ASSESSMENT: Improving independence with transfers and short distance ambulation. Patient did have significant soreness after longer walking distances yesterday; will continue with increased frequency of short distance ambulation to improve tolerance. PLAN: Continue current POC progressing towards established goals. Plan to evaluate patient on stairs as her tolerance to WBing improves. Navya Zheng, PT, DPT [facility]
--- NOTE | 2018-08-09 16:29 | PTTR_ITS ---
Date of service: 08/09/18 Time of Service: 14:30 PT Notes 08/09/18 SUBJECTIVE: Gilma states that she is feeling good this afternoon. She is agreeable to getting up and walking. OBJECTIVE: Pt supine in bed. Agreeable to PT treatment. TRANSFERS Supine to sit: I Sit to supine: I Sit to stand: Supervision Stand to sit: Supervision Bed to chair: FW W with supervision GAIT Device: FWW Weight bearing: WBAT Assist: CGA Distance: 30' x 2 Deviation: Step through pattern THEREX: Patient was instructed in LE strengthening and ROM to the right hip and knee. See flow sheet for specifics. She was able to tolerate addition of Thera- Band resisted upper extremity strengthening activities as well, with need for cues for upright positioning throughout. ASSESSMENT: Improving independence with transfers and short distance ambulation. Patient did have significant soreness after longer walking distances yesterday; will continue with increased frequency of short distance ambulation to improve tolerance. PLAN: Continue current POC progressing towards established goals. Plan to evaluate patient on stairs as her tolerance to WBing improves. Navya Zheng, PT, DPT [facility]
[2018-08-09 19:27] VITALS: BP 165/69; PULSE 86; RESP 18; TEMP 37.2; O2SAT 95
[2018-08-09] MEDS: Melatonin 3 MG TAB 6 MG PO (21:22)
[2018-08-09] MEDS: Simvastatin 10 MG TAB PO (21:22)
[2018-08-10 00:18] VITALS: BP 163/69; PULSE 81; RESP 17; TEMP 36.8; O2SAT 96
[2018-08-10 01:08] VITALS: O2SAT 95
[2018-08-10] MEDS: Ibuprofen 600 MG TAB PO ×3 (05:47→21:53)
[2018-08-10] MEDS: Levothyroxine 75 MCG TAB PO (06:29)
[2018-08-10 07:40] VITALS: BP 173/80; PULSE 80; RESP 16; TEMP 36.3; O2SAT 96
[2018-08-10] MEDS: oxyCODONE 5 MG TAB PO (09:46)
[2018-08-10] MEDS: Acetaminophen 325 MG TAB PO (09:47)
[2018-08-10] MEDS: Citalopram 20 MG TAB 40 MG PO (09:48)
[2018-08-10] MEDS: Omeprazole 20 MG CAPCR PO (09:48)
[2018-08-10] MEDS: Gabapentin 100 MG CAP PO ×3 (09:48→20:48)
[2018-08-10] MEDS: Lisinopril 20 MG TAB 40 MG PO (09:48)
[2018-08-10] MEDS: amLODIPine 5 MG TAB PO (09:49)
[2018-08-10] MEDS: Enoxaparin 40 MG/0.4 ML SYR SC (09:49)
[2018-08-10] MEDS: Nystatin POWDER 60 GM JAR TP ×2 (09:50→20:47)
--- NOTE | 2018-08-10 10:01 | PT.INTREAT ---
Date of service: 08/10/18 Time of Service: 09:30 PT Notes Inpatient Physical Therapy Treatment Note [facility] Date: 08/10/18 SUBJECTIVE:Gilma states that she is beginning to feel stronger. OBJECTIVE: [] BED MOBILITY/TRANSFERS Sit-stand: S Stand-sit: S GAIT Assistive Device: FWW Weight bearing:WBAT Assist: CGA Distance: 40'x2 THEREX:global LE strength and stabilization ex. See flowsheet for details. ASSESSMENT: tolerated session well. Gait mechanics appeared better post ex, compared to pre ex. Stride length was improved, less antalgia noted. PLAN: will continue to progress following POC. TREATMENT CODE/TIME: 25 min. TPx1, TAx1.
[2018-08-10 15:24] VITALS: BP 149/76; PULSE 84; RESP 18; TEMP 37; O2SAT 95
[2018-08-10] MEDS: Melatonin 3 MG TAB 6 MG PO (21:53)
[2018-08-10] MEDS: Simvastatin 10 MG TAB PO (21:53)
[2018-08-11 02:04] VITALS: BP 138/72; PULSE 75; RESP 18; TEMP 36.4; O2SAT 95
[2018-08-11] MEDS: oxyCODONE 5 MG TAB PO ×4 (02:04→21:04)
[2018-08-11] MEDS: Acetaminophen 325 MG TAB PO ×4 (02:09→21:04)
[2018-08-11] MEDS: Levothyroxine 75 MCG TAB PO (07:01)
[2018-08-11] MEDS: Ibuprofen 600 MG TAB PO ×3 (07:02→21:04)
[2018-08-11 07:33] VITALS: BP 168/79; PULSE 71; RESP 18; TEMP 36.6; O2SAT 96
[2018-08-11] MEDS: Omeprazole 20 MG CAPCR PO (08:05)
[2018-08-11] MEDS: Citalopram 20 MG TAB 40 MG PO (08:05)
[2018-08-11] MEDS: Lisinopril 20 MG TAB 40 MG PO (08:05)
[2018-08-11] MEDS: Enoxaparin 40 MG/0.4 ML SYR SC (08:05)
[2018-08-11] MEDS: amLODIPine 5 MG TAB PO (08:05)
[2018-08-11] MEDS: Gabapentin 100 MG CAP PO ×3 (08:05→21:04)
--- NOTE | 2018-08-11 11:10 | PT.INTREAT ---
Date of service: 08/11/18 Time of Service: 10:00 PT Notes Inpatient Physical Therapy Treatment Note [facility] Date: 08/11/18 SUBJECTIVE: Gilma states that she was really uncomfortable most of the night. She actually requested pain meds, and to be left alone this am. She reports feeling better when I entered the room, late am. OBJECTIVE: [] BED MOBILITY/TRANSFERS Supine-sit: I Sit-stand: S Stand-sit: S GAIT Assistive Device: FWW Weight bearing: []WBAT Assist: SBA Focvivin74'x2, and then 100'. THEREX global LE strength and stabilization. See flowsheet for specific details. She required cues for proper glut engagement ASSESSMENT: []tolerated session well. Increased stiffness noted initially, but this reduces the more she moved around. PLAN: will continue to progress following POC. TREATMENT CODE/TIME: 30 min tpx1, tax1.
[2018-08-11] MEDS: Nystatin POWDER 60 GM JAR TP ×2 (13:54→21:05)
[2018-08-11 15:21] VITALS: BP 139/80; PULSE 87; RESP 18; TEMP 37.1; O2SAT 97
[2018-08-11] MEDS: Simvastatin 10 MG TAB PO (21:04)
[2018-08-11] MEDS: Melatonin 3 MG TAB 6 MG PO (21:04)
[2018-08-11 23:34] VITALS: BP 136/87; PULSE 78; RESP 18; TEMP 36.7; O2SAT 98
[2018-08-12] MEDS: Levothyroxine 75 MCG TAB PO (06:56)
[2018-08-12] MEDS: Ibuprofen 600 MG TAB PO ×3 (06:57→22:37)
[2018-08-12 07:51] VITALS: BP 171/78; PULSE 75; RESP 16; TEMP 36.5; O2SAT 95
[2018-08-12 07:51] LABS: Platelet Count 500 x1000/uL (130-400)
[2018-08-12] MEDS: Enoxaparin 40 MG/0.4 ML SYR SC (08:08)
[2018-08-12] MEDS: Nystatin POWDER 60 GM JAR TP ×2 (08:08→19:44)
[2018-08-12] MEDS: amLODIPine 5 MG TAB PO (08:08)
[2018-08-12] MEDS: Gabapentin 100 MG CAP PO ×3 (08:08→19:44)
[2018-08-12] MEDS: Citalopram 20 MG TAB 40 MG PO (08:08)
[2018-08-12] MEDS: Lisinopril 20 MG TAB 40 MG PO (08:08)
--- NOTE | 2018-08-12 09:38 | PDOC.CMPRO ---
- If Service Date Differs Date of service: 08/12/18 Time of Service: 09:38 Care Management Progress Note S/O: Gilma remains in SB1 for PT and OT. No change in status today. A:Gilma is a 73 year old female admitted for right femoral fracture repair, transition to SB1 for short term rehab P:Gilma will return home with home health services PT/OT. RCT to transport her home at time of discharge.
[2018-08-12] MEDS: Ciprofloxacin 250 MG TAB PO ×2 (12:32→19:43)
[2018-08-12 13:14] LABS: Anion Gap 10.3 mmol/L (3-11); BUN 28 mg/dL (7-18); CO2 25.7 mmol/L (21.0-32.0); CREATININE 0.74 mg/dL (0.55-1.02); Calcium 9.6 mg/dL (8.5-10.1); Chloride 101 mmol/L (98-107); Glucose 111 mg/dL (70-100); Magnesium 1.9 mg/dL (1.8-2.4); Potassium 4.4 mmol/L (3.5-5.1); Sodium 137 mmol/L (136-145)
[2018-08-12 13:18] LABS: Abs Immature Grans 0.12 k/cumm (0.0-0.09); Absolute Basophil Count 0.02 k/cumm (0.0-0.2); Absolute Eosinophil Count 0.36 k/cumm (0.0-0.7); Absolute Lymphocyte Count 1.81 k/cumm (1.2-3.4); Absolute Monocyte Count 0.79 k/cumm (0.11-0.7); Absolute Neutrophil Count 6.97 k/cumm (1.2-6.7); Basophils % 0.2; Eosinophils % 3.6; HCT 33.3 % (36.0-46.0); HGB 10.7 g/dL (12.0-15.5); Immature Grans % 1.2; Mean Corp. HGB Concentration 32.1 g/dL (32.0-36.0); Mean Corpuscular Hemoglobin 30.2 pg (27.0-33.0); Mean Corpuscular Volume 94.1 fL (80-95); Mean Platelet Volume 9.3 fL (8.0-11.0); Monocytes % 7.8; Neutrophils % 69.2; Platelet Count 518 x1000/uL (130-400); RBC 3.54 m/cumm (4.00-5.20); White Blood Cell Count 10.07 k/cumm (4.4-10.8)
--- NOTE | 2018-08-12 14:12 | OT.INNT ---
Date of service: 08/12/18 Time of Service: 14:12 Occupational Therapy Notes 08/12/18 OT went to see pt. Pt reports, I already worked with PT and I'm rewarding myself by reading my book, so really what I'm asking you is when are you leaving. Pt laughed and then said seriously I'm all done working with services today. Pt was not receptive to OT coming back later so OT will check in with pt tomorrow morning. Isabel Jenkins, OTR/[facility]
--- NOTE | 2018-08-12 14:20 | PT.INTREAT ---
Date of service: 08/12/18 Time of Service: 14:20 PT Notes Inpatient Physical Therapy Treatment Note [facility] Date: 08/12/18 PRECAUTIONS: Fall SUBJECTIVE: Gilma is agreeable to participating in PT. OBJECTIVE: PAIN: Patient c/o pain in R hip area with gait training and ther ex BED MOBILITY/TRANSFERS Supine-sit: I Sit-supine: I Sit-stand: S Stand-sit: S GAIT Assistive Device: FWW Weight bearing: WBAT on R Assist: SBA Distance: 50' x3 in am; 150' in pm THEREX: Patient completed a LE strengthening and stabilization program in a seated position in a.m. and a supine position in p.m., as per flow sheet. STAIRS: Up/down 3x4 and 2x6 using B rails and a step-to pattern with CGA/SBA TOILETING: Patient toileted with supervision. ASSESSMENT: Patient tolerated sessions with minimal c/o pain in R hip area with gait training and ther ex. Patient was able to tolerate a progression in gait distance with FWW support and SBA. She would benefit from continued gait and transfer training for improved mobility. PLAN: Continue with PT's POC TREATMENT CODE/TIME: Session 1: 30 minutes; [id number], [id number] Session 2: 30 minutes; [id number], [id number]
--- NOTE | 2018-08-12 14:23 | PTTR_ITS ---
Date of service: 08/12/18 Time of Service: 14:20 PT Notes Inpatient Physical Therapy Treatment Note [facility] Date: 08/12/18 PRECAUTIONS: Fall SUBJECTIVE: Gilma is agreeable to participating in PT. OBJECTIVE: PAIN: Patient c/o pain in R hip area with gait training and ther ex BED MOBILITY/TRANSFERS Supine-sit: I Sit-supine: I Sit-stand: S Stand-sit: S GAIT Assistive Device: FWW Weight bearing: WBAT on R Assist: SBA Distance: 50' x3 in am; 150' in pm THEREX: Patient completed a LE strengthening and stabilization program in a seated position in a.m. and a supine position in p.m., as per flow sheet. STAIRS: Up/down 3x4 and 2x6 using B rails and a step-to pattern with CGA/SBA TOILETING: Patient toileted with supervision. ASSESSMENT: Patient tolerated sessions with minimal c/o pain in R hip area with gait training and ther ex. Patient was able to tolerate a progression in gait distance with FWW support and SBA. She would benefit from continued gait and transfer training for improved mobility. PLAN: Continue with PT's POC TREATMENT CODE/TIME: Session 1: 30 minutes; [id number], [id number] Session 2: 30 minutes; [id number], [id number]
[2018-08-12 15:40] VITALS: BP 147/82; PULSE 84; RESP 17; TEMP 36.7; O2SAT 96
[2018-08-12] MEDS: Simvastatin 10 MG TAB PO (22:37)
[2018-08-12] MEDS: Melatonin 3 MG TAB 6 MG PO (22:37)
[2018-08-13 00:43] VITALS: BP 159/76; PULSE 76; RESP 18; TEMP 36.8; O2SAT 95
[2018-08-13] MEDS: Ibuprofen 600 MG TAB PO ×3 (05:33→21:31)
[2018-08-13] MEDS: Levothyroxine 75 MCG TAB PO (06:20)
[2018-08-13 07:35] VITALS: BP 156/76; PULSE 86; RESP 16; TEMP 36.1; O2SAT 94
[2018-08-13] MEDS: Acetaminophen 325 MG TAB PO ×2 (09:14→16:04)
[2018-08-13] MEDS: oxyCODONE 5 MG TAB PO ×3 (09:14→19:59)
[2018-08-13] MEDS: Gabapentin 100 MG CAP PO ×3 (09:15→19:59)
[2018-08-13] MEDS: Lisinopril 20 MG TAB 40 MG PO (09:16)
[2018-08-13] MEDS: Ciprofloxacin 250 MG TAB PO ×2 (09:16→19:59)
[2018-08-13] MEDS: amLODIPine 5 MG TAB PO (09:16)
[2018-08-13] MEDS: Citalopram 20 MG TAB 40 MG PO (09:16)
[2018-08-13] MEDS: Nystatin POWDER 60 GM JAR TP ×3 (09:17→19:59)
[2018-08-13 09:50] VITALS: O2SAT 95
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
--- NOTE | 2018-08-13 14:44 | CHAPLAIN ---
Gilma was sitting up on the edge of her bed when I stopped in. She has continued to read while she is here, historical non-fiction. She asked for a ruler and measuring tape and [employer] Sales Representative Rosalva Burks gave me one to give to Gilma. Gilma is here on swing bed now. She doesn't seem to have visitors.
--- NOTE | 2018-08-13 16:31 | PT.INTREAT ---
Date of service: 08/13/18 Time of Service: 16:31 PT Notes Inpatient Physical Therapy Treatment Note [facility] Date: 08/13/18 PRECAUTIONS: Fall, WBAT R SUBJECTIVE: Gilma complains of right hip soreness in a.m. And afternoon patient states that she has had a very interesting day, although her hip feels better this afternoon. OBJECTIVE: PAIN: Patient complained of right hip soreness with transfers and gait training. BED MOBILITY/TRANSFERS Supine-sit: I Sit-stand: S Stand-sit: S GAIT Assistive Device: FWW Weight bearing: WBAT R Assist: SBA Distance: 150' in a.m.; 120' in p.m. THEREX: Patient completed a right lower extremity strengthening program, in a standing position with upper extremity support, as per flow sheet. ASSESSMENT: Patient tolerated session with some complaints of right hip soreness with transfers and weight bearing. Patient would benefit from continued gait and transfer training as well as strengthening for improved mobility. PLAN: Continue with PTs POC TREATMENT CODE/TIME: Session 1: 15 minutes; [id number] Session 2: 30 minutes; 31025, [id number]
--- NOTE | 2018-08-13 16:35 | PTTR_ITS ---
Date of service: 08/13/18 Time of Service: 16:31 PT Notes Inpatient Physical Therapy Treatment Note [facility] Date: 08/13/18 PRECAUTIONS: Fall, WBAT R SUBJECTIVE: Gilma complains of right hip soreness in a.m. And afternoon patient states that she has had a very interesting day, although her hip feels better this afternoon. OBJECTIVE: PAIN: Patient complained of right hip soreness with transfers and gait training. BED MOBILITY/TRANSFERS Supine-sit: I Sit-stand: S Stand-sit: S GAIT Assistive Device: FWW Weight bearing: WBAT R Assist: SBA Distance: 150' in a.m.; 120' in p.m. THEREX: Patient completed a right lower extremity strengthening program, in a standing position with upper extremity support, as per flow sheet. ASSESSMENT: Patient tolerated session with some complaints of right hip soreness with transfers and weight bearing. Patient would benefit from continued gait and transfer training as well as strengthening for improved mobility. PLAN: Continue with PTs POC TREATMENT CODE/TIME: Session 1: 15 minutes; [id number] Session 2: 30 minutes; 91168, 33326
[2018-08-13 17:01] VITALS: BP 146/72; PULSE 82; RESP 18; TEMP 37.2; O2SAT 95
[2018-08-13] MEDS: Simvastatin 10 MG TAB PO (21:30)
[2018-08-13] MEDS: Melatonin 3 MG TAB 6 MG PO (21:31)
[2018-08-13 22:16] VITALS: O2SAT 94
[2018-08-13 23:59] VITALS: BP 144/68; PULSE 80; RESP 18; TEMP 37.1; O2SAT 95
[2018-08-14] MEDS: Ibuprofen 600 MG TAB PO ×3 (06:22→21:52)
[2018-08-14] MEDS: Levothyroxine 75 MCG TAB PO (06:22)
[2018-08-14 07:25] VITALS: BP 186/81; PULSE 71; RESP 16; TEMP 36.7; O2SAT 98
[2018-08-14] MEDS: Lisinopril 20 MG TAB 40 MG PO (08:09)
[2018-08-14] MEDS: Omeprazole 20 MG CAPCR PO (08:10)
[2018-08-14] MEDS: amLODIPine 5 MG TAB PO (08:10)
[2018-08-14] MEDS: Ciprofloxacin 250 MG TAB PO ×2 (08:10→19:44)
[2018-08-14] MEDS: Gabapentin 100 MG CAP PO ×3 (08:10→19:45)
[2018-08-14] MEDS: oxyCODONE 5 MG TAB PO ×2 (08:10→19:44)
[2018-08-14] MEDS: Citalopram 20 MG TAB 40 MG PO (08:11)
[2018-08-14] MEDS: Acetaminophen 325 MG TAB PO ×2 (08:11→19:44)
[2018-08-14] MEDS: Nystatin POWDER 60 GM JAR TP ×2 (08:12→19:23)
[2018-08-14 10:20] VITALS: O2SAT 98
[2018-08-14 11:43] VITALS: BP 129/68; PULSE 83
[2018-08-14] MEDS: Aspirin E.C. 81 MG TABEC PO ×2 (12:32→19:45)
[2018-08-14 16:00] VITALS: BP 156/75; PULSE 86; RESP 20; TEMP 36.8; O2SAT 96
--- NOTE | 2018-08-14 16:15 | W.NUTRFU ---
Date of service: 08/14/18 Time of Service: 16:15 Nutritional Follow up NOTE: Pt. continues with excellent PO intake. RD or CDM will continue to visit pt. daily for meal selections and encourage nutrient dense PO intake. Will continue to follow progress. Time Spent in Nutritional Counseling and Treatment: JASMYN
--- NOTE | 2018-08-14 16:16 | PT.INTREAT ---
Date of service: 08/14/18 Time of Service: 16:16 PT Notes Inpatient Physical Therapy Treatment Note [facility] Date: 08/14/18 PRECAUTIONS: Fall SUBJECTIVE: Gilma reports that she continues to have soreness in right hip, although it is better today than yesterday. OBJECTIVE: PAIN: Complains of right hip soreness with transfers and weight bearing BED MOBILITY/TRANSFERS Supine?sit: I Sit-stand: S Stand-sit: S GAIT Assistive Device: FWW Weight bearing: WBAT R Assist: SBA Distance: 15' + 100' in a.m.; 120' in p.m. THEREX: Patient completed a lower extremity strengthening program, in a standing position, as per flow sheet. STAIRS: Up/down 3x4 and 2x6 using one rail/SPC and a step to pattern with supervision. ASSESSMENT: Patient tolerated session with complaints of continued right lower extremity soreness with weight bearing and transfers. Patient was able to tolerate stair training requiring supervision only. Patient would benefit from continued gait and transfer training as well as strengthening for improved mobility and activity tolerance, as well as improved ability to perform daily functional tasks at a more independent level. PLAN: Continue with PTs POC TREATMENT CODE/TIME: Session 1: 40 minutes; 25193 x2, 07260 Session 2: 15 minutes; 85301
--- NOTE | 2018-08-14 16:20 | PTTR_ITS ---
Date of service: 08/14/18 Time of Service: 16:16 PT Notes Inpatient Physical Therapy Treatment Note [facility] Date: 08/14/18 PRECAUTIONS: Fall SUBJECTIVE: Gilma reports that she continues to have soreness in right hip, although it is better today than yesterday. OBJECTIVE: PAIN: Complains of right hip soreness with transfers and weight bearing BED MOBILITY/TRANSFERS Supine?sit: I Sit-stand: S Stand-sit: S GAIT Assistive Device: FWW Weight bearing: WBAT R Assist: SBA Distance: 15' + 100' in a.m.; 120' in p.m. THEREX: Patient completed a lower extremity strengthening program, in a standing position, as per flow sheet. STAIRS: Up/down 3x4 and 2x6 using one rail/SPC and a step to pattern with supervision. ASSESSMENT: Patient tolerated session with complaints of continued right lower extremity soreness with weight bearing and transfers. Patient was able to tolerate stair training requiring supervision only. Patient would benefit from continued gait and transfer training as well as strengthening for improved mobility and activity tolerance, as well as improved ability to perform daily functional tasks at a more independent level. PLAN: Continue with PTs POC TREATMENT CODE/TIME: Session 1: 40 minutes; 39264 x2, 08289 Session 2: 15 minutes; [id number]
[2018-08-14] MEDS: Simvastatin 10 MG TAB PO (21:52)
[2018-08-14] MEDS: Melatonin 3 MG TAB 6 MG PO (21:53)
[2018-08-15 00:33] VITALS: O2SAT 95
[2018-08-15 01:12] VITALS: BP 155/70; PULSE 78; RESP 18; TEMP 36
[2018-08-15 03:46] LABS: Bilirubin Negative (Negative); Blood Negative (Negative); Clarity Clear; Glucose Negative (Negative); Ketones Negative (Negative); Leukocyte Esterase Negative (Negative); Nitrite Negative (Negative); Specific Gravity 1.015 (1.005-1.025); Urobilinogen 0.2 EU/dL (Up TO 0.2)
[2018-08-15] MEDS: Ibuprofen 600 MG TAB PO ×3 (05:36→20:59)
[2018-08-15] MEDS: Levothyroxine 75 MCG TAB PO (06:40)
[2018-08-15 07:10] VITALS: BP 148/83; PULSE 74; RESP 18; TEMP 36.8; O2SAT 96
[2018-08-15 07:45] VITALS: O2SAT 95
[2018-08-15] MEDS: amLODIPine 5 MG TAB PO (08:12)
[2018-08-15] MEDS: Ciprofloxacin 250 MG TAB PO (08:12)
[2018-08-15] MEDS: Citalopram 20 MG TAB 40 MG PO (08:12)
[2018-08-15] MEDS: oxyCODONE 5 MG TAB PO ×3 (08:12→20:58)
[2018-08-15] MEDS: Lisinopril 20 MG TAB 40 MG PO (08:12)
[2018-08-15] MEDS: Gabapentin 100 MG CAP PO ×3 (08:12→19:51)
[2018-08-15] MEDS: Aspirin E.C. 81 MG TABEC PO ×2 (08:13→19:51)
--- NOTE | 2018-08-15 08:55 | PDOC.CMACT ---
- If Service Date Differs Date of service: 08/15/18 Time of Service: 08:55 Care Management Activity Note Gilma has been using her phone in the room which has allowed to access the internet. She has books and pencils at the bedside. She met with palliative care Dr. Rubio yesterday she completed a COLST and changed her code status to DNR/DNI. Gilma state she does not want home health services. She declines a FWW she states she will order one from [employer]. She states that she would like a definite date of discharge so that she can make plans to have the walker delivered. She will need her cordelia removed she is asking to have this done before discharge. Gilma will transport home via [facility] at time of discharge coordinated by CM. P: Gilma will be discharged home she continues to receive PT and is ambulating with FWW. She will need cordelia removed per provider when ready and then be discharged home. CM to coordinate transportation with [facility].
--- NOTE | 2018-08-15 09:04 | CMACTNOTE_ITS ---
- If Service Date Differs Date of service: 08/15/18 Time of Service: 08:55 Care Management Activity Note Gilma has been using her phone in the room which has allowed to access the internet. She has books and pencils at the bedside. She met with palliative care Dr. Rubio yesterday she completed a COLST and changed her code status to DNR/DNI. Gilma state she does not want home health services. She declines a FWW she states she will order one from [employer] [facility]. She states that she would like a definite date of discharge so that she can make plans to have the walker delivered. She will need her cordelia removed she is asking to have this done before discharge. Gilma will transport home via [facility] at time of discharge coordinated by CM. P: Gilma will be discharged home she continues to receive PT and is ambulating with FWW. She will need cordelia removed per provider when ready and then be discharged home. CM to coordinate transportation with [facility].
--- NOTE | 2018-08-15 14:25 | PGE_ITS ---
Addendum entered and electronically signed by Palak Ly NP 08/15/18 14:39: Gilma was found to have a UTI, she was treated with Cipro. Repeat UA negative today. Antibiotics discontinued today. Original Note: Date of Service Date of service: 08/15/18 Time of Service: 14:24 Assessment and Plan (1) Closed right femoral fracture: Current visit: No Status: Acute Doing well postoperatively following open reduction and intramedullary nail fixation of the right femur fracture on 08/03/2018. Pain is well controlled with oxycodone. She continues to work with physical therapy, she is progressing well. Care management is working on discharge plan. Continue with current treatment. Likely for discharge in the near future. Qualifiers: Encounter type: initial encounter Femur location: shaft Fracture morp hology: transverse Fracture alignment: displaced Fracture healing: Qualified Code(s): S72.321A - Displaced transverse fracture of shaft of right femur, initial encounter for closed fracture (2) Anemia: Current visit: No Status: Chronic Normocytic, history of anemia in the past. She did have postoperative blood loss anemia and received 1 unit of packed red blood cells. Will reassess blood count in the morning. She is not symptomatic at this time. (3) Lumbar back pain with radiculopathy affecting right lower extremity: Current visit: No Status: Chronic She reports that her pain is well controlled. Continue gabapentin. Amitriptyline on hold as a potential contributing factor to her chronic imbalance. (4) Heart murmur: Current visit: No Status: Chronic Noted on admission. Recommend official echocardiogram as an outpatient. (5) Hypothyroidism (acquired): Current visit: No Status: Chronic Continue levothyroxine. (6) DVT prophylaxis: Current visit: No Status: Acute Aspirin 81 mg twice daily. We will continue upon discharge for a total of 30 days. (7) Discharge planning issues: Current visit: No Status: Acute She is a DNR/DNI. She is on swing bed status. She appears to be progressing well towards her physical therapy goals. She is eager for discharge. Potential discharge within the next 24-48 hours. This case was discussed with Dr. Valerio who is in agreement. Subjective Interval history since last seen: Gilma reports doing very well postoperatively, she is 12 days post open reduction and intramedullary nail fixation of the right femur fracture. She reports that her pain is well controlled with oxycodone. She is taking it 1-2 times per day. She is working with physical therapy. She is ambulating with a walker. She denies dizziness, shortness of breath, wheezing, coughing, chest pain/pressure, palpitations. She is eating and drinking and tolerating her diet. She denies any dysuria or hematuria. Her bowels are moving normally. She is hoping for discharge home tomorrow. Care management is working on a discharge plan with her. Exam Narrative Exam Narrative: General: Well-appearing 73-year-old female, sitting up in bed, alert and oriented, in no acute distress. HEENT: Normocephalic, atraumatic, pupils equal and round, extraocular movements intact, mucous membranes moist. Neck: Supple, no JVD. Cardiovascular: Heart has regular rate and rhythm, no murmur appreciated. Respiratory: Respirations are even and unlabored, lung sounds clear to auscultation throughout. GI: Abdomen soft, normoactive bowel sounds throughout, nontender on palpation, no masses appreciated. Extremities: Dressing on right lateral thigh clean dry and intact. [place] intact distally, open to air. No edema appreciated, peripheral pulses palpable bilaterally. Objective Objective Clinical Data: Vital Signs Temperature 36.8 C 08/15/18 07:10 Temperature Source Tympanic 08/15/18 07:10 Pulse 74 08/15/18 07:10 Pulse Rhythm Regular 08/15/18 10:03 Respiratory Rate 18 08/15/18 07:10 Respiratory Effort Non-Labored 08/15/18 10:03 Respiratory Depth Normal 08/15/18 10:03 Respiratory Pattern Normal 08/15/18 10:03 Blood Pressure 148/83 H 08/15/18 07:10 Pulse Oximetry 95 08/15/18 07:45 Oxygen Delivery Method Room Air 08/15/18 07:45 Oxygen Flow Rate 0 08/15/18 07:45 Pain Level 3 08/15/18 13:26 Comment 08/14/18 07:25 Intake & Output 08/14/18 08/15/18 08/15/18 23:59 11:59 23:59 Intake Total 900 / 1140 550 / 550 Balance 900 / 565 550 / 550 Intake: Oral 900 / 1140 550 / 550 Other: Urine Color Yellow Urine Appearance Clear Urine Odor None Comment pt state she voided in the tiolet and in the commode same not seen at this time Voiding Methods Toilet Laboratory Results WBC 10.07 k/cumm (4.4-10.8) 08/12/18 12:30 RBC 3.54 m/cumm (4.00-5.20) L 08/12/18 12:30 Hgb 10.7 g/dL (12.0-15.5) L 08/12/18 12:30 Hct 33.3 % (36.0-46.0) L 08/12/18 12:30 MCV 94.1 fL (80-95) 08/12/18 12:30 MCH 30.2 pg (27.0-33.0) 08/12/18 12:30 MCHC 32.1 g/dL (32.0-36.0) 08/12/18 12:30 RDW 15.0 % (11.7-14.6) H 08/12/18 12:30 Plt Count 518 x1000/uL (130-400) H 08/12/18 12:30 MPV 9.3 fL (8.0-11.0) 08/12/18 12:30 Immature Gran % 1.2 08/12/18 12:30 Neutrophils % 69.2 08/12/18 12:30 Lymphocytes % 18.0 08/12/18 12:30 Monocytes % 7.8 08/12/18 12:30 Eosinophils % 3.6 08/12/18 12:30 Basophils % 0.2 08/12/18 12:30 Absolute Neutrophils 6.97 k/cumm (1.2-6.7) H 08/12/18 12:30 Absolute Lymphocytes 1.81 k/cumm (1.2-3.4) 08/12/18 12:30 Absolute Monocytes 0.79 k/cumm (0.11-0.7) H 08/12/18 12:30 Absolute Eosinophils 0.36 k/cumm (0.0-0.7) 08/12/18 12:30 Absolute Basophils 0.02 k/cumm (0.0-0.2) 08/12/18 12:30 Sodium 137 mmol/L (136-145) 08/12/18 12:30 Potassium 4.4 mmol/L (3.5-5.1) 08/12/18 12:30 Chloride 101 mmol/L (98-107) 08/12/18 12:30 Carbon Dioxide 25.7 mmol/L (21.0-32.0) 08/12/18 12:30 Anion Gap 10.3 mmol/L (3-11) 08/12/18 12:30 BUN 28 mg/dL (7-18) H 08/12/18 12:30 Creatinine 0.74 mg/dL (0.55-1.02) 08/12/18 12:30 Estimated GFR/1.73 m2 >= 60.00 (mL/min/1.73m2) 08/12/18 12:30 Glucose 111 mg/dL (70-100) H 08/12/18 12:30 Calcium 9.6 mg/dL (8.5-10.1) 08/12/18 12:30 Magnesium 1.9 mg/dL (1.8-2.4) 08/12/18 12:30 Urine Color Yellow (Yellow) 08/15/18 03:35 Urine Clarity Clear 08/15/18 03:35 Urine pH 6.0 (5-8) 08/15/18 03:35 Ur Specific [place] 1.015 (1.005-1.025) 08/15/18 03:35 Urine Protein Negative mg/dL (Negative) 08/15/18 03:35 Urine Ketones Negative mg/dL (Negative) 08/15/18 03:35 Urine Blood Negative (Negative) 08/15/18 03:35 Urine Nitrite Negative (Negative) 08/15/18 03:35 Urine Bilirubin Negative (Negative) 08/15/18 03:35 Urine Urobilinogen 0.2 EU/dL (Up TO 0.2) 08/15/18 03:35 Ur Leukocyte Esterase Negative (Negative) 08/15/18 03:35 Urine RBC Not Applicable 08/09/18 14:15 Urine WBC >50 HPF (0-5) 08/09/18 14:15 Ur Epithelial Cells Few HPF (Negative) 08/09/18 14:15 Urine Crystals Not Applicable 08/09/18 14:15 Urine Bacteria Many HPF (Negative) 08/09/18 14:15 Urine Mucus Not Applicable 08/09/18 14:15 Ur Culture Indicated? Yes 08/09/18 14:15 Urine Glucose Negative mg/dL (Negative) 08/15/18 03:35
--- NOTE | 2018-08-15 15:13 | PT.INTREAT ---
Date of service: 08/15/18 Time of Service: 14:15 PT Notes Inpatient Physical Therapy Treatment Note [facility] Date: 08/15/18 SUBJECTIVE: Gilma states that she may go home tomorrow. OBJECTIVE: [] BED MOBILITY/TRANSFERS Sit-stand: I Stand-sit: I Bed-Chair: I Chair-bed: I GAIT Assistive Device: FWW Weight bearing: WBAT Assist: S Distance: 200' THEREX: strengthening routine as per flowsheet. ASSESSMENT: tolerated session well. Very independent with her functional mobility. PLAN: will continue with PT POC. Possible d/c to home tomorrow. TREATMENT CODE/TIME: 30 min. TPx1, TAx1.
[2018-08-15 16:03] VITALS: BP 152/78; PULSE 84; RESP 18; TEMP 36.4; O2SAT 98
[2018-08-15] MEDS: Nystatin POWDER 60 GM JAR TP (19:52)
[2018-08-15] MEDS: Melatonin 3 MG TAB 6 MG PO (20:59)
[2018-08-15] MEDS: Simvastatin 10 MG TAB PO (20:59)
[2018-08-16] MEDS: Ibuprofen 600 MG TAB PO ×2 (05:33→14:48)
[2018-08-16] MEDS: Levothyroxine 75 MCG TAB PO (06:38)
[2018-08-16 07:39] LABS: HCT 34.8 % (36.0-46.0); HGB 11.1 g/dL (12.0-15.5); Mean Corp. HGB Concentration 31.9 g/dL (32.0-36.0); Mean Corpuscular Hemoglobin 30.2 pg (27.0-33.0); Mean Corpuscular Volume 94.8 fL (80-95); Mean Platelet Volume 9.1 fL (8.0-11.0); Platelet Count 491 x1000/uL (130-400); RBC 3.67 m/cumm (4.00-5.20); RBC Distribution Width 15.5 % (11.7-14.6); White Blood Cell Count 10.51 k/cumm (4.4-10.8)
[2018-08-16 07:40] VITALS: BP 153/71; PULSE 79; RESP 18; TEMP 36.9; O2SAT 97
[2018-08-16] MEDS: Citalopram 20 MG TAB 40 MG PO (08:47)
[2018-08-16] MEDS: oxyCODONE 5 MG TAB PO ×2 (08:48→14:48)
[2018-08-16] MEDS: amLODIPine 5 MG TAB PO (08:48)
[2018-08-16] MEDS: Acetaminophen 325 MG TAB PO (08:48)
[2018-08-16] MEDS: Omeprazole 20 MG CAPCR PO (08:48)
[2018-08-16] MEDS: Lisinopril 20 MG TAB 40 MG PO (08:48)
[2018-08-16] MEDS: Gabapentin 100 MG CAP PO ×2 (08:48→14:48)
[2018-08-16] MEDS: Aspirin E.C. 81 MG TABEC PO (08:48)
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
--- NOTE | 2018-08-16 13:48 | PDOC.CMDIS ---
- If Service Date Differs Date of service: 08/16/18 Time of Service: 13:48 LACE Index Scoring Tool - Questions: Length of Stay (in days): 7 - 13 Acuity (Admit via E.D.?): Yes E.D. Visits: 1 - Answers: Total Score: 9 Risk of Readmission: Low Risk Care Management Discharge Reason for Hospitalization: Right femoral fracture. Repaired 08/03/18 transition to SB1 for PT and OT prior to returning home. Discharge Plan: Gilma is being discharge home today. She declines home health servcies and she ordered a walker through [employer]. Gilma will be transported home via private car with friend at time of discharge. CM assisted Gilma is coordianting a ride with [facility] for future appointments. She states she was able to schedule her first ride today. Gilma was provided information of how to contact CM for questions or concerns after discharge. Patient/Family Education Needs: Discharge education, limitations and follow up plan of care self managment, and ask me three. Services Needed at Discharge: Transportation
--- NOTE | 2018-08-16 14:26 | CMDISCH_ITS ---
- If Service Date Differs Date of service: 08/16/18 Time of Service: 13:48 LACE Index Scoring Tool - Questions: Length of Stay (in days): 7 - 13 Acuity (Admit via E.D.?): Yes E.D. Visits: 1 - Answers: Total Score: 9 Risk of Readmission: Low Risk Care Management Discharge Reason for Hospitalization: Right femoral fracture. Repaired 08/03/18 transition to SB1 for PT and OT prior to returning home. Discharge Plan: Gilma is being discharge home today. She declines home health ser vcies and she ordered a walker through [employer]. Gilma will be transported home via private car with friend at time of discharge. CM assisted Gilma is coordianting a ride with [facility] for future appointments. She states she was able to schedule her first ride today. Gilma was provided information of how to contact CM for questions or concerns after discharge. Patient/Family Education Needs: Discharge education, limitations and follow up plan of care self managment, and ask me three. Services Needed at Discharge: Transportation
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
--- NOTE | 2018-08-20 17:13 | INDS_ITS ---
Date of service: 08/20/18 PT Notes Inpatient Physical Therapy Discharge Summary Dates: 08/20/2018 Dates of Service: 08/09/2018?08/16/2018 Referring Doctor: Dr. Norton PT Orders: s/p IMN R Femur, WBAT with assistive device Precautions: WBAT on R with AD Patient Profile/Admitting Diagnosis: Patient is a 73-year-old female who suffered a fall at home. She suffered a femoral fracture, and underwent IM nailing 08/03/18. She participated in skilled PT intervention 1-2/x day for 5 days, with a total of 9 PT sessions. She demonstrated improved mobility, although continued to lack the independence required to return to independent living once she medically stabilized. She was recommended for ongoing PT in inpatient setting, either through SNF or SB level of care. She transitioned to Swing Bed for ongoing rehabilitation prior to anticipated return home once independent. PMHX: Heart murmur, depression, hypothyroid, itching, lower leg fracture, lumbar spine pain, osteoporosis Social History/Home Situation: Patient lives alone in a multilevel home with 2 NICK. She states that she typically remains on the first floor only, and does not need to access the second floor for day to day living. She uses a FWW at baseline. Does not drive. Equipment Owned/DME: Patient utilizes a FWW walker. Subjective: Patient reports 4/10 pain on her right hip with weight bearing Objective: Patient lying in bed making outside calls in preparation for her going home today. Mental Status: Alert and oriented to person,place, and time Pain: 4/10 ROM: Right Upper Extremity: Active shoulder flexion allows 60 degrees, passively 90 degrees. External rotation to neutral only. Elbow and wrist motion are within normal limits Left Upper Extremity: Active shoulder flexion allows 80 degrees, passively she tolerates 160 degrees with significant crepitus noted. She tolerates active external rotation to 45 degrees. Right Lower Extremity: Hip flexion to 90 degrees, knee range of motion allows 0- 95 degrees, ankle range of motion within normal limits Left Lower Extremity: Within normal limits Strength: Right Upper Extremity: Shoulder flexion 3-/5. External rotation 3-/5. Biceps 4/5. Triceps 4/5. Left Upper Extremity: Shoulder flexion 3-/5. External rotation 3/5. Biceps 4/5. Triceps 4/5. Right Lower Extremity: Quads 4=/5 , hamstrings 4/5, dorsiflexion/plantarflexion 5/5 Left Lower Extremity: Grossly 5/5 Bed Mobility/Transfers: Supine-sit: Independent Sit to supine: Independent Sit-stand: Independent Stand-sit: Independent Gait: Patient tolerated 200 feet of level surface ambulation with front wheeled walker, weight bearing as tolerated on the right, supervision assist only. Per PT documentation, patient tolerated up and down stairs with 3 x 4 inch steps and 2x 6inch steps using step to gait pattern one hand holding onto rail and the other hand using single-point cane. Balance: Static Sitting: Normal Dynamic Sitting: Normal Static Standing: Fair Dynamic Standing: Fair Special Tests: Mobility Limitations Standardized Measure [facility] AM-PAC 6 clicks Basic Mobility Inpatient Short Form: Raw Score: 23 CMS Score: 11.20% deficit ASSESSMENT: Patient is a 73-year-old female who has medically stabilized after acute care stay following IM nailing for right femoral fracture. Patient has received extensive PT intervention during her acute care in swing bed stay stay. Goals X1 week 1. Supine-Sit : Independent MET 2. Sit-Supine : Independent MET 3. Sit-Stand : SBA with FWW MET 4. Stand-Sit : SBA with FWW MET 5. Bed-Chair SBA with FWW MET 6. Gait up to 100 feet with FWW and SBA MET 7: Independent in Home program MET DISCHARGE RECOMMENDATIONS: Patient goes home today via friend's car. She refused home health care services. Per case management documentation patient already ordered front-wheeled walker online. TREATMENT CODE/TIME: [id number] 31 minutes beginning at 9:37 AM. Thank you for this referral. Krupa Paula, PT, DPT, CLT [facility]
== END 2018-08-16 19:30 | disposition home or self-care (01) | DRG 560 ==
PROVIDERS: General Practice; Internal Medicine; Nurse Practitioner; Admitting Provider Internal Medicine; PCP Nurse Practitioner Family; Visit Provider Internal Medicine
DX: M84.750 Atypical femoral fracture, unspecified (principal); D62 Acute posthemorrhagic anemia; R01.1 Cardiac murmur, unspecified; Z73.89 Other problems related to life management difficulty; M54.16 Radiculopathy, lumbar region; Y83.8 Other surgical procedures as the cause of abnormal reaction of the patient, or of later complication, without mention of misadventure at the time of the procedure; E03.9 Hypothyroidism, unspecified; F32.9 Major depressive disorder, single episode, unspecified; I10 Essential (primary) hypertension; R26.89 Other abnormalities of gait and mobility
CPT/HCPCS: 36415; 80048; 85027; 87077; 97110; 97162; 97166; 97530; 97535; 99239; 99254; 99306; 99308; 99316; J1650; NC; 81003; 81015; 83735; 85025; 85049; 87086; 87186

== ENCOUNTER 2018-09-02 13:12 | Outpatient (REF) | payer MEDICARE, SELFPAY ==
[2018-09-02 19:16] LABS: HCT 37.1 % (36.0-46.0); HGB 12.1 g/dL (12.0-15.5); Mean Corp. HGB Concentration 32.6 g/dL (32.0-36.0); Mean Corpuscular Volume 95.1 fL (80-95); Platelet Count 290 x1000/uL (130-400); RBC Distribution Width 15.7 % (11.7-14.6); White Blood Cell Count 6.67 k/cumm (4.4-10.8)
[2018-09-02 19:56] LABS: CREATININE 0.87 mg/dL (0.55-1.02)
== END 2018-09-02 13:32 ==
LOC: NCHCN 13:12
PROVIDERS: PCP Nurse Practitioner Family; Visit Provider Nurse Practitioner Family
DX: R94.4 Abnormal results of kidney function studies (principal); Z13.0 Encounter for screening for diseases of the blood and blood-forming organs and certain disorders involving the immune mechanism
CPT/HCPCS: 85027; 82565

== ENCOUNTER 2020-04-23 14:14 | Outpatient (REF) | payer MEDICARE, SELFPAY ==
[2020-04-23 20:36] LABS: HGB 13.3 g/dL (11.2-15.7); MCH 29.6 pg (27.0-33.0); MCHC 32.4 % (32.0-36.0); MCV 91.3 fL (80-95); MPV 10.9 fL (8.0-11.0); Platelet Count 319 10^3/uL (130-400); RBC 4.49 10^6/uL (3.93-5.22); RDW-SD 47.2 fL; WBC 7.55 10^3/uL (4.4-10.8)
[2020-04-23 21:22] LABS: ALT 18 U/L (14-59); AST 22 U/L (15-37); Albumin 4.2 g/dL (3.4-5.0); Alkaline Phosphatase 114 U/L (46-116); Anion Gap 12.6 mmol/L (3-11); BUN 21 mg/dL (7-18); Bilirubin, Total 0.3 mg/dL (0.2-1.0); CO2 22.4 mmol/L (21.0-32.0); CREATININE 0.94 mg/dL (0.55-1.02); Calcium 9.7 mg/dL (8.5-10.1); Chloride 106 mmol/L (98-107); Estimated GFR 58.37 (mL/min/1.73m2); Glucose 91 mg/dL (74-106); Potassium 3.9 mmol/L (3.5-5.1); Sodium 141 mmol/L (136-145); TSH (W/Ref FT4) 2.32 uIU/mL (0.36-3.74); Total Protein 7.6 g/dL (6.4-8.2)
== END 2020-04-23 14:34 ==
LOC: NCHCN 14:14
PROVIDERS: PCP Nurse Practitioner Family; Visit Provider Nurse Practitioner Family
DX: I10 Essential (primary) hypertension (principal); E78.5 Hyperlipidemia, unspecified; E03.9 Hypothyroidism, unspecified; R94.4 Abnormal results of kidney function studies; Z13.0 Encounter for screening for diseases of the blood and blood-forming organs and certain disorders involving the immune mechanism
CPT/HCPCS: 80053; 85027; 84443

== ENCOUNTER 2021-05-20 09:41 | Outpatient (REF) | payer MEDICARE, SELFPAY ==
[2021-05-20 14:32] LABS: Anion Gap 9.3 mmol/L (3-11); BUN 36 mg/dL (7-18); CO2 27.7 mmol/L (21.0-32.0); CREATININE 1.6 mg/dL (0.55-1.02); Calcium 9.8 mg/dL (8.5-10.1); Chloride 104 mmol/L (98-107); Estimated GFR 31.51 (mL/min/1.73m2); Glucose 66 mg/dL (74-106); Potassium 4.5 mmol/L (3.5-5.1); Sodium 141 mmol/L (136-145)
[2021-05-22 12:32] LABS: Hepatitis C Ab w Rflx HCV PCR Negative (Negative)
== END 2021-05-20 09:42 | disposition home or self-care (01) ==
LOC: NCHCN 09:41
PROVIDERS: PCP Nurse Practitioner Family; Visit Provider Nurse Practitioner Family
DX: I10 Essential (primary) hypertension (principal); Z00.00 Encounter for general adult medical examination without abnormal findings; Z11.59 Encounter for screening for other viral diseases
CPT/HCPCS: 80048; 86803

== ENCOUNTER 2022-06-08 17:17 | Outpatient (REF) | payer MEDICARE, SELFPAY ==
[2022-06-08 18:34] LABS: ALT 18 U/L (14-59); AST 30 U/L (15-37); Albumin 4.2 g/dL (3.4-5.0); Alkaline Phosphatase 123 U/L (46-116); Anion Gap 10.8 mmol/L (3-11); BUN 23 mg/dL (7-18); Bilirubin, Total 0.3 mg/dL (0.2-1.0); CO2 22.2 mmol/L (21.0-32.0); Calcium 9.8 mg/dL (8.5-10.1); Chloride 109 mmol/L (98-107); Estimated GFR 58.75 (mL/min/1.73m2); Glucose 88 mg/dL (74-106); Potassium 4.3 mmol/L (3.5-5.1); Sodium 142 mmol/L (136-145); TSH (W/Ref FT4) 1.35 uIU/mL (0.36-3.74); Total Protein 7.8 g/dL (6.4-8.2)
== END 2022-06-08 17:18 | disposition home or self-care (01) ==
LOC: NCHCN 17:17
PROVIDERS: Visit Provider Nurse Practitioner Family
DX: I10 Essential (primary) hypertension (principal); E03.9 Hypothyroidism, unspecified; E78.5 Hyperlipidemia, unspecified; N39.3 Stress incontinence (female) (male); G47.00 Insomnia, unspecified
CPT/HCPCS: 80053; 84443; 85025